=== PATIENT | female | born 1975 ===

== ENCOUNTER → 2020-06-19 13:38 | Outpatient (BNVA) | payer OTHER, SELFPAY | PROVIDERS: PCP Nurse Practitioner Family; Referring Provider Nurse Practitioner Family; Visit Provider Nurse Practitioner | DX: K21.9 Gastro-esophageal reflux disease without esophagitis (principal); K59.04 Chronic idiopathic constipation; K75.81 Nonalcoholic steatohepatitis (NASH); E66.01 Morbid (severe) obesity due to excess calories; R74.8 Abnormal levels of other serum enzymes; R30.0 Dysuria | CPT/HCPCS: 99213 ==

== ENCOUNTER → 2020-07-05 13:17 | Outpatient (BNVA) | payer OTHER, SELFPAY | PROVIDERS: PCP Nurse Practitioner Family; Referring Provider Nurse Practitioner Family; Visit Provider Nurse Practitioner | DX: K21.9 Gastro-esophageal reflux disease without esophagitis (principal); K59.04 Chronic idiopathic constipation; K75.81 Nonalcoholic steatohepatitis (NASH); R35.0 Frequency of micturition; E66.01 Morbid (severe) obesity due to excess calories; R81 Glycosuria; Z79.899 Other long term (current) drug therapy | CPT/HCPCS: 99214 ==

== ENCOUNTER 2020-07-12 11:07 | Outpatient (REF) | payer OTHER, SELFPAY ==
[2020-07-12 14:13] LABS: Estimated Average Glucose 120 mg/dL; Hemoglobin A1c % 5.8 %
[2020-07-12 14:15] LABS: Anion Gap 14 (12-20); Blood Urea Nitrogen 9 mg/dL (9-16); Calcium 9.4 mg/dL (8.4-10.2); Carbon Dioxide 28 mmol/L (22-29); Chloride 103 mmol/L (96-108); Estimated Glomerular Filt Rate > 60; Glucose Random 86 mg/dL (60-115); Potassium 4.5 mmol/l (3.3-5.1); Sodium 140 mmol/L (135-145)
== END 2020-07-12 11:08 | disposition home or self-care (01) ==
LOC: HO.HMGCLDS 11:07
PROVIDERS: PCP Nurse Practitioner Family; Visit Provider Nurse Practitioner Family
DX: R81 Glycosuria (principal)
CPT/HCPCS: 80048; 83036

== ENCOUNTER 2021-01-17 10:16 | Outpatient (REF) | payer OTHER, SELFPAY ==
[2021-01-17 13:50] LABS: MANUAL DIFF FLAG NO
[2021-01-17 13:54] LABS: Basophils Absolute Auto 0.1 X10*3/uL (0.0-0.2); Basophils Percent Auto 0.8 % (0-2); Eosinophils Absolute Auto 0.5 X10*3/uL (0.0-0.4); Eosinophils Percent Auto 3.8 % (0-4); Hematocrit 43.1 % (37-47); Hemoglobin 13.4 g/dl (12.0-16.0); Imm Gran Abs Auto 0.08 X10*3/uL (0.00-0.03); Imm Gran Pct Auto 0.7 % (0.0-0.4); Mean Corpuscular HGB Conc 31.1 g/dl (31.0-35.0); Mean Corpuscular Hemoglobin 23.1 pg (27.0-33.0); Mean Corpuscular Volume 74.3 fL (80-98); Mean Platelet Volume 10.8 fL (9.4-12.3); Monocytes Absolute Auto 0.7 X10*3/uL (0.1-1.2); Monocytes Percent Auto 5.5 % (2-11); Neutrophils Absolute Auto 7.7 X10*3/uL (2.0-8.3); Neutrophils Percent Auto 64.2 % (45-73); Platelet Count 332 X10*3/uL (160-400); Red Cell Distribution Width 17.2 % (11.0-16.0); White Blood Count 11.9 X10*3/uL (4.8-10.8)
[2021-01-17 13:58] LABS: Glucose Urine UA NEG (NEG); Leukocyte Esterase Urine NEG (NEG); Nitrite Urine NEG (NEG); PH 5.5 (5.0-8.0); Specific Gravity - Urine 1.025 (1.005-1.025); Urine Blood NEG (NEG); Urine Ketones NEG (NEG); Urine Protein NEG (NEG-TRACE)
[2021-01-17 14:00] LABS: Appearance Urine CLEAR; Color Urine YELLOW
[2021-01-17 14:03] LABS: D Dimer < 200 NG/ML
[2021-01-17 14:06] LABS: Alanine Aminotransferase 41 U/L (0-31); Albumin Level 4.1 g/dL (3.5-5.0); Alkaline Phosphatase 230 U/L (39-117); Anion Gap 13 (12-20); Aspartate Amino Transferase 27 U/L (5-31); Bilirubin Total 0.5 mg/dL (0.0-1.0); Blood Urea Nitrogen 12 mg/dL (9-16); Calcium 9.2 mg/dL (8.4-10.2); Carbon Dioxide 25 mmol/L (22-29); Chloride 104 mmol/L (96-108); Estimated Glomerular Filt Rate > 60; Glucose Random 101 mg/dL (60-115); Sodium 138 mmol/L (135-145); Total Protein 7.3 g/dL (6.5-8.0)
== END 2021-01-17 10:17 | disposition home or self-care (01) ==
LOC: HO.LAB 10:16
PROVIDERS: PCP Nurse Practitioner Family; Visit Provider Nurse Practitioner
DX: R74.8 Abnormal levels of other serum enzymes (principal); K75.81 Nonalcoholic steatohepatitis (NASH); K59.04 Chronic idiopathic constipation; K21.9 Gastro-esophageal reflux disease without esophagitis; E66.01 Morbid (severe) obesity due to excess calories; R30.0 Dysuria; R81 Glycosuria; M79.89 Other specified soft tissue disorders; M21.962 Unspecified acquired deformity of left lower leg; E13.9 Other specified diabetes mellitus without complications; N39.0 Urinary tract infection, site not specified
CPT/HCPCS: 36415; 80053; 81003; 85025; 85379

== ENCOUNTER → 2021-03-03 10:12 | Outpatient (BNVA) | payer OTHER, SELFPAY | PROVIDERS: PCP Nurse Practitioner Family; Visit Provider Nurse Practitioner ==

== ENCOUNTER → 2021-03-26 08:14 | Outpatient (BNVA) | payer OTHER, SELFPAY | PROVIDERS: Visit Provider Internal Medicine ==

== ENCOUNTER 2021-03-27 09:34 | Outpatient (REF) | payer OTHER, SELFPAY ==
--- NOTE | ~2021-03-27 | US_ITS ---
EXAMINATION: US ABDOMEN LIMITED CLINICAL INFORMATION: Nonalcoholic steatohepatitis. COMPARISON: CT abdomen and pelvis 01/29/2020. Ultrasound abdomen complete 01/02/2020 and 07/04/2019. TECHNIQUE: Real-time imaging of the right upper quadrant abdominal viscera. FINDINGS: PANCREAS: Not well seen due to overlying bowel gas. LIVER: The liver is normal in size. The liver contour is normal. Increased parenchymal echogenicity. No focal hepatic lesion. There is no intrahepatic biliary duct dilatation seen. GALLBLADDER: Normal. The gallbladder is physiologically distended without evidence of stones, sludge, polyps, wall thickening or pericholecystic fluid. COMMON BILE DUCT: Normal in caliber measuring 0.3 cm in diameter. RIGHT KIDNEY: Normal. No hydronephrosis. No renal calculi or focal parenchymal lesions. The kidney measures 10.8 cm in maximum dimension. FREE FLUID: None. US/US abdomen limited IMPRESSION: Increased hepatic parenchymal echogenicity, which can be seen in the setting of steatosis. Underlying hepatocellular disease cannot be excluded. No hepatic parenchymal lesion or biliary ductal dilatation.
[2021-03-27 11:31] LABS: Alanine Aminotransferase 31 U/L (0-31); Albumin Level 4.1 g/dL (3.5-5.0); Alkaline Phosphatase 230 U/L (39-117); Anion Gap 12 (12-20); Aspartate Amino Transferase 26 U/L (5-31); Bilirubin Direct 0.2 mg/dL (0.0-0.5); Bilirubin Total 0.4 mg/dL (0.0-1.0); Blood Urea Nitrogen 10 mg/dL (9-16); Calcium 9.5 mg/dL (8.4-10.2); Carbon Dioxide 26 mmol/L (22-29); Chloride 106 mmol/L (96-108); Estimated Glomerular Filt Rate > 60; Glucose Random 93 mg/dL (60-115); Phosphorus 3.3 mg/dL (2.7-4.5); Potassium 4.2 mmol/L (3.3-5.1); Sodium 140 mmol/L (135-145); Total Protein 7.4 g/dL (6.5-8.0)
[2021-03-27 11:42] LABS: Vitamin D 25-OH Total 45.3 ng/mL (>30)
[2021-03-31 13:22] LABS: Alpha Fetoprotein 2.2 ng/mL
[2021-04-01 10:27] LABS: Calcium (PTHI) 9.1 mg/dL (8.6-10.2); PTHI 50 pg/mL (14-64)
[2021-04-01 11:27] LABS: Alkaline Phosphatase Bone 29.1 mcg/L (5.0-18.8)
== END 2021-03-27 09:35 | disposition home or self-care (01) ==
LOC: HO.US 09:34
PROVIDERS: Absent Provider Internal Medicine; PCP Nurse Practitioner Family; Visit Provider Nurse Practitioner
DX: K75.81 Nonalcoholic steatohepatitis (NASH) (principal); R74.8 Abnormal levels of other serum enzymes; E55.9 Vitamin D deficiency, unspecified
CPT/HCPCS: 36415; 76705; 80053; 80076; 82105; 82248; 82306; 83970; 84075; 84100

== ENCOUNTER 2021-04-09 14:06 | Outpatient (REF) | payer OTHER, SELFPAY ==
--- NOTE | ~2021-04-09 | XR_ITS ---
EXAMINATION: XR FOOT, LEFT CLINICAL INFORMATION: Acquired deformity of left lower leg COMPARISON: Negative exam left foot 12/04/2009 TECHNIQUE: AP, lateral, and oblique views of the left foot. FINDINGS: There is a small calcaneal heel enthesophyte. Ankle mortise and subtalar joints are normal. There is no visible acute fracture, dislocation or subluxation seen. There is moderate degenerative spurring first and second tarsometatarsal joint best visualized on AP and lateral views. There is moderate distal foot soft tissue swelling. XR/XR foot LT min 3V IMPRESSION: Moderate degenerative hypertrophic spurring dorsal first and second tarsometatarsal joint. Also visualized is a small calcaneal enthesophyte. There is moderate distal dorsal soft tissue swelling. No visible acute fracture or dislocation seen.
== END 2021-04-09 14:07 | disposition home or self-care (01) ==
LOC: HO.XRAY 14:06
PROVIDERS: PCP Nurse Practitioner Family; Visit Provider Internal Medicine
DX: M21.962 Unspecified acquired deformity of left lower leg (principal)
CPT/HCPCS: 73630

== ENCOUNTER 2021-05-02 09:57 | Outpatient (REF) | payer OTHER, SELFPAY ==
[2021-05-02 12:03] LABS: MANUAL DIFF FLAG NO
[2021-05-02 12:14] LABS: Basophils Absolute Auto 0.1 X10*3/uL (0.0-0.2); Basophils Percent Auto 0.8 % (0-2); Eosinophils Absolute Auto 0.4 X10*3/uL (0.0-0.4); Eosinophils Percent Auto 3.2 % (0-4); Hematocrit 41.9 % (37-47); Hemoglobin 12.9 g/dl (12.0-16.0); Imm Gran Abs Auto 0.07 X10*3/uL (0.00-0.03); Imm Gran Pct Auto 0.6 % (0.0-0.4); Lymphocytes Absolute Auto 2.8 X10*3/uL (1.2-4.9); Lymphocytes Percent Auto 24.1 % (20-40); Mean Corpuscular HGB Conc 30.8 g/dl (31.0-35.0); Mean Corpuscular Hemoglobin 22.9 pg (27.0-33.0); Mean Corpuscular Volume 74.4 fL (80-98); Monocytes Absolute Auto 0.4 X10*3/uL (0.1-1.2); Monocytes Percent Auto 3.7 % (2-11); Neutrophils Absolute Auto 7.8 X10*3/uL (2.0-8.3); Neutrophils Percent Auto 67.6 % (45-73); Platelet Count 330 X10*3/uL (160-400); Red Blood Count 5.63 X10*6/uL (4.20-5.50); Red Cell Distribution Width 15.4 % (11.0-16.0); White Blood Count 11.6 X10*3/uL (4.8-10.8)
[2021-05-02 12:39] LABS: Anion Gap 12 (12-20); Blood Urea Nitrogen 12 mg/dL (9-16); Calcium 9.7 mg/dL (8.4-10.2); Carbon Dioxide 26 mmol/L (22-29); Chloride 107 mmol/L (96-108); Estimated Glomerular Filt Rate > 60; Glucose Random 107 mg/dL (60-115); Potassium 4.3 mmol/L (3.3-5.1); Sodium 141 mmol/L (135-145)
[2021-05-02 13:21] LABS: Erythrocyte Sedimentation Rate 36 MM/HR (0-20)
[2021-05-03 10:46] LABS: IgA 324 mg/dL (47-310); IgG 1087 mg/dL (600-1640); IgM 159 mg/dL (50-300)
[2021-05-04 03:37] LABS: SARS COV2 IgG Negative (Negative)
[2021-05-08 17:30] LABS: Asperg fumigatus Precip Abs NEGATIVE (NEGATIVE); Micropoly faeni Abs NEGATIVE (NEGATIVE); Pigeon serum Abs NEGATIVE (NEGATIVE); Saccharo pora viridis Abs NEGATIVE (NEGATIVE); Thermo candidus Abs NEGATIVE (NEGATIVE); Thermoa vulgaris #1 NEGATIVE (NEGATIVE)
== END 2021-05-02 09:58 | disposition home or self-care (01) ==
LOC: HO.LAB 09:57
PROVIDERS: PCP Nurse Practitioner Family; Visit Provider Hospitalist
DX: Z01.84 Encounter for antibody response examination (principal); J18.9 Pneumonia, unspecified organism; J45.909 Unspecified asthma, uncomplicated; G47.33 Obstructive sleep apnea (adult) (pediatric); R06.00 Dyspnea, unspecified
CPT/HCPCS: 36415; 80048; 82784; 82785; 85025; 85652; 86003; 86331; 86606; 86609; 86769; 99202

== ENCOUNTER → 2021-05-05 10:50 | Outpatient (REF) | payer OTHER, SELFPAY ==
--- NOTE | ~2021-05-05 | NM_ITS ---
EXAMINATION: NM BONE SCAN OF THE WHOLE BODY CLINICAL INFORMATION: Osteitis deformans of unspecified bone. COMPARISON: No previous bone scan is available for comparison. Radiographs of the left foot dated 04/09/2021 are the only recent radiographs available for comparison. TECHNIQUE: Multiple gamma scintillation camera images of the whole body were performed 3 hours following the intravenous administration of 36 mCi Tc-99m MDP. FINDINGS: In the head, no significant abnormalities are present. In the thoracic cage and upper extremities, no significant abnormalities are present. In the spine, there is minimally increased activity in a small focus in the left side of the mid cervical spine, probably in the posterior elements at L3. In the pelvis, no significant abnormalities are present. In the lower extremities, no significant abnormalities are present. No other definite bony abnormalities are noted. The urinary bladder and faint visualization of both kidneys are noted. NM/NM bone scan whole body IMPRESSION: Essentially normal whole body bone scan. Minimal abnormality in the mid lumbar spine may be due to some left-sided facet arthropathy at L3. There are no abnormalities suspicious for Paget's disease of bone (Osteitis deformans).
== END ==
LOC: HO.NUCMED 10:50
PROVIDERS: Visit Provider Internal Medicine
DX: M88.9 Osteitis deformans of unspecified bone (principal)
CPT/HCPCS: 78306; A9503

== ENCOUNTER 2021-05-22 09:43 | Outpatient (REF) | payer OTHER, SELFPAY ==
--- NOTE | 2021-05-22 17:42 | PFT_ITS ---
INDICATION: Dyspnea. SPIROMETRY: The FEV1 to FVC 97% with an FEV1 of 2.47 L, which is 99% predicted, and an FVC of 2.55 L, which is 83% predicted. No significant response to bronchodilators noted. Maximum voluntary ventilation 72% predicted. LUNG VOLUMES: Total lung capacity 113% predicted and residual volume 170% predicted. The expiratory reserve volume is 23% predicted. DIFFUSION CAPACITY: DLCO 98% predicted. COMPARISONS: None. INTERPRETATION: No obstructive nor restrictive ventilatory defects identified. No significant response to bronchodilators noted. There is a mild decrease in maximum voluntary ventilation secondary to likely deconditioning. Lung volumes with significant air trapping and a trend of hyperinflation and a decrease in the expiratory reserve volume secondary to an elevated BMI. Diffusion capacity is within normal limits. Clinical correlation warranted. Also to note, if asthma is in differential, methacholine challenge may be helpful in assessing for hyper-reactive airways. MD CHANEL Green/MODL / [id number]
== END 2021-05-22 09:44 | disposition home or self-care (01) ==
LOC: HO.RESP 09:43
PROVIDERS: PCP Nurse Practitioner Family; Visit Provider Hospitalist
DX: R06.00 Dyspnea, unspecified (principal); J18.9 Pneumonia, unspecified organism
CPT/HCPCS: 94060; 94727; 94729

== ENCOUNTER → 2021-06-06 14:37 | Outpatient (BNVA) | payer OTHER, SELFPAY | PROVIDERS: PCP Nurse Practitioner Family; Visit Provider Hospitalist | DX: J45.909 Unspecified asthma, uncomplicated (principal); J18.9 Pneumonia, unspecified organism; G47.33 Obstructive sleep apnea (adult) (pediatric); R06.00 Dyspnea, unspecified | CPT/HCPCS: 99212 ==

== ENCOUNTER → 2021-06-25 09:58 | Outpatient (REF) | payer OTHER, SELFPAY ==
--- NOTE | ~2021-06-25 | CT_ITS ---
EXAMINATION: CT CHEST WITHOUT CONTRAST CLINICAL INFORMATION: Pneumonia. COMPARISON: Most recent chest radiograph dated 12/19/2019. TECHNIQUE: Multidetector volumetric CT imaging of the chest was done. Axial MIP volume rendering provided. Sagittal and coronal reformatted images were obtained. This CT examination was performed using dose optimization techniques as appropriate, variously including the following: *Automated exposure control *Adjustment of mA and/or kV according to patient size (this includes techniques or standardized protocols for targeted exams where dose is matched to indication/reason for exam; i.e. extremities or head) *Use of iterative reconstruction technique DLP: 286 mGy-cm. FINDINGS: OIL DEVELOPER: Remarkable. LUNGS: Minimal ground-glass airspace opacities along the peripheral aspect of the right middle lobe and right lower lobe as well as medially within the right lower lobe. Additionally, similar ground-glass opacities centrally and inferiorly within the left lower lobe. Findings could represent very early pneumonia in the appropriate clinical setting. No large, confluent airspace consolidation. No significant pulmonary nodule or mass. The central airways are patent. MEDIASTINUM: No cardiomegaly. No pericardial effusion. No thoracic aortic dilatation. No significant superior mediastinal or hilar lymphadenopathy. Partially visualized and unremarkable thyroid. PLEURA: There is no pleural effusion. No pleural mass or thickening. AXILLA: No lymphadenopathy. UPPER ABDOMEN: Unremarkable. OSSEOUS STRUCTURES: Unremarkable. CT/CT chest wo con IMPRESSION: Minimal ground-glass airspace opacities within the bilateral lower lobes as well as the right middle lobe. Findings could represent very early pneumonia in the appropriate clinical setting. No large, confluent airspace opacity.
== END ==
LOC: HO.SL 09:58
PROVIDERS: PCP Nurse Practitioner Family; Visit Provider Hospitalist
DX: G47.33 Obstructive sleep apnea (adult) (pediatric) (principal); R40.0 Somnolence; R06.02 Shortness of breath; J18.9 Pneumonia, unspecified organism; J45.909 Unspecified asthma, uncomplicated
CPT/HCPCS: 71250; 95806

== ENCOUNTER → 2021-07-28 10:11 | Outpatient (BNVA) | payer OTHER, SELFPAY | PROVIDERS: PCP Nurse Practitioner Family; Visit Provider Hospitalist | DX: J45.909 Unspecified asthma, uncomplicated (principal); G47.33 Obstructive sleep apnea (adult) (pediatric); J18.9 Pneumonia, unspecified organism; R06.00 Dyspnea, unspecified; R10.13 Epigastric pain | CPT/HCPCS: 99212 ==

== ENCOUNTER 2021-09-16 15:22 | Outpatient (REF) | payer OTHER, SELFPAY ==
--- NOTE | ~2021-09-16 | XR_ITS ---
EXAMINATION: XR KNEE, RIGHT XR KNEE, LEFT CLINICAL INFORMATION: Bilateral knee pain. COMPARISON: None TECHNIQUE: Patient is imaged in 4 views including upright AP view with weightbearing. There are total of 8 views. FINDINGS: Right: Normal bony mineralization. No fracture, dislocation, or definite suprapatellar effusion. Hoffa's fat pad appears normal. There is no joint narrowing or erosive change or chondrocalcinosis. No lateralization patella. Left: Normal bony mineralization. No fracture, dislocation, or definite suprapatellar effusion. Hoffa's fat pad appears normal. There is no joint narrowing or erosive change or chondrocalcinosis. No lateralization patella. XR/XR knee LT 3V IMPRESSION: Unremarkable bilateral knees.
--- NOTE | ~2021-09-16 | XR_ITS ---
EXAMINATION: XR KNEE, RIGHT XR KNEE, LEFT CLINICAL INFORMATION: Bilateral knee pain. COMPARISON: None TECHNIQUE: Patient is imaged in 4 views including upright AP view with weightbearing. There are total of 8 views. FINDINGS: Right: Normal bony mineralization. No fracture, dislocation, or definite suprapatellar effusion. Hoffa's fat pad appears normal. There is no joint narrowing or erosive change or chondrocalcinosis. No lateralization patella. Left: Normal bony mineralization. No fracture, dislocation, or definite suprapatellar effusion. Hoffa's fat pad appears normal. There is no joint narrowing or erosive change or chondrocalcinosis. No lateralization patella. XR/XR knee RT 3V IMPRESSION: Unremarkable bilateral knees.
[2021-09-16 17:38] LABS: Alanine Aminotransferase 29 U/L (0-31); Albumin Level 4.4 g/dL (3.5-5.0); Alkaline Phosphatase 200 U/L (39-117); Aspartate Amino Transferase 20 U/L (5-31); Bilirubin Direct < 0.2 mg/dL (0.0-0.5); Bilirubin Total 0.2 mg/dL (0.0-1.0)
[2021-09-17 11:31] LABS: Alpha Fetoprotein 2.3 ng/mL
[2021-09-21 06:06] LABS: Alk.Phos Iso. Macrohepatic 0 % (<=0); Alk.Phos Isoenzymes Bone 31 % (28-66); Alk.Phos Isoenzymes Intest 0 % (1-24); Alk.Phos Isoenzymes Liver 69 % (25-69); Alk.Phos Isoenzymes Placental 0 % (<=0); Alk.Phos Isoenzymes Total 185 U/L (31-125)
== END 2021-09-16 15:23 | disposition home or self-care (01) ==
LOC: HO.XRAY 15:22
PROVIDERS: PCP Nurse Practitioner Family; Referring Provider Nurse Practitioner Family; Visit Provider Nurse Practitioner
DX: K21.9 Gastro-esophageal reflux disease without esophagitis (principal); K75.81 Nonalcoholic steatohepatitis (NASH); K59.04 Chronic idiopathic constipation; R74.8 Abnormal levels of other serum enzymes; M25.561 Pain in right knee; M25.562 Pain in left knee
CPT/HCPCS: 36415; 73562; 80076; 82105; 84080; 99212

== ENCOUNTER → 2021-10-14 15:45 | Outpatient (BNVA) | payer OTHER, SELFPAY | PROVIDERS: PCP Nurse Practitioner Family; Referring Provider Nurse Practitioner Family; Visit Provider Nurse Practitioner | DX: K75.81 Nonalcoholic steatohepatitis (NASH) (principal); K59.04 Chronic idiopathic constipation; K21.9 Gastro-esophageal reflux disease without esophagitis; M79.89 Other specified soft tissue disorders; R74.8 Abnormal levels of other serum enzymes | CPT/HCPCS: 99212 ==

== ENCOUNTER 2021-10-30 10:50 | Outpatient (REF) | payer OTHER, SELFPAY ==
[2021-10-30 12:16] LABS: MANUAL DIFF FLAG NO
[2021-10-30 12:19] LABS: Basophils Absolute Auto 0.1 X10*3/uL (0.0-0.2); Eosinophils Absolute Auto 0.2 X10*3/uL (0.0-0.4); Hematocrit 42.8 % (37.0-47.0); Hemoglobin 13.2 g/dl (12.0-16.0); Imm Gran Abs Auto 0.06 X10*3/uL (0.00-0.03); Imm Gran Pct Auto 0.5 % (0.0-0.4); Lymphocytes Percent Auto 27.1 % (20-40); Mean Corpuscular HGB Conc 30.8 g/dl (31.0-35.0); Mean Corpuscular Hemoglobin 23.1 pg (27.0-33.0); Mean Corpuscular Volume 74.8 fL (80.0-98.0); Mean Platelet Volume 10.7 fL (9.4-12.3); Monocytes Absolute Auto 0.5 X10*3/uL (0.1-1.2); Monocytes Percent Auto 4.4 % (2-11); Neutrophils Absolute Auto 7.3 x10*3/uL (2.0-8.3); Platelet Count 329 X10*3/uL (160-400); Red Blood Count 5.72 X10*6/uL (4.20-5.50); Red Cell Distribution Width 15.1 % (11.0-16.0); White Blood Count 11.2 X10*3/uL (4.8-10.8)
[2021-10-30 13:04] LABS: Erythrocyte Sedimentation Rate 57 MM/HR (0-20)
[2021-11-03 15:31] LABS: Scleroderma 70 Antibody <1.0 NEG AI (<1.0 NEG)
[2021-11-03 21:52] LABS: Immunoglobulin E 29 kU/L (<OR=114)
[2021-11-04 12:37] LABS: Anti Nuclear Antibody Pattern Nuclear, Homogeneous; Anti Nuclear Antibody Screen POSITIVE (NEGATIVE); Anti Nuclear Antibody Titer 1:40 titer
[2021-11-04 15:52] LABS: Cyclic Citrullinated Peptide <16 UNITS
== END 2021-10-30 10:51 | disposition home or self-care (01) ==
LOC: HO.LAB 10:50
PROVIDERS: PCP Nurse Practitioner Family; Visit Provider Hospitalist
DX: G47.33 Obstructive sleep apnea (adult) (pediatric) (principal); R06.00 Dyspnea, unspecified; J18.9 Pneumonia, unspecified organism; J44.9 Chronic obstructive pulmonary disease, unspecified
CPT/HCPCS: 36415; 82785; 85025; 85652; 86038; 86039; 86200; 86235; 89051; 99212

== ENCOUNTER → 2021-12-25 10:21 | Outpatient (BNVA) | payer OTHER, SELFPAY | PROVIDERS: PCP Nurse Practitioner Family; Visit Provider Hospitalist | DX: R06.00 Dyspnea, unspecified (principal); J18.9 Pneumonia, unspecified organism; J44.9 Chronic obstructive pulmonary disease, unspecified; J45.909 Unspecified asthma, uncomplicated; G47.33 Obstructive sleep apnea (adult) (pediatric); L08.9 Local infection of the skin and subcutaneous tissue, unspecified | CPT/HCPCS: 99212 ==

== ENCOUNTER 2022-04-08 07:24 | Outpatient (REF) | payer OTHER, SELFPAY ==
--- NOTE | ~2022-04-08 | XR_ITS ---
EXAMINATION: XR ANKLE, LEFT CLINICAL INFORMATION: Ankle pain. COMPARISON: None. TECHNIQUE: AP, lateral, and mortise views of the left ankle. FINDINGS: The ankle mortise and subtalar joints are normal. There is moderate bimalleolar soft tissue swelling. No visible acute fracture or dislocation seen. There is a small calcaneal enthesophyte. XR/XR ankle LT min 3V IMPRESSION: Small calcaneal heel enthesophyte. No acute fracture or dislocation seen. There is a moderate-sized enthesophyte along the dorsal metatarsal-tarsal joint.
== END 2022-04-08 07:25 | disposition home or self-care (01) ==
LOC: HO.HOSX 07:24
PROVIDERS: Visit Provider Physician Assistant
DX: S93.402A Sprain of unspecified ligament of left ankle, initial encounter (principal)
CPT/HCPCS: 73610; 99202; 99212

== ENCOUNTER 2022-04-14 16:34 | Outpatient (REF) | payer OTHER, SELFPAY ==
[2022-04-14 16:50] LABS: MANUAL DIFF FLAG NO
[2022-04-14 17:55] LABS: Basophils Absolute Auto 0.1 X10*3/uL (0.0-0.2); Basophils Percent Auto 0.8 % (0-2); Eosinophils Absolute Auto 0.5 X10*3/uL (0.0-0.4); Eosinophils Percent Auto 3.7 % (0-4); Hematocrit 40.7 % (37.0-47.0); Hemoglobin 12.6 g/dl (12.0-16.0); Imm Gran Abs Auto 0.07 X10*3/uL (0.00-0.03); Imm Gran Pct Auto 0.6 % (0.0-0.4); Lymphocytes Absolute Auto 2.9 X10*3/uL (1.2-4.9); Lymphocytes Percent Auto 23.2 % (20-40); Mean Corpuscular Hemoglobin 22.7 pg (27.0-33.0); Mean Corpuscular Volume 73.3 fL (80.0-98.0); Mean Platelet Volume 10.7 fL (9.4-12.3); Monocytes Absolute Auto 0.7 X10*3/uL (0.1-1.2); Monocytes Percent Auto 5.2 % (2-11); Neutrophils Absolute Auto 8.4 x10*3/uL (2.0-8.3); Neutrophils Percent Auto 66.5 % (45-73); Platelet Count 318 X10*3/uL (160-400); Red Blood Count 5.55 X10*6/uL (4.20-5.50); Red Cell Distribution Width 16.2 % (11.0-16.0); White Blood Count 12.6 X10*3/uL (4.8-10.8)
[2022-04-14 18:15] LABS: Alanine Aminotransferase 32 U/L (0-31); Albumin Level 3.9 g/dL (3.5-5.0); Alkaline Phosphatase 221 U/L (39-117); Anion Gap 17 (12-20); Aspartate Amino Transferase 28 U/L (5-31); Bilirubin Total 0.2 mg/dL (0.0-1.0); Blood Urea Nitrogen 12 mg/dL (9-16); Calcium 8.8 mg/dL (8.4-10.2); Carbon Dioxide 23 mmol/L (22-29); Chloride 108 mmol/L (96-108); Estimated Glomerular Filt Rate > 60; Glucose Random 103 mg/dL (60-115); Potassium 4.5 mmol/L (3.3-5.1); Sodium 143 mmol/L (135-145); Total Protein 7.2 g/dL (6.5-8.0)
[2022-04-17 13:21] LABS: Alpha Fetoprotein 1.8 ng/mL
== END 2022-04-14 16:35 | disposition home or self-care (01) ==
LOC: HO.LAB 16:34
PROVIDERS: PCP Nurse Practitioner Family; Visit Provider Nurse Practitioner
DX: K75.81 Nonalcoholic steatohepatitis (NASH) (principal); K59.04 Chronic idiopathic constipation; K21.9 Gastro-esophageal reflux disease without esophagitis
CPT/HCPCS: 36415; 80053; 82105; 85025; 99212

== ENCOUNTER 2022-04-27 14:00 | Outpatient (RCR) | payer OTHER, SELFPAY ==
--- NOTE | 2022-04-15 15:02 | MHC.PT.EP ---
[facility] [place] Office [place] Office [place] Office [address] Aiyana Hdz [address] [phone] F: [phone] F: [phone] F: [phone] F: [phone] Physical Therapy Plan of Care Date of Evaluation: Date of Surgery: n/a Diagnosis: L ankle sprain Assessment: Patient is a 47 year old R handed female who presents with s/s consistent with L ankle sprain. 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 Patient past medical history includes Abdominal adhesions, Asthma, Asthma-COPD overlap syndrome, Dyspnea, Elevated alkaline phosphatase level, Epigastric pain, BRENNA (obstructive sleep apnea), Paget disease of bone, Pneumonia, and Pneumonitis. Current impairments include pain, posture, ROM, strength, activity tolerance and functional mobility. Functional limitations include decreased ability to walk, stand, weight bear, and negotiate stairs. Patient is motivated with good rehab potential. Skilled PT will address impairments and functional limitations in order to achieve goals. Frequency and Duration: The patient will be seen 1x/week for 6 weeks Short Term Goals: I with HEP - 2 weeks AROM pain free and WNL - 3 weeks SLB > 20 seconds - 3 weeks Stagecraft Professor Goals: Able to walk 20 minutes without pain - 5 weeks LEFS 40/80 - 6 weeks Strength 4+/5 grossly - 6 weeks Return to PLOF - 6 weeks Treatment Plan: Modalities to reduce pain, spasms and effusion. Manual therapy to restore motion and function. Therapeutic exercise to improve strength and flexibility. Neuromuscular re-education for posture and balance. Therapeutic activities to return to functional activities of daily living. Electronically signed by: Justin Harris, PT Please sign and return to therapist. Thank you for your referral.
--- NOTE | 2022-08-26 08:19 | MHC.PT.DC ---
[facility] [place] Office [place] Office [place] Office [address] Aiyana Hdz [address] [phone] F: [phone] F: [phone] F: [phone] F: [phone] Physical Therapy Discharge Report Diagnosis: L ankle sprain Date of Surgery: n/a Date of Evaluation: 04/15/22 Date of Discharge: 08/26/22 Treatments to Date: 2 Cancellations to Date: No Shows to Date: Discharge Status: Independent with HEP Patient Elected to Stop Discharge Summary: Pt elected to continue with HEP exclusively after feeling much better. 04/27/22: pt progressing well with skilled PT. improved strength and ROM in ankle. we will progress as tolerated. CP to finish Patient is a 47 year old R handed female who presents with s/s consistent with L ankle sprain. 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 Patient past medical history includes Abdominal adhesions, Asthma, Asthma-COPD overlap syndrome, Dyspnea, Elevated alkaline phosphatase level, Epigastric pain, BRENNA (obstructive sleep apnea), Paget disease of bone, Pneumonia, and Pneumonitis. Current impairments include pain, posture, ROM, strength, activity tolerance and functional mobility. Functional limitations include decreased ability to walk, stand, weight bear, and negotiate stairs. Patient is motivated with good rehab potential. Skilled PT will address impairments and functional limitations in order to achieve goals. Electronically signed by: Justin Harris, PT Please sign and return to therapist. Thank you for your referral.
== END 2022-08-26 08:19 | disposition home or self-care (01) ==
LOC: HO.PTCHIC 14:00
PROVIDERS: PCP Nurse Practitioner Family; Visit Provider Nurse Practitioner Family
DX: M25.572 Pain in left ankle and joints of left foot (principal); S93.402A Sprain of unspecified ligament of left ankle, initial encounter
CPT/HCPCS: 97110; 97112; 97162

== ENCOUNTER → 2022-05-08 09:52 | Outpatient (BNVA) | payer OTHER, SELFPAY | PROVIDERS: PCP Nurse Practitioner Family; Visit Provider Hospitalist | DX: J44.9 Chronic obstructive pulmonary disease, unspecified (principal); J18.9 Pneumonia, unspecified organism; G47.33 Obstructive sleep apnea (adult) (pediatric); R06.00 Dyspnea, unspecified; Z79.899 Other long term (current) drug therapy | CPT/HCPCS: 99212 ==

== ENCOUNTER 2022-06-05 07:54 | Outpatient (REF) | payer OTHER, SELFPAY ==
--- NOTE | ~2022-06-05 | US_ITS ---
EXAMINATION: US COMPLETE ABDOMEN WITH LIVER ELASTOGRAPHY CLINICAL INFORMATION: ADAMS COMPARISON: Previous abdominal ultrasound March [address] January 2020 TECHNIQUE: Real-time imaging of the abdominal viscera. Noninvasive ultrasound liver fibrosis assessment is performed using Georgi ElastPQ point quantification shear wave elastography (2D-SWE) with a C5-2 MHz transducer. Multiple elastography samples are obtained. FINDINGS: PANCREAS: Normal. ABDOMINAL AORTA: The proximal, middle, and distal aortic segments are normal in caliber. INFERIOR VENA CAVA: Visualized portions are normal. LIVER: Liver echotexture is slightly increased probably representing fatty infiltration. Liver is normal in size and contour. No focal lesion or intrahepatic biliary duct dilatation. The right lobe measures 17.5 cm in length. The left lobe measures 9.5 cm in length. Portal flow is normal/hepatopedal Shear wave liver elastography median stiffness is 2.4 m/s (reference: normal median stiffness is 1.3 m/s or less). IQR/median stiffness to assess sampling precision is 0.1 (reference: good quality data set is IQR/median stiffness of 0.15 or less). GALLBLADDER: Normal. The gallbladder is physiologically distended without evidence of stones, sludge, polyps, wall thickening or pericholecystic fluid. COMMON BILE DUCT: Normal in caliber measuring 0.3 cm in diameter. RIGHT KIDNEY: Normal. No hydronephrosis. No renal calculi or focal parenchymal lesions. The kidney measures 10 cm in maximum dimension. LEFT KIDNEY: Normal. No hydronephrosis. No renal calculi or focal parenchymal lesions. The kidney measures 10.5 cm in maximum dimension. SPLEEN: Normal. The spleen measures 10.5 cm in maximum dimension. FREE FLUID: None. US/US abdomen comp w elastography IMPRESSION: 1. Impression: Slightly echogenic liver probably representing fatty infiltration. 2. Liver elastography: Adequate liver sampling. Increased liver stiffness. REFERENCE: Society of Radiologists in Ultrasound Liver Stiffness Thresholds (2020): LIVER STIFFNESS THRESHOLDS: *Liver Stiffness equal or less than 1.3 m/s: High probability of being normal. *Liver Stiffness less than 1.7 m/s: In the absence of other known clinical signs, rules out compensated advanced chronic liver disease. *Liver Stiffness 1.7-2.1 m/s: Suggestive of compensated advanced chronic liver disease but need further test for confirmation. *Liver Stiffness over 2.1 m/s: Rules in compensated advanced chronic liver disease. *Liver Stiffness over 2.4 m/s: Suggestive of clinically significant portal hypertension. QUALITY OF DATA SET: *IQR/Median value equal or less than 0.15 implies a quality data set. *IQR/Median value over 0.15 implies a poor quality data set. SIGNIFICANT CHANGE FROM PRIOR EXAM: Significant change if liver stiffness measurement is 10% or greater from prior exam. OTHER CONSIDERATIONS: The stage of liver fibrosis may be overestimated in the setting of acute hepatitis, liver inflammation, elevated liver function tests, hepatic vascular congestion, obstructive cholestasis, non-fasting state, and infiltrative diseases such as amyloidosis and lymphoma. In some patients with NAFLD, the liver stiffness thresholds for compensated advanced chronic liver disease may be lower. In causes other than viral hepatitis and NAFLD, liver stiffness thresholds are not well established.
== END 2022-06-05 07:55 | disposition home or self-care (01) ==
LOC: HO.US 07:54
PROVIDERS: Visit Provider Nurse Practitioner
DX: K75.81 Nonalcoholic steatohepatitis (NASH) (principal)
CPT/HCPCS: 76705; 76981

== ENCOUNTER → 2022-08-21 09:44 | Outpatient (BNVA) | payer OTHER, SELFPAY | PROVIDERS: PCP Nurse Practitioner Family; Visit Provider Hospitalist | DX: J18.9 Pneumonia, unspecified organism (principal); J44.9 Chronic obstructive pulmonary disease, unspecified; J45.909 Unspecified asthma, uncomplicated; G47.33 Obstructive sleep apnea (adult) (pediatric); Z99.89 Dependence on other enabling machines and devices; Z23 Encounter for immunization | CPT/HCPCS: 90471; 90677; 99212 ==

== ENCOUNTER → 2022-12-23 11:09 | Outpatient (BNVA) | payer OTHER, SELFPAY | PROVIDERS: PCP Nurse Practitioner Family; Visit Provider Hospitalist | DX: J45.909 Unspecified asthma, uncomplicated (principal); J18.9 Pneumonia, unspecified organism; J44.9 Chronic obstructive pulmonary disease, unspecified; G47.33 Obstructive sleep apnea (adult) (pediatric); R06.00 Dyspnea, unspecified | CPT/HCPCS: 99212 ==

== ENCOUNTER 2023-01-11 11:44 | Outpatient (REF) | payer OTHER, SELFPAY ==
[2023-01-11 14:00] LABS: MANUAL DIFF FLAG NO
[2023-01-11 14:11] LABS: Basophils Absolute Auto 0.1 X10*3/uL (0.0-0.2); Basophils Percent Auto 0.9 % (0-2); Eosinophils Absolute Auto 0.3 X10*3/uL (0.0-0.4); Eosinophils Percent Auto 2.3 % (0-4); Hematocrit 45.6 % (37.0-47.0); Imm Gran Abs Auto 0.07 X10*3/uL (0.00-0.03); Imm Gran Pct Auto 0.6 % (0.0-0.4); Lymphocytes Percent Auto 27.4 % (20-40); Mean Corpuscular HGB Conc 30.7 g/dl (31.0-35.0); Mean Corpuscular Hemoglobin 23.5 pg (27.0-33.0); Mean Corpuscular Volume 76.5 fL (80.0-98.0); Mean Platelet Volume 11.1 fL (9.4-12.3); Monocytes Absolute Auto 0.5 X10*3/uL (0.1-1.2); Monocytes Percent Auto 4.1 % (2-11); Neutrophils Absolute Auto 7.1 x10*3/uL (2.0-8.3); Neutrophils Percent Auto 64.7 % (45-73); Platelet Count 302 X10*3/uL (160-400); Red Blood Count 5.96 X10*6/uL (4.20-5.50); Red Cell Distribution Width 15.1 % (11.0-16.0); White Blood Count 10.9 X10*3/uL (4.8-10.8)
[2023-01-11 14:40] LABS: B Type Natriuretic Peptide 14 pg/mL (<100)
[2023-01-11 14:44] LABS: Alanine Aminotransferase 40 U/L (0-31); Albumin Level 4.3 g/dL (3.5-5.0); Alkaline Phosphatase 235 U/L (39-117); Anion Gap 13 (12-20); Aspartate Amino Transferase 27 U/L (5-31); Bilirubin Total 0.3 mg/dL (0.0-1.0); Blood Urea Nitrogen 13 mg/dL (9-16); Calcium 9.5 mg/dL (8.4-10.2); Carbon Dioxide 26 mmol/L (22-29); Chloride 107 mmol/L (96-108); Estimated Glomerular Filt Rate > 60; Glucose Random 82 mg/dL (60-115); Potassium 4.4 mmol/L (3.3-5.1); Sodium 142 mmol/L (135-145); Total Protein 7.4 g/dL (6.5-8.0)
== END 2023-01-11 11:45 | disposition home or self-care (01) ==
LOC: HO.HMGCLDS 11:44
PROVIDERS: PCP Nurse Practitioner Family; Visit Provider Nurse Practitioner Family
DX: M79.89 Other specified soft tissue disorders (principal)
CPT/HCPCS: 36415; 80053; 83880; 84443; 85025

== ENCOUNTER 2023-01-14 14:47 | Outpatient (REF) | payer OTHER, SELFPAY ==
[2023-01-14 14:59] LABS: MANUAL DIFF FLAG NO
[2023-01-14 15:44] LABS: Basophils Absolute Auto 0.1 X10*3/uL (0.0-0.2); Basophils Percent Auto 0.7 % (0-2); Eosinophils Absolute Auto 0.3 X10*3/uL (0.0-0.4); Eosinophils Percent Auto 2.3 % (0-4); Hematocrit 43.6 % (37.0-47.0); Hemoglobin 13.8 g/dl (12.0-16.0); Imm Gran Abs Auto 0.08 X10*3/uL (0.00-0.03); Imm Gran Pct Auto 0.7 % (0.0-0.4); Lymphocytes Absolute Auto 3.1 X10*3/uL (1.2-4.9); Lymphocytes Percent Auto 25.7 % (20-40); Mean Corpuscular HGB Conc 31.7 g/dl (31.0-35.0); Mean Corpuscular Hemoglobin 23.8 pg (27.0-33.0); Mean Corpuscular Volume 75.2 fL (80.0-98.0); Mean Platelet Volume 10.5 fL (9.4-12.3); Monocytes Absolute Auto 0.6 X10*3/uL (0.1-1.2); Neutrophils Absolute Auto 7.9 x10*3/uL (2.0-8.3); Neutrophils Percent Auto 65.6 % (45-73); Platelet Count 323 X10*3/uL (160-400); Red Cell Distribution Width 14.9 % (11.0-16.0); White Blood Count 12.1 X10*3/uL (4.8-10.8)
== END 2023-01-14 14:48 | disposition home or self-care (01) ==
LOC: HO.LAB 14:47
PROVIDERS: PCP Nurse Practitioner Family; Visit Provider Nurse Practitioner Family
DX: D72.829 Elevated white blood cell count, unspecified (principal)
CPT/HCPCS: 36415; 85025

== ENCOUNTER → 2023-01-21 12:27 | Outpatient (REF) | payer OTHER, SELFPAY ==
--- NOTE | ~2023-01-21 | XR_ITS ---
EXAMINATION: XR CHEST CLINICAL INFORMATION: Elevated WBC. COMPARISON: CT chest 06/25/2021. Chest radiograph 12/19/2019. TECHNIQUE: 2 views of the chest were obtained. FINDINGS: Normal appearance of the cardiomediastinal silhouette. No focal airspace opacity, pleural effusion or pneumothorax. No acute osseous abnormalities. The visualized upper abdomen is within normal limits. XR/XR chest 2V IMPRESSION: No acute cardiopulmonary findings.
--- NOTE | 2023-01-21 12:35 | CA_ITS ---
Transthoracic Echocardiogram Patient (Last, First, Middle): Asya Flores, Gender: Female Date of : 1975 Age: 47 Procedure Date: 01/21/2023 Procedure Type: Transthoracic Echocardiogram Location: OP Height: 152.4 cm Weight: 111.13 kg BSA: 2.03 m2 Heart Rate: 67 bpm BP: 118 / 70 mmHg Cable Supervisor: IRMA Referring MD: Ko Byers INSTRUMENT STERILIZER- Symptoms: M79.89 - Other specified soft tissue disorders Study Quality: Adequate ECG Rhythm: Sinus Conclusions: - The left ventricular systolic function is normal. The calculated ejection fraction is 64% by biplane method. - No obvious valvular pathology seen on this study. Findings Procedure Information The quality of the study was technically difficult. The study quality is limited by patients body habitus. Left Ventricle Normal left ventricular cavity size. There is normal left ventricular wall thickness. The left ventricular systolic function is normal. The calculated ejection fraction is 64% by biplane method. There is no evidence of regional wall motion abnormalities. Diastolic function is normal for age. LV peak GLS -24.4%. Right Ventricle Normal right ventricular cavity size and systolic function. Atria Both atria are normal in size. Aortic Valve There is a normal trileaflet aortic valve. There is no aortic valve stenosis. There is no aortic valve regurgitation. Mitral Valve The mitral valve appears normal. There is trace mitral valve regurgitation. There is no mitral valve stenosis. Pulmonic Valve The pulmonic valve is likely normal. Tricuspid Valve Normal tricuspid valve structure. There is no tricuspid valve regurgitation. Tricuspid regurgitation envelope is inadequate for calculation of right ventricular systolic pressure. Great Vessels The asc aorta is normal in size. Venous The inferior vena cava is normal in size and collapses less than 50% with inspiration. Pericardium/Pleural There is no evidence of pericardial effusion. Prior Study Comparison No significant change compared to prior study dated: 11/16/2018. Recommendations, Care & Conclusions No obvious valvular pathology seen on this study. Measurements 2D Linear Measurements IVSd: 0.68 0.6-0.9/0.6-1.0 cm LVIDd: 4.72 3.9-5.3/4.2-5.9 cm LVIDd Index: 2.33 2.4-3.2/2.2-3.1 cm/m2 LVIDs: 2.99 2.0-3.6 cm LVPWd: 0.64 0.7-1.1 cm LA Diam: 3.40 2.7-3.8/3.0-4.0 cm LAIDs Index: 1.67 1.5-2.3 cm/m2 LV Mass: 119.69 67-162/88-224 g LV Mass Index: 58.96 43-95/49-115 g/m2 LVOT Diam: 2.10 3.0+(-)1.3 cm 2D Systolic Function EF 4C: 62.00 >55% EF 2C: 63.20 >55% EF BiP: 63.50 >55% Mitral Valve MV Pk E: 1.13 MV PK A: 1.06 MV Decel Time: 265.00 E/A: 1.10 E'Lateral: 10.20 E'Medial: 7.07 E/E' Med: 16.00 E/E' Lat: 11.10 PHT: 78.00 MVA PHT: 2.82 Decel [place]: 4.25 Aortic Valve AoV Pk Kennedy: 1.84 AoV Mn Kennedy: 1.22 AoV VTI: 0.37 AoV Pk Grad: 14.00 Aov Mn Grad: 7.00 FERMIN Cont.VTI: 3.28 LVOT LVOT Pk Kennedy: 1.55 LVOT Mn Kennedy: 0.99 LVOT VTI: 0.35 LVOT Pk Grad: 10.00 LVOT Mn Grad: 5.00 LVOT Diam: 2.10 LVOT Area: 3.46 Diastolic Function MV Pk E: 1.13 MV Pk A: 1.06 E/A: 1.10 E'Medial: 7.07 E/E' Med: 16.00 E' Laterial: 10.20 E/E' Lat: 11.10 Right Ventricle TAPSE (mm): 22.20 TVS' Kennedy: 10.90 Tricuspid Valve RA Press: 8.00 Great Vessels Aorta Sinus of Valsalva: 2.60 2.0-3.5 cm Ao Asc: 2.70 2.1-3.4 cm Pulmonary Veins Pulm Vein S/D 1.10 Pulmonary Valve PV Pk Kennedy: 0.83 Peak PV Grad: 3.00 Updated in Other Vendor System with Status of Final Bc Pinto MD electronically signed on 01/22/2023 2:55:44 PM with status of Final
[2023-01-21 12:41] LABS: MANUAL DIFF FLAG NO
[2023-01-21 13:28] LABS: Basophils Absolute Auto 0.1 X10*3/uL (0.0-0.2); Basophils Percent Auto 0.9 % (0-2); Eosinophils Absolute Auto 0.3 X10*3/uL (0.0-0.4); Eosinophils Percent Auto 2.1 % (0-4); Hematocrit 43.3 % (37.0-47.0); Hemoglobin 13.8 g/dl (12.0-16.0); Imm Gran Abs Auto 0.09 X10*3/uL (0.00-0.03); Imm Gran Pct Auto 0.7 % (0.0-0.4); Lymphocytes Absolute Auto 3.4 X10*3/uL (1.2-4.9); Lymphocytes Percent Auto 26.1 % (20-40); Mean Corpuscular HGB Conc 31.9 g/dl (31.0-35.0); Mean Corpuscular Hemoglobin 23.8 pg (27.0-33.0); Mean Corpuscular Volume 74.7 fL (80.0-98.0); Mean Platelet Volume 10.7 fL (9.4-12.3); Monocytes Absolute Auto 0.6 X10*3/uL (0.1-1.2); Monocytes Percent Auto 4.8 % (2-11); Neutrophils Absolute Auto 8.4 x10*3/uL (2.0-8.3); Neutrophils Percent Auto 65.4 % (45-73); Platelet Count 312 X10*3/uL (160-400); Red Cell Distribution Width 14.7 % (11.0-16.0); White Blood Count 12.9 X10*3/uL (4.8-10.8)
== END ==
LOC: HO.CARD 12:27
PROVIDERS: PCP Nurse Practitioner Family; Visit Provider Nurse Practitioner Family
DX: R60.0 Localized edema (principal); M79.89 Other specified soft tissue disorders; D72.829 Elevated white blood cell count, unspecified
CPT/HCPCS: 36415; 71046; 85025; 93306; 93356

== ENCOUNTER 2023-05-21 12:03 | Emergency (ER) | payer OTHER, SELFPAY ==
--- NOTE | ~2023-05-21 | XR_ITS ---
EXAMINATION: XR KNEE, RIGHT CLINICAL INFORMATION: Pain. COMPARISON: None available. TECHNIQUE: AP, lateral, tunnel, and sunrise views of the right knee. FINDINGS: No fracture or joint effusion. Alignment is anatomic. Joint spaces are maintained. No abnormal soft tissue calcification. XR/XR knee RT 3V IMPRESSION: Normal right knee. EXAMINATION: XR KNEE, LEFT CLINICAL INFORMATION: Pain. COMPARISON: None available. TECHNIQUE: AP, lateral, and both oblique views of the left knee. FINDINGS: No fracture or joint effusion. Alignment is anatomic. Joint spaces are maintained. No abnormal soft tissue calcification. IMPRESSION: Normal left knee.
--- NOTE | ~2023-05-21 | XR_ITS ---
EXAMINATION: XR CHEST CLINICAL INFORMATION: Shortness of breath COMPARISON: None available. TECHNIQUE: 2 views of the chest were obtained. FINDINGS: No significant abnormality is noted involving the heart, lungs, mediastinum, bony thorax or soft tissues. XR/XR chest 2V IMPRESSION: Unremarkable chest examination.
--- NOTE | ~2023-05-21 | US_ITS ---
EXAMINATION: US VENOUS ULTRASOUND WITH DOPPLER LOWER EXTREMITY, BILATERAL CLINICAL INFORMATION: Pain and swelling. Evaluate for deep vein thrombosis. COMPARISON: 05/30/2020 TECHNIQUE: Ultrasound of the deep veins is performed from the hip to the calf with compression sonography and color and pulse Doppler assessment. Spectral analysis with color-flow imaging is performed. FINDINGS: The common femoral vein is compressible and exhibits a normal phasic waveform, bilaterally; this suggests that the iliac veins are widely patent above. Within each proximal thigh, the visualized profunda femoris vein is patent. The visualized greater saphenous veins and saphenofemoral junctions are normal. Superficial femoral vein is patent in the proximal, mid and distal aspect of each thigh. Popliteal vein is normal to the level of the trifurcation, bilaterally, and the visualized posterior tibial and peroneal veins are normal. No evidence of Urban's cyst. US/US venous duplex LE BI IMPRESSION: No evidence of deep vein thrombosis in either lower extremity.
--- NOTE | ~2023-05-21 | XR_ITS ---
EXAMINATION: XR KNEE, RIGHT CLINICAL INFORMATION: Pain. COMPARISON: None available. TECHNIQUE: AP, lateral, tunnel, and sunrise views of the right knee. FINDINGS: No fracture or joint effusion. Alignment is anatomic. Joint spaces are maintained. No abnormal soft tissue calcification. XR/XR knee LT 3V IMPRESSION: Normal right knee. EXAMINATION: XR KNEE, LEFT CLINICAL INFORMATION: Pain. COMPARISON: None available. TECHNIQUE: AP, lateral, and both oblique views of the left knee. FINDINGS: No fracture or joint effusion. Alignment is anatomic. Joint spaces are maintained. No abnormal soft tissue calcification. IMPRESSION: Normal left knee.
[2023-05-21 12:53] VITALS: BP 111/84; PULSE 66; RESP 18; TEMP 36.6; O2SAT 98; BMI 48.8
--- NOTE | 2023-05-21 12:53 | ECG_ITS ---
Test Reason : CHEST PAIN Blood Pressure : / mmHG Vent. Rate : 061 BPM Atrial Rate : 061 BPM P-R Int : 160 ms QRS Dur : 072 ms QT Int : 416 ms P-R-T Axes : 017 005 -21 degrees QTc Int : 418 ms Normal sinus rhythm Low voltage QRS Nonspecific ST and T wave abnormality Cannot rule out Inferior infarct , age undetermined Abnormal ECG When compared with ECG of 07-MAR-2006 23:06, Non-specific change in ST segment in Anterior leads Nonspecific T wave abnormality now evident in Anterolateral leads Referred By: Roosevelt Golden Electronically Signed By:PHOENIX ANDREA
--- NOTE | 2023-05-21 12:53 | ED_ITS ---
HPI - General Adult General Chief complaint: Extremity Problem Stated complaint: Leg Swelling COPD Asthma Time Seen by Provider: 05/21/23 21:13 Source: patient and RN notes reviewed Mode of arrival: ambulatory Limitations: no limitations History of Present Illness HPI narrative: This is a 48-year-old female, with history of morbid obesity, asthma, BRENNA, presenting to the emergency department with complaints of bilateral knee pain and leg pain x3 days. Patient denies any recent trauma or injury. She states that she has had increased trouble with ambulation secondary to pain in the legs. Patient denies any dizziness, chest pain, shortness breast, abdominal pain, nausea, vomiting diarrhea. She denies taking any medications at home to treat her current symptoms. No history of knee pain in the past. No other complaints or concerns at this time. MD complaint: Bilateral knee pain Onset (ago): day(s) Location: lower extremity Radiation: non-radiation Quality: aching Pain Consistency: constant Relieving factors: none Exacerbating factors: none Treatments prior to arrival: none Related Data Home Medications Medication Instructions Recorded Confirmed oxybutynin chloride 15 mg 15 mg PO DAILY 06/19/20 01/11/23 tablet,extended release 24 hr docusate sodium 100 mg capsule 100 mg PO BID PRN 04/13/22 01/11/23 CPAP (CPAP Machine/Device) 08/21/22 01/11/23 nebulizers 12/23/22 01/11/23 roflumilast 500 mcg tablet 500 mcg PO DAILY 01/11/23 01/11/23 (Daliresp) Previous Rx's Medication Instructions Recorded albuterol sulfate 90 mcg/actuation 2 inh inhalation DAILY PRN 03/26/21 aerosol inhaler bronchospasm 30 days #8.5 grams famotidine 40 mg tablet 40 mg PO BEDTIME PRN HUH 30 days 09/16/21 #30 tabs omeprazole 40 mg capsule,delayed 40 mg PO DAILY #30 caps 09/16/21 release fluticasone fur. 200 mcg-umeclid 1 inh inhalation DAILY 30 days #60 10/30/21 62.5 mcg-vilant 25 mcg ea inhalat.powder (Trelegy Ellipta) bisacodyl 5 mg tablet,delayed 10 mg (2 x 5 mg) PO .COMPLEX #90 04/14/22 release (Dulcolax (bisacodyl)) tabs linaclotide 72 mcg capsule 72 mcg PO QAM #30 caps 04/14/22 (Linzess) albuterol sulfate 2.5 mg/3 mL 2.5 mg (3 mL) inhalation Q6H PRN 05/08/22 (0.083 %) solution for nebulization shortness of breath or wheezing 30 days #180 mL tiotropium bromide 2.5 2 puff inhalation DAILY 90 days #3 08/23/22 mcg/actuation mist for inhalation ea (Spiriva Respimat) melatonin 5 mg tablet 5 mg PO BEDTIME PRN sleep 30 days 12/23/22 #30 tabs furosemide 20 mg tablet (Lasix) 20 mg PO DAILY 14 days #30 tabs 01/13/23 Symbicort 160 mcg-4.5 2 puff inhalation BID 30 days 05/04/23 mcg/actuation HFA aerosol inhaler #10.2 grams (budesonide-formoterol) Allergies Allergy/AdvReac Type Severity Reaction Status Date / Time anesthesia Allergy Severe vomiting Uncoded 01/11/23 10:08 Review of Systems 2 Review of Systems: Yes all other systems are reviewed and are negative Constitutional: Constitutional: Reports as per [facility] Past Medical History Attestation statement: The following information was validated with the patient. Medical History Abdominal adhesions Asthma Asthma-COPD overlap syndrome Dyspnea Elevated alkaline phosphatase level Epigastric pain BRENNA (obstructive sleep apnea) Paget disease of bone Pneumonia Pneumonitis Tubal ligation evaluation Vitamin D deficiency Surgical History H/O cervical polypectomy H/O lithotripsy History of appendectomy History of renal stent Family History Family History (Updated 04/09/23 @ 13:56 by JAYSON Soto) Father HTN (hypertension), benign BRENNA (obstructive sleep apnea) Mother HTN (hypertension), benign Osteoporosis Paternal Grandmother Stomach cancer Social History Social History Household Members: Children Alcohol intake: current Alcohol intake frequency: holidays/special occasions only Alcohol type: wine Patient Tobacco Use Status: Never used Tobacco Smoked in Last 30 Days: No e-Cigarette/Vaping Use: Never Used Second Hand Smoke Exposure: No Use of substances other than those prescribed or required for medical reasons: No Advance Directives: No Advance Directives Information Provided: Yes Patient : No Current occupational status: employed Current occupation: [employer] Cognitive needs: No Hearing needs: No Vision needs: No Physical Exam ED Vital Signs: Vital Signs - 24 hr 05/21/23 12:53 05/21/23 19:28 Temperature 97.9 F 97.8 F Pulse Rate 66 54 Respiratory Rate 18 18 Blood Pressure 111/84 141/63 H Pulse Oximetry 98 97 Oxygen Delivery Method Room Air Room Air BMI result Body Mass Index 48.8 Const General: cooperative, comfortable and no acute distress Orientation/consciousness: patient oriented x3 Limitations: no limitations HENMT Head: Yes normal to inspection, Yes normocephalic and Yes atraumatic Ears: hearing grossly normal bilaterally General nose exam: Normal external nose present Face and sinus: Yes normal facial exam Mouth: Normal oral and palatal mucosa present, oropharynx normal and moist mucous membranes Throat: Yes posterior oropharynx normal Eyes General: appearance normal, both eyes and all related structures Eyelids: Yes eyelids normal Conjunctivae: conjunctivae normal Sclerae: sclerae normal Pupils: Equal, round and reactive pupils present EOM: EOMs intact bilaterally Neck Neck: Yes normal visual inspection, Yes full ROM and Yes no lymphadenopathy Lymphatic: no lymphadenopathy noted Chest Chest palpation & inspection: normal inspection of the chest Resp Effort & Inspection: normal respiratory effort and able to speak in complete sentences Auscultation: clear to auscultation bilaterally, no crackles, no rales, no rhonchi and no wheezes Cardio Rate: regular rate Rhythm: regular rhythm Heart sounds: S1 normal heart sound present and S2 normal heart sound present GI Inspection: Yes normal to inspection Skin General skin exam: no rashes or lesions noted Trauma: no lacerations or abrasions Wounds: no wounds Neuro General: patient oriented x3 and moves all extremities Cranial nerves: Yes Equal, round and reactive pupils present Extrem General: Yes normal to inspection Right upper extremity: normal to inspection Left upper extremity: normal to inspection Right lower extremity: normal to inspection Left lower extremity: normal to inspection Course Course Course Narrative: CANDE- a 48-year-old female presents for evaluation of shortness of breath, bilateral leg swelling and bilateral calf pain. She reports history of DVT but is not currently anticoagulated. Plan for labs, ultrasound, chest x-ray Medications Administered Discontinued Medications Generic Name Dose Route Start Last Admin Trade Name Tera PRN Reason Stop Dose Admin Acetaminophen 975 mg 05/21/23 22:06 05/21/23 22:14 Acetaminophen 325 Mg Tablet PO 05/21/23 22:07 975 mg ONCE ONE Administration Medical Decision Making Medical Decision Making [facility] Narrative: This is a 48-year-old female presenting to the emergency department with complaints bilateral knee pain and calf pain x3 days. On arrival, vital signs within normal limits. Patient has tenderness to palpation upon both the knees diffusely with tenderness along the bilateral medial and lateral joint lines as well as the time please. Mild tenderness. Patient has no edema noted. Patient had labs performed, no leukocytosis, alk phos elevated at 230, which is at her baseline, BNP 39, troponin less than 2.7. Patient reports no chest pain or shortness of breath. Lungs are clear to auscultation bilaterally. Bilateral knee x-rays were performed without any bony abnormalities. Doppler does not show any blood clots. I discussed workup with patient and it is unclear what is causing her to have bilateral leg pain. Discussed with patient to follow-up with her primary care physician as soon as possible also given referral to vascular surgeon for further management. Differential Diagnosis Differential Diagnoses: The differential diagnosis associated with the presentation includes DVT, arthritis, muscle strain, Lab Data 05/21/23 13:07 05/21/23 13:07 Labs: Lab Results 05/21/23 Range/Units 13:07 WBC 11.3 H (4.8-10.8) X10*3/uL RBC 5.48 (4.20-5.50) X10*6/uL Hgb 13.3 (12.0-16.0) g/dl Hct 41.6 (37.0-47.0) % MCV 75.9 L (80.0-98.0) fL MCH 24.3 L (27.0-33.0) pg MCHC 32.0 (31.0-35.0) g/dl RDW 14.8 (11.0-16.0) % Plt Count 300 (160-400) X10*3/uL MPV 10.4 (9.4-12.3) fL Immature Gran % (Auto) 0.6 H (0.0-0.4) % Neut % (Auto) 65.6 (45-73) % Lymph % (Auto) 25.8 (20-40) % Harmon % (Auto) 5.0 (2-11) % Eos % (Auto) 2.2 (0-4) % Baso % (Auto) 0.8 (0-2) % Lymph # (Auto) 2.9 (1.2-4.9) X10*3/uL Harmon # (Auto) 0.6 (0.1-1.2) X10*3/uL Eos # (Auto) 0.3 (0.0-0.4) X10*3/uL Baso # (Auto) 0.1 (0.0-0.2) X10*3/uL Abs Immat Gran (auto) 0.07 H (0.00-0.03) X10*3/uL Absolute Neuts (auto) 7.4 (2.0-8.3) x10*3/uL Absolute Nucleated RBC 0.000 (0.0-0.012) X10*3/uL Nucleated RBC % (auto) 0.0 (0.0-0.2) /100WBC PT 12.9 (11.1-13.3) SEC INR 1.1 (0.9-1.1) APTT 30.7 (26.0-36.4) SEC Sodium 141 (135-145) mmol/L Potassium 4.1 (3.3-5.1) mmol/L Chloride 110 H (96-108) mmol/L Carbon Dioxide 24 (22-29) mmol/L Anion Gap 11 L (12-20) BUN 11 (9-16) mg/dL Creatinine 0.79 (0.5-1.4) mg/dL Estim Creat Clear Calc 98.8 Estimated GFR > 60 Random Glucose 97 (60-115) mg/dL Calcium 9.9 (8.4-10.2) mg/dL Total Bilirubin 0.3 (0.0-1.0) mg/dL AST 24 (5-31) U/L ALT 33 H (0-31) U/L Alkaline Phosphatase 230 H (39-117) U/L Troponin I High Sens < 2.7 (<3.5-17.0) ng/L B-Natriuretic Peptide 39 (<100) pg/mL Total Protein 7.4 (6.5-8.0) g/dL Albumin 4.0 (3.5-5.0) g/dL Lipase 23 (8-78) U/L Radiology Impression Discussion of test interpretation with radiology: I have reviewed the radiologist's reading. External Record Review External record reviewed: Inpatient record, Office record, Outpatient record, Prior outpatient labs, Prior outpatient radiology, Primary care record and Outside ED record Discharge Plan Discharge Clinical Impression: Bilateral knee pain Qualifiers: Chronicity: acute Qualified Code(s): M25.561 - Pain in right knee Pain and swelling of lower extremity Qualifiers: Laterality: left Qualified Code(s): M79.605 - Pain in left leg Patient Disposition: Home, Self-Care Instructions: Knee Pain (ED), Leg Cramps (ED) Additional Instructions: It is unclear what is causing you to have these symptoms. Please rest, wear compression stockings, elevate your legs. Take ibuprofen and Tylenol as needed for pain and symptoms. Your ultrasound was negative for blood clot in your legs. You may call vascular for further evaluation of ongoing bilateral leg pain and swelling. If any new or worsening symptoms occur including but not limited to chest pain or shortness of breath, please return for re-evaluation. Prescriptions: No Action albuterol sulfate 90 mcg/actuation HFA aerosol inhaler 2 inh inhalation DAILY PRN (Reason: bronchospasm) 30 Days Qty: 8.5 0RF furosemide [Lasix] 20 mg tablet 20 mg PO DAILY 14 Days Qty: 30 0RF Rx Instructions: Take one tablet daily for 14 days and follow up with PCP for advisement on additional course if needed. budesonide-formoterol [Symbicort] 160-4.5 mcg/actuation HFA aerosol inhaler 2 puff inhalation BID 30 Days Qty: 10.2 11RF docusate sodium 100 mg capsule 100 mg PO BID PRN Daliresp 500 mcg tablet 500 mcg PO DAILY famotidine 40 mg tablet 40 mg PO BEDTIME PRN (Reason: HUH) 30 Days Qty: 30 6RF omeprazole 40 mg capsule,delayed release(DR/EC) 40 mg PO DAILY Qty: 30 6RF oxybutynin chloride 15 mg tablet extended release 24hr 15 mg PO DAILY albuterol sulfate 2.5 mg /3 mL (0.083 %) solution for nebulization 2.5 mg inhalation Q6H PRN (Reason: shortness of breath or wheezing) 30 Days Qty: 180 11RF Trelegy Ellipta 200-62.5-25 mcg blister with device 1 inh inhalation DAILY 30 Days Qty: 60 12RF bisacodyl [Dulcolax (bisacodyl)] 5 mg tablet,delayed release (DR/EC) 10 mg PO .COMPLEX Qty: 90 6RF Rx Instructions: 10 mg orally 2 TABS QHS AND 1 QAM; Linzess 72 mcg capsule 72 mcg PO QAM Qty: 30 0RF Hold Instructions: Doctor's Order (DME) CPAP Machine/Device Device See Rx Instructions .Route Rx Instructions: As directed Spiriva Respimat 2.5 mcg/actuation mist 2 puff inhalation DAILY 90 Days Qty: 3 3RF (DME) nebulizers Misc See Rx Instructions .Route Rx Instructions: As directed melatonin 5 mg tablet 5 mg PO BEDTIME PRN (Reason: sleep) 30 Days Qty: 30 5RF
[2023-05-21 13:20] LABS: MANUAL DIFF FLAG NO
[2023-05-21 13:23] LABS: Basophils Absolute Auto 0.1 X10*3/uL (0.0-0.2); Basophils Percent Auto 0.8 % (0-2); Eosinophils Absolute Auto 0.3 X10*3/uL (0.0-0.4); Eosinophils Percent Auto 2.2 % (0-4); Hematocrit 41.6 % (37.0-47.0); Hemoglobin 13.3 g/dl (12.0-16.0); Imm Gran Abs Auto 0.07 X10*3/uL (0.00-0.03); Imm Gran Pct Auto 0.6 % (0.0-0.4); Lymphocytes Absolute Auto 2.9 X10*3/uL (1.2-4.9); Lymphocytes Percent Auto 25.8 % (20-40); Mean Corpuscular Hemoglobin 24.3 pg (27.0-33.0); Mean Corpuscular Volume 75.9 fL (80.0-98.0); Mean Platelet Volume 10.4 fL (9.4-12.3); Monocytes Absolute Auto 0.6 X10*3/uL (0.1-1.2); Neutrophils Absolute Auto 7.4 x10*3/uL (2.0-8.3); Neutrophils Percent Auto 65.6 % (45-73); Platelet Count 300 X10*3/uL (160-400); Red Blood Count 5.48 X10*6/uL (4.20-5.50); Red Cell Distribution Width 14.8 % (11.0-16.0); White Blood Count 11.3 X10*3/uL (4.8-10.8)
[2023-05-21 13:29] LABS: INTERNATIONAL NORM RATIO 1.1 (0.9-1.1); Prothrombin Time 12.9 SEC (11.1-13.3)
[2023-05-21 13:32] LABS: Partial Thromboplastin Time 30.7 SEC (26.0-36.4)
[2023-05-21 13:41] LABS: Alanine Aminotransferase 33 U/L (0-31); Alkaline Phosphatase 230 U/L (39-117); Anion Gap 11 (12-20); Aspartate Amino Transferase 24 U/L (5-31); Bilirubin Total 0.3 mg/dL (0.0-1.0); Blood Urea Nitrogen 11 mg/dL (9-16); Calcium 9.9 mg/dL (8.4-10.2); Carbon Dioxide 24 mmol/L (22-29); Chloride 110 mmol/L (96-108); Creatinine Clr Calc Pharmacy 98.8; Estimated Glomerular Filt Rate > 60; Glucose Random 97 mg/dL (60-115); Lipase 23 U/L (8-78); Potassium 4.1 mmol/L (3.3-5.1); Sodium 141 mmol/L (135-145); Total Protein 7.4 g/dL (6.5-8.0)
[2023-05-21 13:48] LABS: B Type Natriuretic Peptide 39 pg/mL (<100)
[2023-05-21 13:50] LABS: Troponin-I High Sensitivity < 2.7 ng/L (<3.5-17.0)
[2023-05-21 19:28] VITALS: BP 141/63; PULSE 54; RESP 18; TEMP 36.6; O2SAT 97
[2023-05-21] MEDS: Acetaminophen 325 MG TABLET 975 MG PO (22:14)
== END 2023-05-21 23:11 | disposition home or self-care (01) ==
PROVIDERS: Physician Assistant; Emergency Provider Internal Medicine; PCP Nurse Practitioner Family
DX: M25.561 Pain in right knee (principal); M25.562 Pain in left knee; M79.605 Pain in left leg; M79.604 Pain in right leg; R06.02 Shortness of breath; E66.01 Morbid (severe) obesity due to excess calories; Z68.42 Body mass index [BMI] 45.0-49.9, adult; Z86.718 Personal history of other venous thrombosis and embolism; Z79.899 Other long term (current) drug therapy
CPT/HCPCS: 36415; 71046; 73562; 80053; 83690; 83880; 84484; 85025; 85610; 85730; 93005; 93970; 99284; 99285

== ENCOUNTER 2023-06-18 11:11 | Outpatient (REF) | payer OTHER, SELFPAY ==
[2023-06-23 15:38] LABS: Anti Nuclear Antibody Screen POSITIVE (NEGATIVE); Anti Nuclear Antibody Titer 1:40 titer
== END 2023-06-18 11:12 | disposition home or self-care (01) ==
LOC: HO.LAB 11:11
PROVIDERS: PCP Nurse Practitioner Family; Visit Provider Hospitalist
DX: J45.40 Moderate persistent asthma, uncomplicated (principal); G47.33 Obstructive sleep apnea (adult) (pediatric); R06.09 Other forms of dyspnea; J18.9 Pneumonia, unspecified organism; R07.9 Chest pain, unspecified
CPT/HCPCS: 36415; 80048; 85652; 86038; 86039; 86225; 86617; 86618; 99212

== ENCOUNTER 2023-06-18 11:11 | Outpatient (AMB) | payer OTHER, SELFPAY ==
--- NOTE | 2023-06-18 11:23 | MHC.OFFVIS ---
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 At that time the patient was tested for COVID and she was negative. However after that she never felt the same. She continues to have episodes of shortness of breath. Her shortness of breath episodes happen suddenly in the can be moderate to severe. She has been evaluated in the ER at [facility] multiple times. The patient has had repeat x-rays without any acute disease. Her symptoms have been very debilitating. Will do a workup at this time looking for etiologies for pneumonitis. 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 Recently did did get him a dehumidifier. In the meantime the patient also had daytime drowsiness. She has significant episodes which she wakes up at nighttime. Her Margaret score is elevated 24. The patient will need to undergo a sleep study at this time as well. In addition to that did appears to have some degree of upper airway obstruction which could be secondary to vocal cord dysfunction that she be further addressed later on. 06/06/2021 the patient is here for a pulmonary follow-up visit. She continues to have dyspnea on exertion. Moderate severity. We did review her chest x-ray demonstrating no acute disease. Also, she did undergo pulmonary function studies which I personally be with her demonstrating significant air trapping likely from small airways disease and or bronchiolitis. Patient was supposed to undergo a CT scan of the chest but denied for some reason by her insurance company. Based on her ongoing symptoms and with a nondiagnostic chest x-ray along with abnormal pulmonary function studies I will again request for CT scan of the chest to further address the patient's symptoms. Patient also continues to have significant daytime drowsiness with an elevated Margaret score 24. She is to undergo a sleep study and we will review it once is available. She has responded partially well to the respiratory therapy and she continues to use it regularly. Also to know her blood work demonstrating an elevated white count. The rest of the blood work were without any other significant findings. 07/28/2021 the patient is here for a pulmonary follow-up visit. She is complaining of some substernal chest discomfort and epigastric discomfort. Symptoms tend to worsen when she lays flat. She also has episodes which she wakes up short of breath. She does have significant daytime drowsiness. Her Margaret score continues to be elevated 09/05. We did review her home sleep study. Her AHI was up to 18 events an hour. She has significant issues with hypoxia and also evidence of tachycardia throughout the night. I explained the findings to the patient. The patient is agreeable in starting CPAP at this time. in the meantime she does have the epigastric discomfort. It appears that may be gastritis or esophagitis due to reflux disease. Will go ahead and treat her for this at this time. If the patient is no better consider getting a barium swallow and also a cardiac evaluation. We did review her CT scan of the chest demonstrating minimal plan glass opacities at the bases suggesting the possibility of aspiration pneumonitis. In addition to that her blood work demonstrated some allergies to mold although her hypersensitivity panel was negative. Her inflammatory markers are slightly elevated. At this point the patient will start a reflux diet and start a PPI and will start CPAP therapy. We will assess her progress when she returns in 2-3 months. 10/30/2021 the patient is here for a pulmonary follow-up visit. Unfortunately the patient has not gotten her CPAP yet. It is mainly because of a long wait due to the lack of supplies through the [employer] I did call the [employer] company in the going to try to expedite her Pap therapy as well as possible. In the meantime she is complaining of episodes of shortness of breath and also chest discomfort. She had been having a lot of these episodes and then symptoms improved and now they seem to be getting worse. She also complains of lower extremity edema feels very edematous. Her chest back discomfort is in the reproducible. Primarily on the left side. Likely musculoskeletal. Never had a history of blood clots and the patient had a D-dimer in the past for similar symptoms which was negative and reassuring. The patient did have evidence of pneumonitis on her CT scan back June. Side just in the possibility of underlying connective tissue conditions or inflammatory conditions. Therefore will request additional blood work. In the meantime will treat her for her discomfort with nonsteroidal therapy. The patient continues to have asthma symptoms and chronic bronchitis. We will maximize respiratory therapy by placing her on Trelegy. However because of her frequent exacerbations she also responding well to Daliresp 12/25/2021 the patient is here for a pulmonary follow-up visit. She is getting discouraged because she has not received her CPAP yet. Again called the [employer] to try to help facilitate the process. I am hopeful that she is going to get a machine soon. In the meantime she continues to be symptomatic with daytime drowsiness and elevated Margaret score. Patient also also trying to stay active exercising and trying to cut down on over eating. However, she she has not seen the significant decrease in her weight which is discouraged in to her. Will go ahead and refer her to the weight management program. Actually, we did give her the information for her to call. The patient did start Daliresp. Appears to be helping some. Therefore will increase to the full dose of 500 mcg. Again, I did call the [employer] in order for her to start her CPAP therapy as soon as possible. She continues on the Trelegy inhaler. Appears to be affecting beneficial. Also to note we did review her blood work demonstrating a mild leukocytosis with an elevation in the sedimentation rate. I did ask her if she has any potential areas suggesting infection. And she does state that she has a toe that has a cut that has not been able to heel and does her. I did encourage her to reach out to her primary care doctor to look at this as soon as possible. 05/08/2022 the patient is here for a pulmonary follow-up visit. She finally got her CPAP machine. She is still getting used to it. The patient understands that she needs using more than 4 hours a night. I did download the machine in appears that she is trying to use it. Although, appears that she has a significant air leak likely from open her mouth using a nasal mask. Under reach out to the [employer] to see if they can help her with a full face mask or chin strap to help her minimize the air leakage. Her AHI still elevated at 8 episodes per hour likely due to the fact that she is having suggest significant air leak which is not helping with mean airway pressure to stent open the airway. Her respiratory status appears to be stable on the current respiratory medications. She is going to continue it. She is not clear if she is using the Daliresp. I did tell it that she needs to continue it for now. She is still dealing with infections over lower extremities although she will be seen podiatry soon. She does have lower extremity edema. Appears to be getting worse. I did advise her to continue with a low-sodium diet. I will give her a diuretic for 3 days to see if we can improve her volume status but she needs to understand that she cannot rely on this medication since sick potentially be harmful long-term. 08/21/2022 the patient is here for pulmonary follow-up visit. She has been having difficulties with her CPAP. The mask broke and she has not been able to use it. She did bring it into the office and appeared that the plastic crack. She has not gotten a new 1 as of yet. She is currently using an N20 mask. She does not like if she feels is a low to cumbersome. She rather have something smaller. I did recommend the P 10 nasal pillows. I do believe that this will be more comfortable for her. Otherwise her AHI is below 5 so is reassuring that she it is working. However, the patient has not been will to use it because of the broken mask. I was resubmit a prescription to her [employer] company in order to get the new supplies and a new mask. In the meantime she does complaint of dyspnea on exertion. She has been having increasing asthma symptoms. She has been using her rescue inhaler almost on a daily basis. She believes is because the season change in the weather and cold air. She has been on Trelegy. She does not feel like is working as well. Will go ahead and switch her over to a different inhaler, Breztri which I hope will work a little better for her without quicker time action and on more frequent administration. She is going to continue with the other medications. Will follow-up in 6 months. 12/23/2022 the patient is here for a pulmonary follow-up visit. She is still struggling with the CPAP. She is wearing the nasal mask. However, has significant air leakage therefore resulting in dry mouth and not able to tolerated. We did download the machine and appears that her AHI is down to about 3.5. The patient was provided with F 30 small mask in order for her to tolerate a fullface mask and avoid the air leak is through the mouth. The patient understands that she does use it every night for 4 hours so she can get the best effect specially since she is still very tired with an elevated Margaret score of 11/24. The patient is also complaining of significant lower extremity edema. She is trying to walk and exercise. She is trying to minimize salt intake. I will go ahead and send her additional diuretics at least 3-5 days. However, it appears to be more myxedema since is nonpitting. The patient should follow-up with her primary care doctor. I did request that she can call her primary care doctor's office to make an appointment to be further evaluated for the possibility of myxedema. She continues her respiratory medications with good effect. She has not required any prednisone or rescue inhaler. Will continue with current respiratory regimen at this time. 06/18/2023 the patient is here for a pulmonary follow-up visit. The patient is not feeling well at all. She did good to the ER earlier this month because of significant chest pain shortness of breath and knee pain and just discomfort everywhere. She was evaluated after 12 hours. No evidence of any blood clots in the patient was sent home. Now she she is complaining of difficulty breathing and she also complained of a rash. She does work outside a lot so therefore lying is also in differential. The patient is out of her diuretic. At this point the diuretics will be helpful just to get some volume off her and hopefully this will allow her to feel better. She may also have either a inflammatory arthritis or need to consider fibromyalgia as a possibility. She did have an elevated HERNESTO in the past. Will go ahead and repeat that. The meantime will try some Plaquenil to see if this helps her. Will just do a for a month. Will reassess after her PFTs. The patient may benefit from a Rheumatology consultation to further address her symptoms if her pulmonary evaluation is reassuring. [facility] Medical History (Updated 06/21/23 @ 19:43 by Hadley Shukla MD) Chest pain Asthma-COPD overlap syndrome Epigastric pain Pneumonia Asthma BRENNA (obstructive sleep apnea) Dyspnea Pneumonitis Paget disease of bone Vitamin D deficiency Elevated alkaline phosphatase level Abdominal adhesions Tubal ligation evaluation Surgical History H/O cervical polypectomy History of appendectomy H/O lithotripsy History of renal stent Family History (Updated 04/09/23 @ 13:56 by Laura Matias [facility]) Father HTN (hypertension), benign BRENNA (obstructive sleep apnea) Mother HTN (hypertension), benign Osteoporosis Paternal Grandmother Stomach cancer Social History Household Members: Children Alcohol intake: current Alcohol intake frequency: holidays/special occasions only Alcohol type: wine Patient Tobacco Use Status: Never used Tobacco e-Cigarette/Vaping Use: Never Used Second Hand Smoke Exposure: No Current occupational status: employed Current occupation: N Cognitive needs: No Hearing needs: No Vision needs: No Review of Systems Const Denies night sweats ENT Reports Normal hearing present, Denies change in voice, Denies lip swelling, Denies mouth pain, Reports nasal congestion, Reports nasal discharge and Denies tongue swelling Card Reports chest pain, Reports leg edema and Reports dyspnea Resp Reports chest congestion, Reports cough, Reports dyspnea, Denies stridor and Denies wheezing GI Reports abdominal pain Musc Denies no additional complaints Neuro Reports Normal hearing present, Denies Neuro-related abnormal movements and Denies Abnormal speech present Psych Denies no additional complaints David/Lymph Denies easy bleeding and Denies lymphadenopathy Aller/Immun Denies lip swelling, Denies tongue swelling and Denies wheezing Physical Exam Vital Signs: Last Vital Signs Pulse 76 06/18/23 11:25 Pulse Ox 98 06/18/23 11:25 Oxygen Delivery Method Room Air 06/18/23 11:25 BMI result Body Mass Index 46.9 Const General: alert Neck Neck: Yes normal visual inspection, Yes full ROM and Yes no lymphadenopathy Chest Chest palpation & inspection: normal inspection of the chest Resp Effort & Inspection: normal respiratory effort Auscultation: diminished lung sounds Cardio Rate: regular rate Rhythm: regular rhythm Heart sounds: S1 normal heart sound present and S2 normal heart sound present General: Yes no CVA tenderness Back/Spine/Pelvis Back: no CVA tenderness Neuro Cranial nerves: Yes Normal hearing present Speech: No Abnormal speech present Extrem General: Yes edema (non pitting) Assessment & Plan Assessment & Plan (1) Asthma: Code(s): J45.909 - Unspecified asthma, uncomplicated Qualifiers: Asthma severity: moderate Asthma persistence: persistent Asthma complication type: uncomplicated Qualified Code(s): J45.40 - Moderate persistent asthma, uncomplicated (2) BRENNA (obstructive sleep apnea): Code(s): G47.33 - Obstructive sleep apnea (adult) (pediatric) (3) Dyspnea: Code(s): R06.00 - Dyspnea, unspecified Qualifiers: Dyspnea type: dyspnea on exertion Qualified Code(s): R06.09 - Other forms of dyspnea (4) Pneumonitis: Code(s): J18.9 - Pneumonia, unspecified organism (5) Chest pain: Code(s): R07.9 - Chest pain, unspecified Qualifiers: Chest pain type: unspecified Qualified Code(s): R07.9 - Chest pain, unspecified Plan continue CPAP, needs to use it 4 hours or more. Will try a f30 small mask. Too much air leakage through the mouth. Needs to make sure she uses the therapy 4+hrs restart lasix trial of Plaquenil for 1 month bloodwork symbicort/spiriva (Breztri was not covered) continue Daliresp 500mcg short-acting beta agonist as needed melatonin for sleep follow-up in 2-3 months Orders: Orders Anti DNA DS Antibody 06/18/23 R07.9 - Chest pain, unspecified HERNESTO Reflex Titer and Pattern 06/18/23 R07.9 - Chest pain, unspecified Erythrocyte Sedimentation Rate 06/18/23 R07.9 - Chest pain, unspecified Lyme IgG/IgM w/reflex to WB 06/18/23 R07.9 - Chest pain, unspecified Basic Metabolic Panel 06/18/23 R07.9 - Chest pain, unspecified Medications: New hydroxychloroquine (Plaquenil) 200 mg PO DAILY 30 days 30 tabs 0RF Changed From furosemide (Lasix) Take one tablet daily for 14 days and follow up with PCP for advisement on additional course if needed. 20 mg PO DAILY 14 days 30 tabs 0RF To furosemide (Lasix) Take one tablet daily for 14 days and follow up with PCP for advisement on additional course if needed. 20 mg PO DAILY 30 days PRN 30 tabs 0RF edema Coding Level of Care Code Est Pt Level 4 (84769) Diagnoses Moderate persistent asthma without complication J45.40 Asthma severity: moderate Asthma persistence: persistent Asthma complication type: uncomplicated BRENNA (obstructive sleep apnea) G47.33 Dyspnea on exertion R06.09 Dyspnea type: dyspnea on exertion Pneumonitis J18.9 Chest pain, unspecified type R07.9 Chest pain type: unspecified Time Spent (min) 19
[2023-06-18 11:25] VITALS: PULSE 76; O2SAT 98; BMI 46.9
== END 2023-06-18 11:51 | disposition home or self-care (01) ==
PROVIDERS: PCP Nurse Practitioner Family; Visit Provider Hospitalist
DX: J45.40 Moderate persistent asthma, uncomplicated (principal); G47.33 Obstructive sleep apnea (adult) (pediatric); R06.09 Other forms of dyspnea; J18.9 Pneumonia, unspecified organism; R07.9 Chest pain, unspecified
CPT/HCPCS: 99214

== ENCOUNTER 2023-08-24 11:31 | Emergency (ER) | payer OTHER, SELFPAY ==
[2023-08-24 11:55] VITALS: BP 127/73; PULSE 56; RESP 18; TEMP 36.6; O2SAT 98; BMI 50.2
[2023-08-24 13:08] LABS: MANUAL DIFF FLAG NO
[2023-08-24 13:10] LABS: Appearance Urine Clear; Color Urine Yellow; Glucose Urine UA Negative (Negative); Leukocyte Esterase Urine Negative (Negative); Nitrite Urine Negative (Negative); PH 5.5 (5.0-9.0); Specific Gravity - Urine 1.025 (1.005-1.025); UPreg QC Valid YES; Urine Blood Negative (Negative); Urine Ketones Negative (Negative); Urine Pregnancy NEGATIVE (NEGATIVE); Urine Protein Negative (Neg-Trace)
[2023-08-24 13:11] LABS: Basophils Absolute Auto 0.1 X10*3/uL (0.0-0.2); Basophils Percent Auto 0.8 % (0-2); Eosinophils Absolute Auto 0.4 X10*3/uL (0.0-0.4); Eosinophils Percent Auto 3.3 % (0-4); Imm Gran Abs Auto 0.05 X10*3/uL (0.00-0.03); Imm Gran Pct Auto 0.4 % (0.0-0.4); Lymphocytes Absolute Auto 3.1 X10*3/uL (1.2-4.9); Mean Corpuscular HGB Conc 31.1 g/dl (31.0-35.0); Mean Corpuscular Hemoglobin 23.6 pg (27.0-33.0); Mean Corpuscular Volume 75.9 fL (80.0-98.0); Mean Platelet Volume 10.3 fL (9.4-12.3); Monocytes Absolute Auto 0.5 X10*3/uL (0.1-1.2); Monocytes Percent Auto 4.7 % (2-11); Neutrophils Absolute Auto 7.2 x10*3/uL (2.0-8.3); Neutrophils Percent Auto 63.8 % (45-73); Platelet Count 275 X10*3/uL (160-400); Red Blood Count 5.93 X10*6/uL (4.20-5.50); Red Cell Distribution Width 14.4 % (11.0-16.0); White Blood Count 11.3 X10*3/uL (4.8-10.8)
[2023-08-24 13:24] LABS: Alanine Aminotransferase 29 U/L (0-31); Albumin Level 4.3 g/dL (3.5-5.0); Alkaline Phosphatase 192 U/L (39-117); Anion Gap 12 (12-20); Aspartate Amino Transferase 23 U/L (5-31); Bilirubin Direct 0.1 mg/dL (0.0-0.5); Bilirubin Total 0.3 mg/dL (0.0-1.0); Blood Urea Nitrogen 11 mg/dL (9-16); Calcium 10.1 mg/dL (8.4-10.2); Carbon Dioxide 26 mmol/L (22-29); Chloride 107 mmol/L (96-108); Creatinine Clr Calc Pharmacy 100.5; Estimated Glomerular Filt Rate > 60; Glucose Random 90 mg/dL (60-115); Lipase 24 U/L (8-78); Potassium 4.3 mmol/L (3.3-5.1); Sodium 141 mmol/L (135-145); Total Protein 8.2 g/dL (6.5-8.0)
[2023-08-24 19:05] VITALS: BP 135/76; PULSE 59; RESP 17; TEMP 37.1; O2SAT 96
--- NOTE | 2023-08-24 19:35 | ED_ITS ---
HPI - General Adult General Chief complaint: Abdominal Pain Stated complaint: Abd pain, vaginal pain Time Seen by Provider: 08/24/23 19:02 History of Present Illness HPI narrative: Pt is a 48yo female who presents to the ED with 4 days of pelvic pressure and throbbing. She states that the pressure is 10/10. She notes a hx of endometriosis and uterine polyps and states the pain is similar to the pain she has had for those in the past. Pain radiates up into her lower abdomen. She has a hx of numerous [employer] procedures including 3 c/s, endometriosis ablations, and fibroid removals. Pt has not seen [employer] in over 2 years. She denies vaginal bleeding, discharge, dysuria, or fevers. She notes some pain with defecation. Related Data Home Medications Medication Instructions Recorded Confirmed oxybutynin chloride 15 mg 15 mg PO DAILY 06/19/20 01/11/23 tablet,extended release 24 hr docusate sodium 100 mg capsule 100 mg PO BID PRN 04/13/22 01/11/23 CPAP (CPAP Machine/Device) 08/21/22 01/11/23 nebulizers 12/23/22 01/11/23 roflumilast 500 mcg tablet 500 mcg PO DAILY 01/11/23 01/11/23 (Daliresp) Previous Rx's Medication Instructions Recorded albuterol sulfate 90 mcg/actuation 2 inh inhalation DAILY PRN 03/26/21 aerosol inhaler bronchospasm 30 days #8.5 grams famotidine 40 mg tablet 40 mg PO BEDTIME PRN HUH 30 days 09/16/21 #30 tabs omeprazole 40 mg capsule,delayed 40 mg PO DAILY #30 caps 09/16/21 release fluticasone fur. 200 mcg-umeclid 1 inh inhalation DAILY 30 days #60 10/30/21 62.5 mcg-vilant 25 mcg ea inhalat.powder (Trelegy Ellipta) bisacodyl 5 mg tablet,delayed 10 mg (2 x 5 mg) PO .COMPLEX #90 04/14/22 release (Dulcolax (bisacodyl)) tabs linaclotide 72 mcg capsule 72 mcg PO QAM #30 caps 04/14/22 (Linzess) albuterol sulfate 2.5 mg/3 mL 2.5 mg (3 mL) inhalation Q6H PRN 05/08/22 (0.083 %) solution for nebulization shortness of breath or wheezing 30 days #180 mL tiotropium bromide 2.5 2 puff inhalation DAILY 90 days #3 08/23/22 mcg/actuation mist for inhalation ea (Spiriva Respimat) melatonin 5 mg tablet 5 mg PO BEDTIME PRN sleep 30 days 12/23/22 #30 tabs Symbicort 160 mcg-4.5 2 puff inhalation BID 30 days 05/04/23 mcg/actuation HFA aerosol inhaler #10.2 grams (budesonide-formoterol) furosemide 20 mg tablet (Lasix) 20 mg PO DAILY PRN edema 30 days 06/22/23 #30 tabs hydroxychloroquine 200 mg tablet 200 mg PO DAILY 30 days #30 tabs 07/15/23 (Plaquenil) tramadol 50 mg tablet 50 mg PO Q6H PRN pain #12 tabs 08/24/23 Allergies Allergy/AdvReac Type Severity Reaction Status Date / Time anesthesia Allergy Severe vomiting Uncoded 08/24/23 11:55 Review of Systems 2 Constitutional: Constitutional: Denies chills, Denies fever(s) and Denies headache(s) Eyes: Eyes: Denies change in vision ENT: Denies headache(s) Cardiovascular: Cardiovascular: Denies chest pain and Denies dyspnea Respiratory: Respiratory: Denies dyspnea Gastrointestinal: Gastrointestinal: Denies constipation, Denies diarrhea, Denies nausea and Denies vomiting Genitourinary: Genitourinary: Denies abnormal vaginal bleeding, Denies difficulty voiding, Denies dysuria, Reports pelvic pain, Denies urinary urgency, Denies vaginal discharge and Reports other (pain with BM) Neurologic: Denies headache(s) [facility] Past Medical History Medical History (Updated 08/24/23 @ 19:36 by Roosevelt Golden) Chest pain Asthma-COPD overlap syndrome Epigastric pain Pneumonia Asthma BRENNA (obstructive sleep apnea) Dyspnea Pneumonitis Paget disease of bone Vitamin D deficiency Elevated alkaline phosphatase level Abdominal adhesions Tubal ligation evaluation Surgical History H/O cervical polypectomy History of appendectomy H/O lithotripsy History of renal stent Family History Family History (Updated 04/09/23 @ 13:56 by JAYSON Richardson) Father HTN (hypertension), benign BRENNA (obstructive sleep apnea) Mother HTN (hypertension), benign Osteoporosis Paternal Grandmother Stomach cancer Social History Social History Household Members: Children Alcohol intake: current Alcohol intake frequency: holidays/special occasions only Alcohol type: wine Patient Tobacco Use Status: Never used Tobacco e-Cigarette/Vaping Use: Never Used Second Hand Smoke Exposure: No Advance Directives: No Advance Directives Information Provided: No Patient : No Current occupational status: employed Current occupation: N Cognitive needs: No Hearing needs: No Vision needs: No Physical Exam ED Vital Signs: Vital Signs - 24 hr 08/24/23 11:55 08/24/23 19:05 Temperature 98 F 98.8 F Pulse Rate 56 59 Respiratory Rate 18 17 Blood Pressure 127/73 135/76 Pulse Oximetry 98 96 Oxygen Delivery Method Room Air BMI result Body Mass Index 50.2 Const General: cooperative, comfortable, no acute distress, alert and awake Orientation/consciousness: patient oriented x3 HENMT Head: Yes normal to inspection Ears: hearing grossly normal bilaterally General nose exam: Normal external nose present Eyes General: appearance normal, both eyes and all related structures Resp Effort & Inspection: normal respiratory effort and able to speak in complete sentences GI Inspection: Yes normal to inspection Palpation (GI): Soft to palpation and Tenderness to palpation present (GI) suprapubicly Neuro General: patient oriented x3 Cranial nerves: Yes CN's II-XII intact bilaterally Medical Decision Making Medical Decision Making MDM Narrative: 48-year-old female with history of endometriosis presents for evaluation of lower abdominal/pelvic pain. Her pain is central, nonlateralizing. This makes ovarian torsion less likely. Her physical exam is reassuring, she does have some mild tenderness on palpation but no guarding, no abdominal distention. The abdomen is soft. Her labs are reassuring, she does have a slightly chronically elevated white count which is consistent with her baseline. Low suspicion for acute intra-abdominal infection. UA is negative for infection. I discussed possible ultrasound of the pelvis with the patient to evaluate for ovarian cyst/urine fibroids versus thickened endometrium concerning for endometriosis. The patient declines at this time which I feel is appropriate she may follow-up as an outpatient. Differential Diagnosis Differential Diagnoses: The differential diagnosis associated with the presentation includes (endometriosis, uterine fibroids, PID, UTI, diverticulosis) Lab Data MDM Lab Attestation statement: I reviewed the patient's lab results. Chronically elevated leukocytosis of 11.3. No significant anemia, normal platelet count. No electrolyte abnormalities 08/24/23 13:03 08/24/23 13:03 Labs: Lab Results 08/24/23 08/24/23 Range/Units 13:00 13:03 WBC 11.3 H (4.8-10.8) X10*3/uL RBC 5.93 H (4.20-5.50) X10*6/uL Hgb 14.0 (12.0-16.0) g/dl Hct 45.0 (37.0-47.0) % MCV 75.9 L (80.0-98.0) fL MCH 23.6 L (27.0-33.0) pg MCHC 31.1 (31.0-35.0) g/dl RDW 14.4 (11.0-16.0) % Plt Count 275 (160-400) X10*3/uL MPV 10.3 (9.4-12.3) fL Immature Gran % (Auto) 0.4 (0.0-0.4) % Neut % (Auto) 63.8 (45-73) % Lymph % (Auto) 27.0 (20-40) % [place] % (Auto) 4.7 (2-11) % Eos % (Auto) 3.3 (0-4) % Baso % (Auto) 0.8 (0-2) % Lymph # (Auto) 3.1 (1.2-4.9) X10*3/uL [place] # (Auto) 0.5 (0.1-1.2) X10*3/uL Eos # (Auto) 0.4 (0.0-0.4) X10*3/uL Baso # (Auto) 0.1 (0.0-0.2) X10*3/uL Abs Immat Gran (auto) 0.05 H (0.00-0.03) X10*3/uL Absolute Neuts (auto) 7.2 (2.0-8.3) x10*3/uL Absolute Nucleated RBC 0.000 (0.0-0.012) X10*3/uL Nucleated RBC % (auto) 0.0 (0.0-0.2) /100WBC Sodium 141 (135-145) mmol/L Potassium 4.3 (3.3-5.1) mmol/L Chloride 107 (96-108) mmol/L Carbon Dioxide 26 (22-29) mmol/L Anion Gap 12 (12-20) BUN 11 (9-16) mg/dL Creatinine 0.79 (0.5-1.4) mg/dL Estim Creat Clear Calc 100.5 Estimated GFR > 60 Random Glucose 90 (60-115) mg/dL Calcium 10.1 (8.4-10.2) mg/dL Total Bilirubin 0.3 (0.0-1.0) mg/dL Direct Bilirubin 0.1 (0.0-0.5) mg/dL AST 23 (5-31) U/L ALT 29 (0-31) U/L Alkaline Phosphatase 192 H (39-117) U/L Total Protein 8.2 H (6.5-8.0) g/dL Albumin 4.3 (3.5-5.0) g/dL Lipase 24 (8-78) U/L Urine Color Yellow Urine Appearance Clear Urine pH 5.5 (5.0-9.0) Ur Specific [place] 1.025 (1.005-1.025) Urine Protein Negative (Neg-Trace) mg/dL Urine Glucose (UA) Negative (Negative) mg/dL Urine Ketones Negative (Negative) mg/dL Urine Blood Negative (Negative) Urine Nitrite Negative (Negative) Ur Leukocyte Esterase Negative (Negative) Urine Test NEGATIVE (NEGATIVE) Tests considered The following testing was considered but not selected: Ultrasound of the pelvis which patient deferred at this time Discharge Plan Discharge Clinical Impression: Lower abdominal pain Patient Disposition: Home, Self-Care Instructions: Abdominal Pain (ED) Additional Instructions: Your blood work, urine sample reassuring today It is possible that your symptoms are related to endometriosis nurse's uterine fibroids. I recommend that you follow-up with OBGYN, call tomorrow to make an appointment Return for new or worsening symptoms for imaging as he declined this today. Use ibuprofen or Tylenol for pain Use tramadol for more severe, breakthrough pain This may make you sleepy, do not drink alcohol or drive after taking Prescriptions: New tramadol 50 mg tablet 50 mg PO Q6H PRN (Reason: pain) Qty: 12 0RF No Action albuterol sulfate 90 mcg/actuation HFA aerosol inhaler 2 inh inhalation DAILY PRN (Reason: bronchospasm) 30 Days Qty: 8.5 0RF budesonide-formoterol [Symbicort] 160-4.5 mcg/actuation HFA aerosol inhaler 2 puff inhalation BID 30 Days Qty: 10.2 11RF furosemide [Lasix] 20 mg tablet 20 mg PO DAILY PRN (Reason: edema) 30 Days Qty: 30 0RF hydroxychloroquine [Plaquenil] 200 mg tablet 200 mg PO DAILY 30 Days Qty: 30 0RF docusate sodium 100 mg capsule 100 mg PO BID PRN Daliresp 500 mcg tablet 500 mcg PO DAILY famotidine 40 mg tablet 40 mg PO BEDTIME PRN (Reason: HUH) 30 Days Qty: 30 6RF omeprazole 40 mg capsule,delayed release(DR/EC) 40 mg PO DAILY Qty: 30 6RF oxybutynin chloride 15 mg tablet extended release 24hr 15 mg PO DAILY albuterol sulfate 2.5 mg /3 mL (0.083 %) solution for nebulization 2.5 mg inhalation Q6H PRN (Reason: shortness of breath or wheezing) 30 Days Qty: 180 11RF Trelegy Ellipta 200-62.5-25 mcg blister with device 1 inh inhalation DAILY 30 Days Qty: 60 12RF bisacodyl [Dulcolax (bisacodyl)] 5 mg tablet,delayed release (DR/EC) 10 mg PO .COMPLEX Qty: 90 6RF Rx Instructions: 10 mg orally 2 TABS QHS AND 1 QAM; Linzess 72 mcg capsule 72 mcg PO QAM Qty: 30 0RF Hold Instructions: Doctor's Order (DME) CPAP Machine/Device Device See Rx Instructions .Route Rx Instructions: As directed Spiriva Respimat 2.5 mcg/actuation mist 2 puff inhalation DAILY 90 Days Qty: 3 3RF (DME) nebulizers Misc See Rx Instructions .Route Rx Instructions: As directed melatonin 5 mg tablet 5 mg PO BEDTIME PRN (Reason: sleep) 30 Days Qty: 30 5RF Referrals: Choco Franz MD [Physician] - (pelvic pain) Interventions: ED Discharge Assessment Last Done: 08/24/23 19:55
== END 2023-08-24 19:55 | disposition home or self-care (01) ==
PROVIDERS: Emergency Provider Emergency Medicine
DX: R10.30 Lower abdominal pain, unspecified (principal); R10.2 Pelvic and perineal pain; Z79.899 Other long term (current) drug therapy
CPT/HCPCS: 36415; 80048; 80076; 81003; 81025; 83690; 85025; 99283; 99284

== ENCOUNTER 2023-09-09 14:36 | Outpatient (AMB) | payer OTHER, SELFPAY ==
[2023-09-09 14:47] VITALS: BP 118/78; PULSE 67; O2SAT 96; BMI 49.6
--- NOTE | 2023-09-09 14:47 | MHC.OFFVIS ---
Intake Vital Signs 09/09/23 14:47 Height 5 ft Weight 254 lb BMI 49.6 BP 118/78 Blood Pressure Location Lt brachial Position Sitting Pulse 67 Pulse Source Pulse Oximeter Pulse Oximetry (%) 96 Oxygen Delivery Method Room Air Intake Visit Reasons: asthma: 2 month f/u Intake Note: pt is here for follow up and states she is not too good, achy, having her shortness of breaths, (small attacks) when she walks or over works herself,lung pain, leg issues swelling and pain. She has not been using the cpap due to headaches. 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 At that time the patient was tested for COVID and she was negative. However after that she never felt the same. She continues to have episodes of shortness of breath. Her shortness of breath episodes happen suddenly in the can be moderate to severe. She has been evaluated in the ER at [facility] multiple times. The patient has had repeat x-rays without any acute disease. Her symptoms have been very debilitating. Will do a workup at this time looking for etiologies for pneumonitis. 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 Recently did did get him a dehumidifier. In the meantime the patient also had daytime drowsiness. She has significant episodes which she wakes up at nighttime. Her Grayland score is elevated 09/05. The patient will need to undergo a sleep study at this time as well. In addition to that did appears to have some degree of upper airway obstruction which could be secondary to vocal cord dysfunction that she be further addressed later on. 06/06/2021 the patient is here for a pulmonary follow-up visit. She continues to have dyspnea on exertion. Moderate severity. We did review her chest x-ray demonstrating no acute disease. Also, she did undergo pulmonary function studies which I personally be with her demonstrating significant air trapping likely from small airways disease and or bronchiolitis. Patient was supposed to undergo a CT scan of the chest but denied for some reason by her insurance company. Based on her ongoing symptoms and with a nondiagnostic chest x-ray along with abnormal pulmonary function studies I will again request for CT scan of the chest to further address the patient's symptoms. Patient also continues to have significant daytime drowsiness with an elevated Grayland score 08/06. She is to undergo a sleep study and we will review it once is available. She has responded partially well to the respiratory therapy and she continues to use it regularly. Also to know her blood work demonstrating an elevated white count. The rest of the blood work were without any other significant findings. 07/28/2021 the patient is here for a pulmonary follow-up visit. She is complaining of some substernal chest discomfort and epigastric discomfort. Symptoms tend to worsen when she lays flat. She also has episodes which she wakes up short of breath. She does have significant daytime drowsiness. Her Grayland score continues to be elevated 09/05. We did review her home sleep study. Her AHI was up to 18 events an hour. She has significant issues with hypoxia and also evidence of tachycardia throughout the night. I explained the findings to the patient. The patient is agreeable in starting CPAP at this time. in the meantime she does have the epigastric discomfort. It appears that may be gastritis or esophagitis due to reflux disease. Will go ahead and treat her for this at this time. If the patient is no better consider getting a barium swallow and also a cardiac evaluation. We did review her CT scan of the chest demonstrating minimal plan glass opacities at the bases suggesting the possibility of aspiration pneumonitis. In addition to that her blood work demonstrated some allergies to mold although her hypersensitivity panel was negative. Her inflammatory markers are slightly elevated. At this point the patient will start a reflux diet and start a PPI and will start CPAP therapy. We will assess her progress when she returns in 2-3 months. 10/30/2021 the patient is here for a pulmonary follow-up visit. Unfortunately the patient has not gotten her CPAP yet. It is mainly because of a long wait due to the lack of supplies through the [email or web address]. I did call the [employer] company in the going to try to expedite her Pap therapy as well as possible. In the meantime she is complaining of episodes of shortness of breath and also chest discomfort. She had been having a lot of these episodes and then symptoms improved and now they seem to be getting worse. She also complains of lower extremity edema feels very edematous. Her chest back discomfort is in the reproducible. Primarily on the left side. Likely musculoskeletal. Never had a history of blood clots and the patient had a D-dimer in the past for similar symptoms which was negative and reassuring. The patient did have evidence of pneumonitis on her CT scan back June. Side just in the possibility of underlying connective tissue conditions or inflammatory conditions. Therefore will request additional blood work. In the meantime will treat her for her discomfort with nonsteroidal therapy. The patient continues to have asthma symptoms and chronic bronchitis. We will maximize respiratory therapy by placing her on Trelegy. However because of her frequent exacerbations she also responding well to Daliresp 12/25/2021 the patient is here for a pulmonary follow-up visit. She is getting discouraged because she has not received her CPAP yet. Again called the [employer] to try to help facilitate the process. I am hopeful that she is going to get a machine soon. In the meantime she continues to be symptomatic with daytime drowsiness and elevated Grayland score. Patient also also trying to stay active exercising and trying to cut down on over eating. However, she she has not seen the significant decrease in her weight which is discouraged in to her. Will go ahead and refer her to the weight management program. Actually, we did give her the information for her to call. The patient did start Daliresp. Appears to be helping some. Therefore will increase to the full dose of 500 mcg. Again, I did call the [employer] in order for her to start her CPAP therapy as soon as possible. She continues on the Trelegy inhaler. Appears to be affecting beneficial. Also to note we did review her blood work demonstrating a mild leukocytosis with an elevation in the sedimentation rate. I did ask her if she has any potential areas suggesting infection. And she does state that she has a toe that has a cut that has not been able to heel and does her. I did encourage her to reach out to her primary care doctor to look at this as soon as possible. 05/08/2022 the patient is here for a pulmonary follow-up visit. She finally got her CPAP machine. She is still getting used to it. The patient understands that she needs using more than 4 hours a night. I did download the machine in appears that she is trying to use it. Although, appears that she has a significant air leak likely from open her mouth using a nasal mask. Under reach out to the [employer] company to see if they can help her with a full face mask or chin strap to help her minimize the air leakage. Her AHI still elevated at 8 episodes per hour likely due to the fact that she is having suggest significant air leak which is not helping with mean airway pressure to stent open the airway. Her respiratory status appears to be stable on the current respiratory medications. She is going to continue it. She is not clear if she is using the Daliresp. I did tell it that she needs to continue it for now. She is still dealing with infections over lower extremities although she will be seen podiatry soon. She does have lower extremity edema. Appears to be getting worse. I did advise her to continue with a low-sodium diet. I will give her a diuretic for 3 days to see if we can improve her volume status but she needs to understand that she cannot rely on this medication since sick potentially be harmful long-term. 08/21/2022 the patient is here for pulmonary follow-up visit. She has been having difficulties with her CPAP. The mask broke and she has not been able to use it. She did bring it into the office and appeared that the plastic crack. She has not gotten a new 1 as of yet. She is currently using an N20 mask. She does not like if she feels is a low to cumbersome. She rather have something smaller. I did recommend the P 10 nasal pillows. I do believe that this will be more comfortable for her. Otherwise her AHI is below 5 so is reassuring that she it is working. However, the patient has not been will to use it because of the broken mask. I was resubmit a prescription to her [employer] company in order to get the new supplies and a new mask. In the meantime she does complaint of dyspnea on exertion. She has been having increasing asthma symptoms. She has been using her rescue inhaler almost on a daily basis. She believes is because the season change in the weather and cold air. She has been on Trelegy. She does not feel like is working as well. Will go ahead and switch her over to a different inhaler, Breztri which I hope will work a little better for her without quicker time action and on more frequent administration. She is going to continue with the other medications. Will follow-up in 6 months. 12/23/2022 the patient is here for a pulmonary follow-up visit. She is still struggling with the CPAP. She is wearing the nasal mask. However, has significant air leakage therefore resulting in dry mouth and not able to tolerated. We did download the machine and appears that her AHI is down to about 3.5. The patient was provided with F 30 small mask in order for her to tolerate a fullface mask and avoid the air leak is through the mouth. The patient understands that she does use it every night for 4 hours so she can get the best effect specially since she is still very tired with an elevated Grayland score of 11/24. The patient is also complaining of significant lower extremity edema. She is trying to walk and exercise. She is trying to minimize salt intake. I will go ahead and send her additional diuretics at least 3-5 days. However, it appears to be more myxedema since is nonpitting. The patient should follow-up with her primary care doctor. I did request that she can call her primary care doctor's office to make an appointment to be further evaluated for the possibility of myxedema. She continues her respiratory medications with good effect. She has not required any prednisone or rescue inhaler. Will continue with current respiratory regimen at this time. 09/09/2023 the patient is here for a pulmonary follow-up visit. The patient is not feeling well at all. Still has significant chest pain, but overall better on the current therapy. Her shortness of breath is also better. Her lower extremity is worse, but appears to be more lymphaedema. The patient is out of her diuretic. At this point the diuretics will be helpful just to get some volume off her and hopefully this will allow her to feel better. She may also have either a inflammatory arthritis or need to consider fibromyalgia as a possibility. She did have an elevated HERNESTO in the past. Will go ahead and repeat that. The meantime will try some Plaquenil to see if this helps her. Will just do a for a month. The patient may benefit from a Rheumatology consultation to further address her symptoms if her pulmonary evaluation is reassuring. [facility] Medical History (Updated 09/09/23 @ 15:07 by Hadley Shukla MD) Lymphedema Chest pain Asthma-COPD overlap syndrome Epigastric pain Pneumonia Asthma BRENNA (obstructive sleep apnea) Dyspnea Pneumonitis Paget disease of bone Vitamin D deficiency Elevated alkaline phosphatase level Abdominal adhesions Tubal ligation evaluation Surgical History H/O cervical polypectomy History of appendectomy H/O lithotripsy History of renal stent Family History (Updated 04/09/23 @ 13:56 by Laura Lubin [facility]) Father HTN (hypertension), benign BRENNA (obstructive sleep apnea) Mother HTN (hypertension), benign Osteoporosis Paternal Grandmother Stomach cancer Social History Household Members: Children Alcohol intake: current Alcohol intake frequency: holidays/special occasions only Alcohol type: wine Patient Tobacco Use Status: Never used Tobacco e-Cigarette/Vaping Use: Never Used Second Hand Smoke Exposure: No Current occupational status: employed Current occupation: N Cognitive needs: No Hearing needs: No Vision needs: No Review of Systems Const Denies night sweats ENT Reports Normal hearing present, Denies change in voice, Denies lip swelling, Denies mouth pain, Reports nasal congestion, Reports nasal discharge and Denies tongue swelling Card Reports chest pain, Reports leg edema and Reports dyspnea Resp Reports chest congestion, Reports cough, Reports dyspnea, Denies stridor and Denies wheezing GI Reports abdominal pain Musc Denies no additional complaints Neuro Reports Normal hearing present, Denies Neuro-related abnormal movements and Denies Abnormal speech present Psych Denies no additional complaints David/Lymph Denies easy bleeding and Denies lymphadenopathy Aller/Immun Denies lip swelling, Denies tongue swelling and Denies wheezing Physical Exam Vital Signs: Last Vital Signs Pulse 67 09/09/23 14:47 BP 118/78 09/09/23 14:47 Pulse Ox 96 09/09/23 14:47 Oxygen Delivery Method Room Air 09/09/23 14:47 BMI result Body Mass Index 49.6 Const General: alert Neck Neck: Yes normal visual inspection, Yes full ROM and Yes no lymphadenopathy Chest Chest palpation & inspection: normal inspection of the chest Resp Effort & Inspection: normal respiratory effort Auscultation: diminished lung sounds Cardio Rate: regular rate Rhythm: regular rhythm Heart sounds: S1 normal heart sound present and S2 normal heart sound present General: Yes no CVA tenderness Back/Spine/Pelvis Back: no CVA tenderness Neuro Cranial nerves: Yes Normal hearing present Speech: No Abnormal speech present Extrem General: Yes edema (non pitting) Assessment & Plan Assessment & Plan (1) Lymphedema: Code(s): I89.0 - Lymphedema, not elsewhere classified (2) Asthma: Code(s): J45.909 - Unspecified asthma, uncomplicated Qualifiers: Asthma severity: moderate Asthma persistence: persistent Asthma complication type: uncomplicated Qualified Code(s): J45.40 - Moderate persistent asthma, uncomplicated (3) BRENNA (obstructive sleep apnea): Code(s): G47.33 - Obstructive sleep apnea (adult) (pediatric) (4) Dyspnea: Code(s): R06.00 - Dyspnea, unspecified Qualifiers: Dyspnea type: dyspnea on exertion Qualified Code(s): R06.09 - Other forms of dyspnea (5) Pneumonitis: Code(s): J18.9 - Pneumonia, unspecified organism (6) Chest pain: Code(s): R07.9 - Chest pain, unspecified Qualifiers: Chest pain type: unspecified Qualified Code(s): R07.9 - Chest pain, unspecified Plan continue CPAP, needs to use it 4 hours or more. Will try a f30 small mask. Too much air leakage through the mouth. Needs to make sure she uses the therapy 4+hrs restart lasix as needed trial of Plaquenil for 1 month symbicort/spiriva (Breztri was not covered) continue Daliresp 500mcg short-acting beta agonist as needed melatonin for sleep referral to lymphedema clinic at [facility] follow-up in 3-4 months Orders: Orders PT Evaluation and Treatment 09/09/23 I89.0 - Lymphedema, not elsewhere classified Medications: Refilled furosemide (Lasix) 20 mg PO DAILY 30 days PRN 30 tabs 0RF edema hydroxychloroquine (Plaquenil) 200 mg PO DAILY 30 days 30 tabs 1RF furosemide (Lasix) 20 mg PO DAILY 30 days PRN 30 tabs 0RF edema Coding Level of Care Code Est Pt Level 4 (28217) Diagnoses Lymphedema I89.0 Moderate persistent asthma without complication J45.40 Asthma severity: moderate Asthma persistence: persistent Asthma complication type: uncomplicated BRENNA (obstructive sleep apnea) G47.33 Dyspnea on exertion R06.09 Dyspnea type: dyspnea on exertion Pneumonitis J18.9 Chest pain, unspecified type R07.9 Chest pain type: unspecified Time Spent (min) 17
== END 2023-09-09 15:15 | disposition home or self-care (01) ==
PROVIDERS: PCP Nurse Practitioner Family; Visit Provider Hospitalist
DX: I89.0 Lymphedema, not elsewhere classified (principal); J45.40 Moderate persistent asthma, uncomplicated; G47.33 Obstructive sleep apnea (adult) (pediatric); R06.09 Other forms of dyspnea; J18.9 Pneumonia, unspecified organism; R07.9 Chest pain, unspecified
CPT/HCPCS: 99214

== ENCOUNTER → 2023-09-09 14:36 | Outpatient (BNVA) | payer OTHER, SELFPAY | PROVIDERS: PCP Nurse Practitioner Family; Visit Provider Hospitalist | DX: J45.40 Moderate persistent asthma, uncomplicated (principal); J18.9 Pneumonia, unspecified organism; I89.0 Lymphedema, not elsewhere classified; G47.33 Obstructive sleep apnea (adult) (pediatric); R06.09 Other forms of dyspnea; R07.9 Chest pain, unspecified | CPT/HCPCS: 99212 ==

== ENCOUNTER 2023-09-15 15:05 | Outpatient (REF) | payer OTHER, SELFPAY ==
[2023-09-15 17:39] LABS: Hematocrit 42.3 % (37.0-47.0); Hemoglobin 13.5 g/dl (12.0-16.0); Mean Corpuscular HGB Conc 31.9 g/dl (31.0-35.0); Mean Corpuscular Hemoglobin 23.9 pg (27.0-33.0); Mean Corpuscular Volume 74.7 fL (80.0-98.0); Mean Platelet Volume 11.1 fL (9.4-12.3); Platelet Count 292 X10*3/uL (160-400); Red Blood Count 5.66 X10*6/uL (4.20-5.50); Red Cell Distribution Width 14.5 % (11.0-16.0); White Blood Count 11.2 X10*3/uL (4.8-10.8)
== END 2023-09-15 15:06 | disposition home or self-care (01) ==
LOC: HO.LAB 15:05
PROVIDERS: PCP Nurse Practitioner Family; Visit Provider Obstetrics & Gynecology
DX: N93.9 Abnormal uterine and vaginal bleeding, unspecified (principal); N76.0 Acute vaginitis; R10.2 Pelvic and perineal pain; N92.6 Irregular menstruation, unspecified; B96.89 Other specified bacterial agents as the cause of diseases classified elsewhere; Z32.02 Encounter for pregnancy test, result negative
CPT/HCPCS: 36415; 81003; 81025; 83001; 83002; 84146; 84443; 84702; 85027; 86780; 86803; 87340; 99202

== ENCOUNTER 2023-09-15 15:05 | Outpatient (AMB) | payer OTHER, SELFPAY ==
--- NOTE | 2023-09-15 15:24 | MHC.OFFVIS ---
Intake Vital Signs 09/15/23 15:25 Height 5 ft Weight 254 lb BMI 49.6 BP 110/66 Intake Visit Reasons: ER follow up Allergies anesthesia Allergy (Severe, Uncoded 09/15/23 15:29) vomiting HPI HPI Comments History of Present Illness Details The patient is presenting with lower pelvic pain started 1-2 we ago. It's intermittent in nature lasting few seconds and occurs multiple times per day. it is associated with nausea, no vomiting, no dysuria, frequency , incontinence, no feverishness. Patient has history of endometriosis The patient is complaining of irregular menstrual cycles in addition to vaginal order over the last few days Last Pap smear mammogram were many years ago [facility] Medical History (Updated 09/15/23 @ 15:49 by Choco Franz MD) History of endometriosis Lymphedema Chest pain Asthma-COPD overlap syndrome Epigastric pain Pneumonia Asthma BRENNA (obstructive sleep apnea) Dyspnea Pneumonitis Paget disease of bone Vitamin D deficiency Elevated alkaline phosphatase level Abdominal adhesions Tubal ligation evaluation Surgical History H/O cervical polypectomy History of appendectomy H/O lithotripsy History of renal stent Family History Father HTN (hypertension), benign BRENNA (obstructive sleep apnea) Mother HTN (hypertension), benign Osteoporosis Paternal Grandmother Stomach cancer Social History Household Members: Children Alcohol intake: current Alcohol intake frequency: holidays/special occasions only Alcohol type: wine Patient Tobacco Use Status: Never used Tobacco e-Cigarette/Vaping Use: Never Used Second Hand Smoke Exposure: No Current occupational status: employed Current occupation: [employer] Cognitive needs: No Hearing needs: No Vision needs: No Female Reproductive History Menstrual Total pregnancies: 3 Full term: 2 Premature: 1 Number of Living Children: 3 Multiple births: 1 Review of Systems Const All systems reviewed & are unremarkable except as noted in HPI and below Card Reports as per HPI Resp Reports as per HPI GI Reports as per HPI and Reports no additional complaints Reports as per HPI Physical Exam Vital Signs: Last Vital Signs BP 110/66 09/15/23 15:25 BMI result Body Mass Index 49.6 Const General: cooperative, healthy appearing and comfortable Chest Chest palpation & inspection: normal inspection of the chest and normal palpation of entire chest wall Breast/axilla inspection: normal inspection of the breasts and normal inspection of the axillae Breast/axilla palpation: normal palpation of the breasts, normal palpation of the axillae and no axillary lymphadenopathy Resp Effort & Inspection: normal respiratory effort Auscultation: clear to auscultation bilaterally Percussion: percussion normal Cardio Palpation: normal PMI Rate: regular rate Rhythm: regular rhythm Heart sounds: no murmurs and no rubs Peripheral pulses: Peripheral pulses 2+ throughout GI Inspection: Yes normal to inspection Palpation (GI): Soft to palpation, nontender, no guarding, not rigid and No hepatosplenomegaly present Percussion: Yes normal to percussion Auscultation: normal bowel sounds Rectal Exam - Female: deferred General: Yes bladder normal to palpation External Female Exam: No lesion Speculum Exam - Vagina: normal appearance of the vagina, normal palpation, normal vaginal discharge and not erythematous Speculum Exam - Cervix: normal appearance of the cervix and normal palpation Bimanual exam- vagina & uterus: normal bimanual exam, normal palpation, uterine size normal, bladder normal to palpation, consistency normal and normal palpation Bimanual Exam- Adnexa, other: normal adnexae, no masses and no tenderness Results AMB Test Urine AMB Test Urine Negative Last Edit by JAYSON Noble on 09/15/23 15:37 AMB Urinalysis, Automated UA Leukoctes 0 David/uL Last Edit by JAYSON Noble on 09/15/23 15:37 UA Nitrite Negative Last Edit by JAYSON Noble on 09/15/23 15:37 UA Urobilinogen 0 mg/dL Last Edit by JAYSON Noble on 09/15/23 15:37 UA Protein 0 mg/dL Last Edit by JAYSON Noble on 09/15/23 15:37 UA pH 5.5 Last Edit by JAYSON Noble on 09/15/23 15:37 UA Blood 0 Sawyer/uL Last Edit by JAYSON Noble on 09/15/23 15:37 UA Specific Hooper 1.030 Last Edit by JAYSON Noble on 09/15/23 15:37 UA Ketone Negative Last Edit by Krupa Grigsby JAYSON on 09/15/23 15:37 UA Bilirubin 0 mg/dL Last Edit by Krupa Grigsby JAYSON on 09/15/23 15:37 UA Glucose 0 mg/dL Last Edit by Krupa Grigsby JAYSON on 09/15/23 15:37 Assessment & Plan Assessment & Plan (1) Pelvic pain: Code(s): R10.2 - Pelvic and perineal pain Plan: Urine dip and test done in the office were both negative. GC and chlamydia taken and pelvic ultrasound ordered. Discussed with the patient the differential diagnosis of pelvic pain including but not limited to adnexal, uterine masses, pelvic infections (PID), GI the (Irritable bowel syndrome, diverticulitis, others), musculoskeletal, myofascial pain abdominal wall , adhesions, endometriosis, psychological and others causes. Will check results and treat accordingly. All questions answered, the patient verbalized understanding. Instructed the patient to schedule follow-up appointment in 2 weeks (2) Bacterial vaginosis: Code(s): N76.0 - Acute vaginitis; B96.89 - Other specified bacterial agents as the cause of diseases classified elsewhere Plan: GC and chlamydia cultures with BV panel taken. Per CDC recommendation, will screen for STI, HepBs Ag, HIV, RPR, Hep C Ab ordered. Will treat with Flagyl 500 mg p.o. b.i.d. x 7 days, Instructions given to the patient to refrain from sexual activity or to use condoms consistently and correctly during the BV treatment regimen, not to douch, it might increase the risk for relapse, and to call if symptoms persist or recur. (3) Abnormal uterine bleeding: Code(s): N93.9 - Abnormal uterine and vaginal bleeding, unspecified Plan: Screening mammogram ordered. Co testing done, GC and chlamydia taken CBC, TSH, HCG, and pelvic ultrasound ordered. Discussed with the patient the different causes of abnormal bleeding including thyroid disorders, uterine and ovarian pathology, endometrial hyperplasia, carcinoma and other potential causes. Discussed with the patient the work up including CBC (to r/o anemia), TSH, pelvic Ultrasound, endometrial biopsy to r/o endometrial pathology. All questions answered and the patient verbalized understanding. Instructed the patient to schedule an appointment for an endometrial biopsy in 2 weeks. Orders: Orders Hepatitis B Surface Antigen Today B96.89 - Other specified bacterial agents as the cause of diseases classified elsewhere, N76.0 - Acute vaginitis Hepatitis C Antibody Today B96.89 - Other specified bacterial agents as the cause of diseases classified elsewhere, N76.0 - Acute vaginitis Syphilis Screen Today B96.89 - Other specified bacterial agents as the cause of diseases classified elsewhere, N76.0 - Acute vaginitis US pelvic and transvaginal Today B96.89 - Other specified bacterial agents as the cause of diseases classified elsewhere, N76.0 - Acute vaginitis, R10.2 - Pelvic and perineal pain Prolactin Today B96.89 - Other specified bacterial agents as the cause of diseases classified elsewhere, N76.0 - Acute vaginitis, N93.9 - Abnormal uterine and vaginal bleeding, unspecified Complete Blood Count no Diff Today B96.89 - Other specified bacterial agents as the cause of diseases classified elsewhere, N76.0 - Acute vaginitis, N93.9 - Abnormal uterine and vaginal bleeding, unspecified AMB HCG Urine Test Today Z32.02 - Encounter for test, result negative AMB Urinalysis Automated Today R10.2 - Pelvic and perineal pain Bacterial Vaginosis Panel Today B96.89 - Other specified bacterial agents as the cause of diseases classified elsewhere, N76.0 - Acute vaginitis TSH reflex Free T4 Today B96.89 - Other specified bacterial agents as the cause of diseases classified elsewhere, N76.0 - Acute vaginitis, N93.9 - Abnormal uterine and vaginal bleeding, unspecified Lutenizing Hormone Today B96.89 - Other specified bacterial agents as the cause of diseases classified elsewhere, N76.0 - Acute vaginitis, N93.9 - Abnormal uterine and vaginal bleeding, unspecified Follicle Stimulating Hormone Today B96.89 - Other specified bacterial agents as the cause of diseases classified elsewhere, N76.0 - Acute vaginitis, N93.9 - Abnormal uterine and vaginal bleeding, unspecified HCG Quantitative Today B96.89 - Other specified bacterial agents as the cause of diseases classified elsewhere, N76.0 - Acute vaginitis, N93.9 - Abnormal uterine and vaginal bleeding, unspecified MM screening mammo BI Today Z12.31 - Encounter for screening mammogram for malignant neoplasm of breast Medications: New metronidazole 500 mg PO BID 14 tabs 0RF 7 days Coding Level of Care Code New Pt Level 3 (25939) Diagnoses Pelvic pain R10.2 Bacterial vaginosis N76.0; B96.89 Abnormal uterine bleeding N93.9
[2023-09-15 15:25] VITALS: BP 110/66; BMI 49.6
== END 2023-09-15 15:55 | disposition home or self-care (01) ==
PROVIDERS: Visit Provider Obstetrics & Gynecology
DX: R10.2 Pelvic and perineal pain (principal); N76.0 Acute vaginitis; B96.89 Other specified bacterial agents as the cause of diseases classified elsewhere; N93.9 Abnormal uterine and vaginal bleeding, unspecified; Z32.02 Encounter for pregnancy test, result negative
CPT/HCPCS: 99203

== ENCOUNTER 2023-09-15 16:02 | Outpatient (REF) | payer OTHER, SELFPAY | END 2023-09-15 16:03 | disposition home or self-care (01) | LOC: HO.LNP 16:02 | PROVIDERS: Visit Provider Obstetrics & Gynecology | DX: N93.9 Abnormal uterine and vaginal bleeding, unspecified (principal); N76.0 Acute vaginitis; B96.89 Other specified bacterial agents as the cause of diseases classified elsewhere; R10.2 Pelvic and perineal pain | CPT/HCPCS: 0353U; 87480; 87510; 87624; 87660; 88142 ==

== ENCOUNTER 2023-09-22 08:32 | Outpatient (AMB) | payer OTHER, SELFPAY ==
--- NOTE | 2023-09-22 08:44 | MHC.OFFVIS ---
Intake Vital Signs 09/22/23 08:45 Height 5 ft Weight 257 lb 0.944 oz BMI 50.2 BP 110/62 Blood Pressure Location Rt brachial Position Sitting Pulse 66 Pulse Source Pulse Oximeter Temp 96.6 F L Temp Source Skin Pulse Oximetry (%) 97 Oxygen Delivery Method Room Air Intake Visit Reasons: Elev ESR Intake Note: New pt presents today for elevated ESR consult. C/o pain and swelling in shoulders, legs and whole body. Pain started approx 2 years ago. Has tried tylenol extra strength with no relief. States she has had a hx of elev ESR for a long time and feels as if she has not been heard by PCP when it comes to the pain and swelling. Editor Managing Newspaper Required: No Accompanied by: Self / Same As Patient Allergies anesthesia Allergy (Severe, Uncoded 09/22/23 08:49) vomiting Medication List - Last Reconciled 09/22/23 by Raudel Kendrick MD albuterol sulfate 90 mcg/actuation 2 inhalations inhalation DAILY PRN 30 days albuterol sulfate 2.5 mg (3 mL) inhalation Q6H PRN 30 days bisacodyl (Dulcolax (bisacodyl)) 10 mg orally 2 TABS QHS AND 1 QAM; CPAP (CPAP Machine/Device) As directed docusate sodium 100 mg PO BID PRN famotidine 40 mg PO BEDTIME PRN 30 days lyfakowqirw-xaarzpuje-newimyij 200-62.5-25 mcg (Trelegy Ellipta) 1 inh inhalation DAILY 30 days furosemide (Lasix) 10 mg (1/2 x 20 mg) PO DAILY PRN 90 days hydroxychloroquine (Plaquenil) 200 mg PO DAILY 30 days linaclotide (Linzess) 72 mcg PO QAM melatonin 5 mg PO BEDTIME PRN 30 days metronidazole 500 mg PO BID 7 days nebulizers As directed omeprazole 40 mg PO DAILY oxybutynin chloride ER 15 mg PO DAILY roflumilast (Daliresp) 500 mcg PO DAILY Symbicort 160-4.5 mcg/actuation (budesonide-formoterol) 2 puffs inhalation BID 30 days NS tiotropium bromide 2.5 mcg/actuation (Spiriva Respimat) 2 puffs inhalation DAILY 90 days tramadol 50 mg PO Q6H PRN HPI HPI Comments History of Present Illness Details This is a 48-year-old female who presents for evaluation of elevated ESR. Patient stated that she has had diffuse body pain for about 2 years. She has pain everywhere, in her hands, legs, ankles, back. Has generalized morning stiffness lasting about 4 hours. Lately she has been noticing swelling of her legs. She is prescribed Lasix, she does not feel it is helping. She denies any skin rashes, fevers or weight loss. She mentions history of superficial thrombophlebitis but denies any history of DVT or any other blood clot that needed a blood thinner. She is unaware of any family history of autoimmune rheumatic disease. [facility] Medical History History of endometriosis Lymphedema Chest pain Asthma-COPD overlap syndrome Epigastric pain Pneumonia Asthma BRENNA (obstructive sleep apnea) Dyspnea Pneumonitis Paget disease of bone Vitamin D deficiency Elevated alkaline phosphatase level Abdominal adhesions Tubal ligation evaluation Surgical History H/O cervical polypectomy History of appendectomy H/O lithotripsy History of renal stent Family History Father HTN (hypertension), benign BRENNA (obstructive sleep apnea) Mother HTN (hypertension), benign Osteoporosis Paternal Grandmother Stomach cancer Other Family history of arthritis Social History Household Members: Children Alcohol intake: current Alcohol intake frequency: holidays/special occasions only Alcohol type: wine Patient Tobacco Use Status: Never used Tobacco e-Cigarette/Vaping Use: Never Used Second Hand Smoke Exposure: No Current occupational status: employed Current occupation: [employer] Cognitive needs: No Hearing needs: No Vision needs: No Female Reproductive History Menstrual Total pregnancies: 3 Number of Living Children: 3 Ab induced: 0 Ab spontaneous: 0 Review of Systems Const Reports headache(s) and Reports weight gain Eyes Details: redness Reports eye pain ENT Reports dysphagia, Reports headache(s), Reports tinnitus and Reports sore throat Card Reports chest pain and Reports dyspnea Resp Reports cough, Reports dyspnea and Reports wheezing GI Reports constipation, Reports dysphagia, Reports heartburn and Reports nausea Musc Reports myalgias, Reports arthralgias, Reports joint swelling and Reports stiffness Skin/Breast Reports alopecia, Reports rash and Reports unusual bruising Neuro Reports headache(s) and Reports memory loss Psych Reports abnormal sleep pattern, Reports anxiety, Reports depression and Reports memory loss Endo Reports polydipsia Aller/Immun Reports wheezing Physical Exam Vital Signs: Last Vital Signs Temp 96.6 F L 09/22/23 08:45 Pulse 66 09/22/23 08:45 BP 110/62 09/22/23 08:45 Pulse Ox 97 09/22/23 08:45 Oxygen Delivery Method Room Air 09/22/23 08:45 BMI result Body Mass Index 50.2 Const General: cooperative and healthy appearing Nutritional Appearance: obese morbidly obese Orientation/consciousness: patient oriented x3 Limitations: no limitations HEENT Head: Yes normocephalic and Yes atraumatic Mouth: moist mucous membranes Resp Effort & Inspection: normal respiratory effort and able to speak in complete sentences Auscultation: clear to auscultation bilaterally Cardio Rate: regular rate Neuro General: patient oriented x3 Extrem Other: No swollen joints Multiple myofascial tender points Significant nonpitting edema of lower extremities Assessment & Plan Assessment & Plan (1) Elevated sed rate: Code(s): R70.0 - Elevated erythrocyte sedimentation rate Plan: This is a 48-year-old female who presents for evaluation of elevated sed rate and diffuse pain. Upon evaluation I do not see any evidence of an autoimmune rheumatic disease. She has diffuse widespread pains. Labs showed elevated ESR and positive HERNESTO 1:40 homogeneous and 1:40 dfs when repeated. With negative sub serologies. Previous bone scan did not show signs of inflammatory arthritis. A follow-up as needed (2) HERNESTO positive: Code(s): R76.8 - Other specified abnormal immunological findings in serum Plan: As above Plan I spent 47 minutes reviewing patient's chart, evaluating patient, counseling patient and documenting in the chart Coding Level of Care Code New Pt Level 4 (53468) Diagnoses Elevated sed rate R70.0 HERNESTO positive R76.8
[2023-09-22 08:45] VITALS: BP 110/62; PULSE 66; TEMP 35.9; O2SAT 97; BMI 50.2
== END 2023-09-22 09:28 | disposition home or self-care (01) ==
PROVIDERS: PCP Nurse Practitioner Family; Visit Provider Student in an Organized Health Care Education/Training Program
DX: R70.0 Elevated erythrocyte sedimentation rate (principal); R76.8 Other specified abnormal immunological findings in serum
CPT/HCPCS: 99204

== ENCOUNTER 2023-09-22 12:30 | Outpatient (REF) | payer OTHER, SELFPAY ==
--- NOTE | ~2023-09-22 | US_ITS ---
EXAMINATION: US PELVIS CLINICAL INFORMATION: Pelvic and perineal pain LMP: Irregular COMPARISON: Pelvic ultrasound 12/15/2018 TECHNIQUE: Ultrasound of the pelvis is performed using both transabdominal and transvaginal transducers along with Doppler. Transvaginal imaging is performed due to inadequate visualization transabdominally. Markedly technically limited due to patient body habitus and uterine size. FINDINGS: Uterus: The uterus is anteverted and measures 11.2 x 3.9 x 5.3 cm. 1.5 x 1.6 x 1.7 cm subserosal fibroid is seen in the posterior body of the uterus. 0.8 x 0.5 x 0.6 cm intramural fundal fibroid is seen. The endometrial thickness is 0.4 mm. Adnexa: Both ovaries are visualized. There is normal color flow to the adnexa. There is no ovarian torsion. There is no pelvic ascites or fluid collection. Right ovary measures 3.1 x 1.5 x 2.5 cm. Volume 6.2 mL. Left ovary measures 3.0 x 0.9 x 1.9 cm. Volume 2.6 mL. US/US pelvic and transvaginal IMPRESSION: 1. Two uterine fibroids. 2. Normal ovaries.
== END 2023-09-22 12:31 | disposition home or self-care (01) ==
LOC: HO.HMGCX 12:30
PROVIDERS: PCP Nurse Practitioner Family; Visit Provider Obstetrics & Gynecology
DX: R10.2 Pelvic and perineal pain (principal); N76.0 Acute vaginitis; B96.89 Other specified bacterial agents as the cause of diseases classified elsewhere
CPT/HCPCS: 76830; 76856; 99202

== ENCOUNTER 2023-10-19 12:10 | Outpatient (REF) | payer OTHER, SELFPAY ==
--- NOTE | ~2023-10-19 | MM_ITS ---
EXAMINATION: MM SCREENING DIGITAL BREAST TOMOSYNTHESIS, BILATERAL CLINICAL INFORMATION: Screening. Asymptomatic. COMPARISON: Mammography: This is a baseline mammogram. TECHNIQUE: Digital breast tomosynthesis is performed in both the craniocaudal and mediolateral oblique views along with computer-aided detection (CAD). Synthesized 2D images are generated from the tomosynthesis. FINDINGS: There are scattered areas of fibroglandular density (ACR BI-RADS breast composition Category b). There are no significant masses, abnormal calcifications, or other abnormalities. MM/MM tomosynthesis screening BI IMPRESSION: No mammographic evidence of malignancy. ASSESSMENT: BI-RADS BI-RADS 1 - Negative RECOMMENDATION: Routine annual mammography screening. 1 year F/U This examination should not preclude the clinical evaluation of a suspicious palpable abnormality. This patient's information was entered into a reminder system with a target due date for their next mammogram.
== END 2023-10-19 12:11 | disposition home or self-care (01) ==
LOC: HO.MAMMO 12:10
PROVIDERS: PCP Nurse Practitioner Family; Visit Provider Obstetrics & Gynecology
DX: Z12.31 Encounter for screening mammogram for malignant neoplasm of breast (principal)
CPT/HCPCS: 77063; 77067

== ENCOUNTER → 2023-10-19 12:15 | Outpatient (BNV) | payer OTHER, SELFPAY | PROVIDERS: PCP Nurse Practitioner Family; Visit Provider Radiology Diagnostic Radiology | DX: Z12.31 Encounter for screening mammogram for malignant neoplasm of breast (principal) | CPT/HCPCS: 77063; 77067 ==

== ENCOUNTER 2023-10-28 13:45 | Outpatient (AMB) | payer OTHER, SELFPAY ==
[2023-10-28 13:56] VITALS: BP 120/76; BMI 50.2
--- NOTE | 2023-10-28 13:56 | MHC.OFFVIS ---
Intake Vital Signs 10/28/23 13:56 Height 5 ft Weight 257 lb BMI 50.2 BP 120/76 Intake Visit Reasons: EMB/Ultrasound Results Lion Tamer Required: No Information Interpreted: non-clinical & clinical Risk Manager: Risk Manager Present (Sheila) Allergies anesthesia Allergy (Severe, Uncoded 10/28/23 13:56) vomiting Is last menstrual period known: Yes Last menstrual period: 07/11/20 Post menopausal: No Patient : No Do you need a note to return to daycare/school/sports/work: Yes (for surgery on wednesday) HPI HPI Comments History of Present Illness Details Presenting for EMB [facility] Medical History History of endometriosis Lymphedema Chest pain Asthma-COPD overlap syndrome Epigastric pain Pneumonia Asthma BRENNA (obstructive sleep apnea) Dyspnea Pneumonitis Paget disease of bone Vitamin D deficiency Elevated alkaline phosphatase level Abdominal adhesions Tubal ligation evaluation Surgical History H/O cervical polypectomy History of appendectomy H/O lithotripsy History of renal stent Family History Father HTN (hypertension), benign BRENNA (obstructive sleep apnea) Mother HTN (hypertension), benign Osteoporosis Paternal Grandmother Stomach cancer Other Family history of arthritis Social History Household Members: Children Alcohol intake: current Alcohol intake frequency: holidays/special occasions only Alcohol type: wine Patient Tobacco Use Status: Never used Tobacco e-Cigarette/Vaping Use: Never Used Second Hand Smoke Exposure: No Current occupational status: employed Current occupation: N Cognitive needs: No Hearing needs: No Vision needs: No Female Reproductive History Menstrual Date of last menstrual period: 07/11/20 control method: none Total pregnancies: 2 Full term: 2 Review of Systems Card Reports as per HPI and Reports no additional complaints Resp Reports as per HPI and Reports no additional complaints GI Reports as per HPI and Reports no additional complaints Reports as per HPI Physical Exam Vital Signs: Last Vital Signs BP 120/76 10/28/23 13:56 BMI result Body Mass Index 50.2 Const General: cooperative, healthy appearing and comfortable Resp Effort & Inspection: normal respiratory effort Auscultation: clear to auscultation bilaterally Percussion: percussion normal Cardio Palpation: normal PMI Rate: regular rate Rhythm: regular rhythm Heart sounds: no murmurs and no rubs Peripheral pulses: Peripheral pulses 2+ throughout GI Inspection: Yes normal to inspection Palpation (GI): Soft to palpation, nontender, no guarding, not rigid and No hepatosplenomegaly present Percussion: Yes normal to percussion Auscultation: normal bowel sounds Rectal Exam - Female: deferred Assessment & Plan Assessment & Plan (1) Abnormal uterine bleeding: Comment: Elevated FSH/LH Code(s): N93.9 - Abnormal uterine and vaginal bleeding, unspecified Plan: EMB attempted was aborted per patient's request because of intolerance to pain, recommended as the next step to proceed with hysteroscopy D&C possible polypectomy/myomectomy. Discussed with the patient the procedure , all benefits and risks including but not limited to inability to complete the procedure , insufficient endometrial tissue for a complete evaluation of the endometrial cavity , bleeding, infection, possible need for blood transfusion with all its risk ( HIV,syphilis, Hepatitis, anaphylaxis shock, others..), injury to bladder, rectum, possible need for laparoscopy/laparotomy or hysterectomy. The patient verbalized understanding and signed the consent. Instructions given the patient to schedule a 2 week postoperative appointment Coding Level of Care Code Est Pt Level 3 (49455) Diagnoses Abnormal uterine bleeding N93.9
== END 2023-10-28 16:20 | disposition home or self-care (01) ==
LOC: HO.HWS 13:45
PROVIDERS: PCP Nurse Practitioner Family; Visit Provider Obstetrics & Gynecology
DX: N93.9 Abnormal uterine and vaginal bleeding, unspecified (principal)
CPT/HCPCS: 99213

== ENCOUNTER → 2023-10-28 13:45 | Outpatient (BNVA) | payer OTHER, SELFPAY | PROVIDERS: PCP Nurse Practitioner Family; Visit Provider Obstetrics & Gynecology | DX: N39.3 Stress incontinence (female) (male) (principal) | CPT/HCPCS: 99212 ==

== ENCOUNTER 2023-10-29 11:00 | Outpatient (RCR) | payer OTHER, SELFPAY ==
--- NOTE | 2023-10-08 12:56 | MHC.OT.OLE ---
[address] [phone] F: [phone] Occupational Therapy Lymphedema Evaluation Patient Name: Asya Flores Diagnosis: (B)LE lipedema Date of Onset: Attending Provider: Hadley Shukla Prescribed Treatment: Follow Up Appointment: History of Current Condition: Patient is a 48 year old female who was referred by Hadley Shukla MD for (B)LE pain and swelling. Significant Medical History: COPD, Asthma, kidney stones s/p renal stent Precautions/Contraindications: complex PMH Patient Goals: To be able to wear short shorts again and dresses. Hand Dominance: Observations: Outcome Measures: Prior Level of Function and Occupation Living Situation: Patient lives with her adult daughter in a 2 level single family home. 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 Aggravating Factors: Alleviating Factors: Skin and Soft Tissue Assessment Skin and Soft Tissue: Other Comments: WFL Nerve assessment Ulnar Nerve: Median Nerve: Radial Nerve: Comments: Sensory Assessment Temperature: Light Touch: Proprioception: Vibration: Comments: Measured patient's lower extremities Edema Assessment Upper Extremity: Lower Extremity: Comments: Dexterity Assessment Dexterity: Comments: Special Tests Comments: AROM (PROM) Strength Lower Extremity Hip Flexion: Knee Flexion: Knee Extension: Ankle Dorsiflexion: Ankle Plantarflexion: Ankle Eversion: Ankle Inversion: Comments: Cervical Flexion: Extension: Lateral Flexion: Rotation: Comments: Shoulder Flexion: Extension: Abduction: Internal Rotation: External Rotation: Comments: Flexion: Extension: Abduction: Internal Rotation: External Rotation: Comments: Elbow Flexion: Extension: Forearm Pronation: Forearm Supination: Comments: Flexion: Extension: Forearm Pronation: Forearm Supination: Comments: Wrist Flexion: Extension: Ulnar Deviation: Radial Deviation: Comments: Flexion: Extension: Ulnar Deviation: Radial Deviation: Comments: Thumb Thumb CMC Flexion: Thumb MCP Flexion: Thumb IP Flexion: Radial Abduction: Palmar Abduction: Opposition: Comments: Digits Index MCP: PIP: DIP: Long MCP: PIP: DIP: Ring MCP: PIP: DIP: Small MCP: PIP: DIP: Comments: Gross Grasp: Lateral Pinch: Two-Point Pinch: Three-Jaw Martín: Comments: Patient Education Primary Language: [place] Air Conditioning Specialist Required: No Current Knowledge: Teaching Method: Education Needs Identified on Evaluation: How did patient/family demonstrate learning? Barriers to Learning: Readiness for Learning: Who was educated? Comments: Plan of Care Assessment: Patient is a 48 year old female who was referred for (B)LE pain and swelling with PMHx of COPD, Asthma, kidney stone s/p renal stent. Patient stated she noticed her symptoms about 2 years ago. 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 She lives with her adult daughter in a single family home with 2 levels. Based on the initial evaluation patient presents with (B)LE lipedema with intact skin, hypersensitivity and bruising (B'ly), the edema appears to stop around the ankles although patient stated her feet will swell at times. Her current lymph volume measurements are as follows: 384.2cm (R), 387.7cm (L) a 3.5cm difference between the extremities. Patient reported her pain as 9/10 constantly at rest and during movement. She noticed her LEs appear to swell after she walks or stands for awhile and the feel heavy. Patient stated her main goals are to be able to wear the type of clothing she would like to wear and to decrease the pain. Patient current level of function is min (A)LB self care tasks as patient presents with impaired ROM, impaired functional activity tolerance as she reports 9/10 pain, impaired strength and impaired performance during self care tasks. Due to the documented impairments it is recommended that patient received skilled occupational therapy/ lymphedema therapy in order for patient to achieve her PLOF and her stated goals. Thank you for your referral. STG Duration: 2 weeks Short Term Goals: Patient will reports 7/10 pain in LEs (B'ly) Patient will be (I) with skin care/hygiene and hydration routine in order maintain skin integrity and reduce risk of infection LTG Duration: 4 weeks Legislative Aide Goals: Patient will report 0/10 pain in LEs (B'ly) Patient will be (I) with donning/doffing compression garments Patient will be (I) with self manual lymph drainage techniques Patient will be (I) with home exercise program Frequency and Duration: The patient will be seen 4x a week for 2 weeks, decrease to 3x a week for 2 weeks Treatment Plan: Treatment Plan Comments: OT evaluation and treat Lymphedema Treatment Plan: Exercise: Stretching, strengthening, manual therapy Family/Caregiver Training Manual Lymphatic Drainage Referral for compression garment and instructions for donning/doffing Self Care Training: bandaging, skin care, self massage Skin Care Education Lymphedema Treatment Plan Comments: measure for compression garments and kaylee pants, MLD Electronically Signed By: DINA Rose/Sotero CLT Reviewed/agree with student documentation: Therapist: Please sign and return to therapist, thank you for your referral.
== END 2024-02-09 13:30 | disposition home or self-care (01) ==
LOC: HO.OT 11:00
PROVIDERS: PCP Nurse Practitioner Family; Visit Provider Hospitalist
DX: I89.0 Lymphedema, not elsewhere classified (principal)
CPT/HCPCS: 97110; 97140; 97165; 97535

== ENCOUNTER 2023-11-12 09:03 | Day surgery (SDC) | payer OTHER, SELFPAY ==
[2023-11-10 09:13] VITALS: BMI 50.2
--- NOTE | 2023-11-10 15:04 | HO.ANESPROP2 ---
Documented by User: Sherri Zapata NP 11/10/23 15:06 HPI - Anesthesia Eval Consult details Narrative: 48yo F for D&C Hysteroscopy,possible myomectomy,possible polypectomy, PMFSH Active Problems Active Problems: All Active Problems (Updated 11/10/23 @ 09:00 by Beverly Dyson, RN) HERNESTO positive (Acute) Abnormal uterine bleeding (Acute) Bacterial vaginosis (Acute) Pelvic pain (Acute) Whole body pain (Acute) Elevated sed rate (Acute) Elevated WBC count (Acute) Swelling of both lower extremities (Acute) Morbid obesity (Acute) Left foot pain (Acute) Left ankle sprain (Acute) Left ankle pain (Acute) Toe infection (Acute) Obesity (Acute) Obesity hypoventilation syndrome (Acute) Knee pain (Acute) SOB (shortness of breath) (Acute) NIDDY (non-insulin dependent diabetes mellitus in young) (Acute) UTI (urinary tract infection) (Acute) Left ankle joint deformity (Acute) Leg swelling (Acute) Glucosuria (Acute) Dysuria (Acute) Elevated alkaline phosphatase level (Acute) ADAMS (nonalcoholic steatohepatitis) (Acute) Thyromegaly (Acute) Insomnia (Acute) Chronic idiopathic constipation (Acute) GERD (gastroesophageal reflux disease) (Acute) Cervical polyp (Acute) Nephrolithiasis (Acute) Morbid obesity (Acute) Lymphedema (Acute) Chest pain (Acute) Asthma-COPD overlap syndrome (Acute) Epigastric pain (Acute) Pneumonia (Acute) Asthma (Acute) BRENNA (obstructive sleep apnea) (Acute) Dyspnea (Acute) Pneumonitis (Acute) Paget disease of bone (Acute) Vitamin D deficiency (Acute) Elevated alkaline phosphatase level (Acute) Past Medical History Medical History (Updated 11/10/23 @ 09:00 by Beverly Dyson, RN) PONV (postoperative nausea and vomiting) History of endometriosis Lymphedema Chest pain Asthma-COPD overlap syndrome Epigastric pain Pneumonia Asthma BRENNA (obstructive sleep apnea) Dyspnea Pneumonitis Paget disease of bone Vitamin D deficiency Elevated alkaline phosphatase level Abdominal adhesions Tubal ligation evaluation Family History Family History Father HTN (hypertension), benign BRENNA (obstructive sleep apnea) Mother HTN (hypertension), benign Osteoporosis Paternal Grandmother Stomach cancer Other Family history of arthritis Surgical History Surgical History H/O cervical polypectomy History of appendectomy H/O lithotripsy History of renal stent History of Problems with Anesthesia: Yes (PONV) Social History Social History Household Members: Children Alcohol intake: current Alcohol intake frequency: holidays/special occasions only Alcohol type: wine Patient Tobacco Use Status: Never used Tobacco e-Cigarette/Vaping Use: Never Used Second Hand Smoke Exposure: No Use of substances other than those prescribed or required for medical reasons: No Are you DNR?: No Advance Directives: No Advance Directives Information Provided: Yes Current occupational status: employed Current occupation: N Cognitive needs: No Hearing needs: No Vision needs: No Meds Allergies Allergy/AdvReac Type Severity Reaction Status Date / Time No Known Allergies Allergy Verified 11/10/23 09:00 Home Medications Medication Instructions Recorded Confirmed Last Taken Type oxybutynin chloride 15 mg 15 mg PO DAILY 06/19/20 11/10/23 Unknown History tablet,extended release 24 hr docusate sodium 100 mg capsule 100 mg PO BID PRN Constipation 04/13/22 11/10/23 Unknown History CPAP (CPAP Machine/Device) 08/21/22 09/22/23 Unknown History nebulizers 12/23/22 09/22/23 Unknown History roflumilast 500 mcg tablet 500 mcg PO DAILY 01/11/23 11/10/23 11/12/23 08:30 History (Rileyiressage) Exam Height,Weight and Vital Signs: Height 5 ft Weight 116.573 kg Assessment and Plan Assessment Anesthesia Assessment: Chart Reviewed Final Anesthetic Review History of Problems with Anesthesia: Yes (PONV) Documented by User: Macario Castellon MD 11/12/23 10:13 [facility] Past Medical History Medical History (Updated 11/10/23 @ 09:00 by Beverly Dyson RN) PONV (postoperative nausea and vomiting) History of endometriosis Lymphedema Chest pain Asthma-COPD overlap syndrome Epigastric pain Pneumonia Asthma BRENNA (obstructive sleep apnea) Dyspnea Pneumonitis Paget disease of bone Vitamin D deficiency Elevated alkaline phosphatase level Abdominal adhesions Tubal ligation evaluation Patient : No Family History Family History Father HTN (hypertension), benign BRENNA (obstructive sleep apnea) Mother HTN (hypertension), benign Osteoporosis Paternal Grandmother Stomach cancer Other Family history of arthritis Family history of problems with anesthesia: No Surgical History Surgical History H/O cervical polypectomy History of appendectomy H/O lithotripsy History of renal stent History of Problems with Anesthesia: No (PONV) Social History Social History Household Members: Children Alcohol intake: current Alcohol intake frequency: holidays/special occasions only Alcohol type: wine Patient Tobacco Use Status: Never used Tobacco e-Cigarette/Vaping Use: Never Used Second Hand Smoke Exposure: No Use of substances other than those prescribed or required for medical reasons: No Are you DNR?: No Advance Directives: No Advance Directives Information Provided: Yes Current occupational status: employed Current occupation: [employer] Cognitive needs: No Hearing needs: No Vision needs: No Meds Allergies Allergy/AdvReac Type Severity Reaction Status Date / Time No Known Allergies Allergy Verified 11/10/23 09:00 Home Medications Medication Instructions Recorded Confirmed Last Taken Type oxybutynin chloride 15 mg 15 mg PO DAILY 06/19/20 11/10/23 Unknown History tablet,extended release 24 hr docusate sodium 100 mg capsule 100 mg PO BID PRN Constipation 04/13/22 11/10/23 Unknown History CPAP (CPAP Machine/Device) 08/21/22 09/22/23 Unknown History nebulizers 12/23/22 09/22/23 Unknown History roflumilast 500 mcg tablet 500 mcg PO DAILY 01/11/23 11/10/23 11/12/23 08:30 History (Daliresp) Exam Airway Mallampati Class: II TM Dist: <=3cm Neck ROM: Full Loose/Missing/Broken Teeth: No Heart: ok Lungs: ok Assessment and Plan Assessment Anesthesia Assessment: Anesthesia Plan Discussed Final Anesthetic Review Family History of Problems with Anesthesia: No History of Problems with Anesthesia: No (PONV) NPO: Yes ASA Class: III Final Preanesthetic Review: No Changes in Pt Med Stat, Meds/Allgs Chart Reviewed, Consent Obtained/Reviewed and Anes Risks/Benef Reviewed Patient Risk: Intermediate Procedure Risk: Low Anesthetic Plan Anesthetic Plan: GA and Agree w/ Assess. and Plan Disposition: Standard PACU
[2023-11-12] VITALS (7 sets, daily range): BP systolic 107–130; BP diastolic 60–75; PULSE 48–63; RESP 16–18; TEMP 36.1–36.4; O2SAT 95–98
[2023-11-12 09:17] LABS: UPreg QC Valid YES; Urine Pregnancy NEGATIVE (NEGATIVE)
[2023-11-12] MEDS: Scopolamine 1.5 MG PATCH.TD.3 TRANSDERMA (09:49)
[2023-11-12] MEDS: Lactated Ringers 1,000 ML 100 ML IVCONT (09:58)
--- NOTE | 2023-11-12 10:02 | MHC.SHP ---
Pre-Procedural Eval Section A - 24 Hr Update-Section A only Date of Service: 11/12/23 The patient is an INPATIENT: No Changes since office visit: No Cold of Flu in the past 2 weeks, No New Medical Problems, No Changes in Medication and No Patient answered all questions The patient has been examined within 24 hours of the surgical procedure. The History & Physical has been completed within 30 days and I have reviewed it.: Yes Section B - Complete if H&P > 30 days Chief Complaint: Abnormal uterine and vaginal bleeding, unspecified Allergies: Allergies Allergy/AdvReac Type Severity Reaction Status Date / Time No Known Allergies Allergy Verified 11/10/23 09:00 Plan Diagnosis/Plan: Unchanged I have reviewed the history and physical and performed a pertinent physical examination on my patient. No changes have occurred unless specified. Time Spent With Patient Time: Total time managing care of this patient today ____ minutes.
--- NOTE | 2023-11-12 11:06 | P.BOP_ITS ---
Brief Operative Note Date of Service: 11/12/23 Pre-op diagnosis: Abnormal uterine bleeding Post-op diagnosis: same (Multiple endometrial polyps) Procedure: Hysteroscopy D&C, Polypectomies Surgeon: Chcoo Franz MD Anesthesia: GLMA Was an Music Sound Light Technician used for this Procedure?: No Estimated blood loss (mL): 0 Pathology: other (Endometrial Scrapping. Polyps) Condition: stable Disposition: PACU
--- NOTE | 2023-11-12 11:07 | P.OP_ITS ---
Operative Note Operative Note Date of Service: 11/12/23 Narrative: Preop Diagnosis: Abnormal uterine bleeding Operation: Diagnostic Hysteroscopy, Dilataion & Curettage and polypectomies Post Op Diagnosis: Endometrial Polyp QBL: Minimal Anesthesia: GLMA Surgeon: Choco Franz MD Telescope Repairer: None Complication: None Pathology: Endometrial Scrapings, Endometrial polyp Procedure: The patient was put in the dorsal lithotomy position, scrubbed, and draped in the usual manner. A sterile speculum was inserted in the patient's vagina. The anterior lip of the cervix was grasped with a single tooth tenaculum. The cervix was dilated up to 5 mm, then the scope was inserted in the patient's uterus. Inspection revealed multiple endometrial polyps. The Myosure Reach device was used; it was introduced through the operative channel and polypectomies done with no complications. The scope was then taken out from the uterine cavity, sharp curettings was carried on with minimal to moderate amount of tissues retrieved. At the end of the procedure, all instruments were taken out of the patient uterine and vaginal cavity. The single tooth tenaculum was removed and homeostasis was assured using pressure,. The patient tolerated the procedure well and was transferred to the PACU in a stable condition.
[2023-11-12] MEDS: oxyCODONE HCl Immed Release 5 MG TABLET PO (11:36)
[2023-11-12] MEDS: Acetaminophen 325 MG TABLET 650 MG PO (11:36)
== END 2023-11-12 12:14 | disposition home or self-care (01) ==
PROVIDERS: PCP Nurse Practitioner Family; Visit Provider Obstetrics & Gynecology
PROC: 0UDB8ZZ Extraction of Endometrium, Via Natural or Artificial Opening Endoscopic (ICD-10-PCS; CPT 58558; principal; 2023-11-12 11:30)
DX: N93.9 Abnormal uterine and vaginal bleeding, unspecified (principal); N84.0 Polyp of corpus uteri; Z98.51 Tubal ligation status; M88.9 Osteitis deformans of unspecified bone; I89.0 Lymphedema, not elsewhere classified; G47.33 Obstructive sleep apnea (adult) (pediatric); J45.909 Unspecified asthma, uncomplicated; E55.9 Vitamin D deficiency, unspecified; R74.8 Abnormal levels of other serum enzymes; Z79.899 Other long term (current) drug therapy; Z99.89 Dependence on other enabling machines and devices; Z88.8 Allergy status to other drugs, medicaments and biological substances; Z98.890 Other specified postprocedural states
CPT/HCPCS: 58558; 81025; 88305; J1885; J2405; J2704; J3010

== ENCOUNTER → 2023-11-12 09:03 | Outpatient (BNV) | payer OTHER, SELFPAY | PROVIDERS: PCP Nurse Practitioner Family; Visit Provider Obstetrics & Gynecology | DX: N93.9 Abnormal uterine and vaginal bleeding, unspecified (principal); N84.1 Polyp of cervix uteri | CPT/HCPCS: 58558 ==

== ENCOUNTER 2023-11-17 15:03 | Outpatient (AMB) | payer OTHER, SELFPAY ==
[2023-11-17 15:19] VITALS: BP 122/74; BMI 50.2
--- NOTE | 2023-11-17 15:19 | MHC.OFFVIS ---
Intake Vital Signs 11/17/23 15:19 Height 5 ft Weight 257 lb BMI 50.2 BP 122/74 Intake Visit Reasons: vaginal bleeding Allergies No Known Allergies Allergy (Verified 11/10/23 09:00) HPI HPI Comments History of Present Illness Details Presenting day 5 post hysteroscopy D&C/ polypectomy complaining of pelvic cramping and vaginal bleeding and upon urination. No fever or chills, no nausea or vomiting. Good bowel movement PFSH Medical History (Updated 11/17/23 @ 15:51 by Choco Franz MD) PONV (postoperative nausea and vomiting) History of endometriosis Lymphedema Chest pain Asthma-COPD overlap syndrome Epigastric pain Pneumonia Asthma BRENNA (obstructive sleep apnea) Dyspnea Pneumonitis Paget disease of bone Vitamin D deficiency Elevated alkaline phosphatase level Abdominal adhesions Tubal ligation evaluation Surgical History H/O cervical polypectomy History of appendectomy H/O lithotripsy History of renal stent Family History Father HTN (hypertension), benign BRENNA (obstructive sleep apnea) Mother HTN (hypertension), benign Osteoporosis Paternal Grandmother Stomach cancer Other Family history of arthritis Social History Household Members: Children Alcohol intake: current Alcohol intake frequency: holidays/special occasions only Alcohol type: wine Patient Tobacco Use Status: Never used Tobacco e-Cigarette/Vaping Use: Never Used Second Hand Smoke Exposure: No Current occupational status: employed Current occupation: [employer] Cognitive needs: No Hearing needs: No Vision needs: No Physical Exam Vital Signs: Last Vital Signs BP 122/74 11/17/23 15:19 BMI result Body Mass Index 50.2 GI Inspection: Yes normal to inspection Palpation (GI): Soft to palpation, not firm and Tenderness to palpation present (GI) (Mild lower bilateral tenderness, no guarding or rebound) External Female Exam: normal external appearance Speculum Exam - Vagina: other (No blood per vagina) Speculum Exam - Cervix: normal appearance of the cervix Bimanual exam- vagina & uterus: cervical motion tenderness and Uterine tenderness Bimanual Exam- Adnexa, other: tender Assessment & Plan Assessment & Plan (1) Endometritis: Comment: Post hysteroscopy D&C / polypectomy Code(s): N71.9 - Inflammatory disease of uterus, unspecified Plan: Urine culture sent , GC and chlamydia collected. Will treat with ceftriaxone 500 mg IM x1, doxycycline 100 mg p.o. b.i.d. and Flagyl 500 mg p.o. b.i.d. for 14 days. Instructions given the patient to call in case of persistence or worsening of her pain, fever above 100.4, nausea or vomiting or heavy vaginal bleeding and schedule a follow-up appointment in 1 week Orders: Orders AMB Ceftriaxone Injection Today N71.9 - Inflammatory disease of uterus, unspecified Medications: New metronidazole 500 mg PO BID 14 days 28 tabs 0RF ceftriaxone 500 mg IM ONCE 1 ea 0RF Endometritis N71.9 - Inflammatory disease of uterus, unspecified doxycycline hyclate 100 mg PO BID 14 days 28 caps 0RF Coding Level of Care Code Est Pt Level 3 (53061) Diagnoses Endometritis N71.9
== END 2023-11-17 16:32 ==
LOC: HO.HWS 15:05
PROVIDERS: PCP Nurse Practitioner Family; Visit Provider Obstetrics & Gynecology
DX: N71.9 Inflammatory disease of uterus, unspecified (principal)
CPT/HCPCS: 99213

== ENCOUNTER 2023-11-17 15:03 | Outpatient (REF) | payer OTHER, SELFPAY ==
[2023-11-18 02:30] LABS: CT PCR NOT DETECTED (Not Detect.); NG PCR NOT DETECTED (Not Detect.)
== END 2023-11-17 15:04 | disposition home or self-care (01) ==
LOC: HO.LNP 15:03
PROVIDERS: PCP Nurse Practitioner Family; Visit Provider Obstetrics & Gynecology
DX: R10.2 Pelvic and perineal pain (principal); N71.9 Inflammatory disease of uterus, unspecified
CPT/HCPCS: 0353U; 87086; 96372; 99212; J0696

== ENCOUNTER 2023-11-24 12:29 | Outpatient (AMB) | payer OTHER, SELFPAY ==
[2023-11-24 12:30] VITALS: BP 114/82; BMI 50.2
--- NOTE | 2023-11-24 12:30 | A.OFFVIS_ITS ---
Intake Vital Signs 11/24/23 12:30 Height 5 ft Weight 257 lb BMI 50.2 BP 114/82 Intake Visit Reasons: post op Allergies No Known Allergies Allergy (Verified 11/10/23 09:00) HPI HPI Comments History of Present Illness Details The patient is presenting post hysteroscopy D&C no complaints minimal vaginal bleeding no feverishness chills or abdominal pain. The pathology showed the following: A. Endometrium, curettage: Benign inactive to weakly proliferative endometrium, markedly fragmented, and fragments of benign endocervical glandular and squamous epithelium; no atypia or carcinoma. B. Endometrial polyp, resection: Fragments of benign endometrial polyp and fragments of benign endocervical glandular and squamous mucosa; no atypia or carcinoma Last mammogram was in 11/06 was [facility] 1 [facility] Medical History PONV (postoperative nausea and vomiting) History of endometriosis Lymphedema Chest pain Asthma-COPD overlap syndrome Epigastric pain Pneumonia Asthma BRENNA (obstructive sleep apnea) Dyspnea Pneumonitis Paget disease of bone Vitamin D deficiency Elevated alkaline phosphatase level Abdominal adhesions Tubal ligation evaluation Surgical History H/O cervical polypectomy History of appendectomy H/O lithotripsy History of renal stent Family History Father HTN (hypertension), benign BRENNA (obstructive sleep apnea) Mother HTN (hypertension), benign Osteoporosis Paternal Grandmother Stomach cancer Other Family history of arthritis Social History Household Members: Children Alcohol intake: current Alcohol intake frequency: holidays/special occasions only Alcohol type: wine Patient Tobacco Use Status: Never used Tobacco e-Cigarette/Vaping Use: Never Used Second Hand Smoke Exposure: No Current occupational status: employed Current occupation: [employer] Cognitive needs: No Hearing needs: No Vision needs: No Review of Systems Const All systems reviewed & are unremarkable except as noted in HPI and below Reports as per HPI and Reports no additional complaints GI Reports no additional complaints Reports no additional complaints Physical Exam Vital Signs: Last Vital Signs BP 114/82 11/24/23 12:30 BMI result Body Mass Index 50.2 Assessment & Plan Assessment & Plan (1) Abnormal uterine bleeding: Comment: Elevated FSH/LH Proliferative endometrium Code(s): N93.9 - Abnormal uterine and vaginal bleeding, unspecified Plan: Discussed with the patient the results of the pathology of the endometrial scrapings showing proliferative endometrium. Discussed with the patient the sensitivity, specificity, positive and negative predictive value, of endometrial biopsy in detecting endometrial pathology including but not limited to endometrial hyperplasia, cancer and other pathology; in addition discussed the patient the pathology of the endometrium in post menopause is associated with an increase in the risk of endometrial hyperplasia and malignancy in patient with preferred of endometrial pathology in menopause. Recommended to the patient progesterone treatment , levo norgestrel IUD or p.o. progestins in addition to repeat endometrial biopsy every 3 months for a year. All pros and cons, risks and benefits of each were discussed with the patient. The patient decided to proceed with Provera, so a more detailed discussion was conducted with the patient re: Progesterone treatment including mechanism of action, benefits ( endometrial protection form unopposed estrogen and reduction in the risk of endometrial hyperplasia and/or cancer ...), risks (Thrombosis, mood changes, weight gain, breast soreness, ? increased breast ca, others). Provera 10 mg po qd sent to the patient's pharmacy; in addition , recommended repeat endometrial biopsy every 3 months for 1 year. Instructed the patient to call in case is vaginal bleeding bleeding recurs, schedule endometrial biopsy in 3 months. All questions answered and the patient verbalized understanding and agreed with the plan. Medications: New medroxyprogesterone (Provera) 10 mg PO DAILY 90 tabs 3RF 90 days Coding Level of Care Code Est Pt Level 3 (78432) Diagnoses Abnormal uterine bleeding N93.9
== END 2023-11-24 13:04 | disposition home or self-care (01) ==
LOC: HO.HWS 12:29
PROVIDERS: PCP Nurse Practitioner Family; Visit Provider Obstetrics & Gynecology
DX: N93.9 Abnormal uterine and vaginal bleeding, unspecified (principal)
CPT/HCPCS: 99213

== ENCOUNTER → 2023-11-24 12:29 | Outpatient (BNVA) | payer OTHER, SELFPAY | PROVIDERS: PCP Nurse Practitioner Family; Visit Provider Obstetrics & Gynecology | DX: N93.9 Abnormal uterine and vaginal bleeding, unspecified (principal) | CPT/HCPCS: 99212 ==

== ENCOUNTER 2023-12-17 13:51 | Outpatient (AMB) | payer OTHER, SELFPAY ==
[2023-12-17 13:55] VITALS: PULSE 70; O2SAT 98; BMI 46.9
--- NOTE | 2023-12-17 13:55 | A.OFFVIS_ITS ---
Intake Vital Signs 12/17/23 13:55 Height 5 ft Weight 240 lb BMI 46.9 Pulse 70 Pulse Source Pulse Oximeter Pulse Oximetry (%) 98 Oxygen Delivery Method Room Air Intake Visit Reasons: asthma: 2 month f/u Costume Mistress Required: No Allergies No Known Allergies Allergy (Verified 12/17/23 13:56) HPI HPI Comments History of Present Illness Details The patient is a 48-year-old woman previously healthy who apparently about a year ago developed significant pneumonia and pneumonitis. At that time the patient was tested for COVID and she was negative. However after that she never felt the same. She continues to have episodes of shortness of breath. Her shortness of breath episodes happen suddenly in the can be moderate to severe. She has been evaluated in the ER at [facility] multiple times. The patient has had repeat x-rays without any acute disease. Her symptoms have been very debilitating. Will do a workup at this time looking for etiologies for pneumonitis. 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 Recently did did get him a dehumidifier. In the meantime the patient also had daytime drowsiness. She has significant episodes which she wakes up at nighttime. Her Westley score is elevated 12/24. The patient will need to undergo a sleep study at this time as well. In addition to that did appears to have some degree of upper airway obstruction which could be secondary to vocal cord dysfunction that she be further addressed later on. 06/06/2021 the patient is here for a pulmonary follow-up visit. She continues to have dyspnea on exertion. Moderate severity. We did review her chest x-ray demonstrating no acute disease. Also, she did undergo pulmonary function studies which I personally be with her demonstrating significant air trapping likely from small airways disease and or bronchiolitis. Patient was supposed to undergo a CT scan of the chest but denied for some reason by her insurance company. Based on her ongoing symptoms and with a nondiagnostic chest x-ray along with abnormal pulmonary function studies I will again request for CT scan of the chest to further address the patient's symptoms. Patient also continues to have significant daytime drowsiness with an elevated Westley score 11/24. She is to undergo a sleep study and we will review it once is available. She has responded partially well to the respiratory therapy and she continues to use it regularly. Also to know her blood work demonstrating an elevated white count. The rest of the blood work were without any other significant findings. 07/28/2021 the patient is here for a pulmonary follow-up visit. She is complaining of some substernal chest discomfort and epigastric discomfort. Symptoms tend to worsen when she lays flat. She also has episodes which she wakes up short of breath. She does have significant daytime drowsiness. Her Westley score continues to be elevated 09/05. We did review her home sleep study. Her AHI was up to 18 events an hour. She has significant issues with hypoxia and also evidence of tachycardia throughout the night. I explained the findings to the patient. The patient is agreeable in starting CPAP at this time. in the meantime she does have the epigastric discomfort. It appears that may be gastritis or esophagitis due to reflux disease. Will go ahead and treat her for this at this time. If the patient is no better consider getting a barium swallow and also a cardiac evaluation. We did review her CT scan of the chest demonstrating minimal plan glass opacities at the bases suggesting the possibility of aspiration pneumonitis. In addition to that her blood work demonstrated some allergies to mold although her hypersensitivity panel was negative. Her inflammatory markers are slightly elevated. At this point the patient will start a reflux diet and start a PPI and will start CPAP therapy. We will assess her progress when she returns in 2-3 months. 10/30/2021 the patient is here for a pulm onary follow-up visit. Unfortunately the patient has not gotten her CPAP yet. It is mainly because of a long wait due to the lack of supplies through the [employer]. I did call the [employer] company in the going to try to expedite her Pap therapy as well as possible. In the meantime she is complaining of episodes of shortness of breath and also chest discomfort. She had been having a lot of these episodes and then symptoms improved and now they seem to be getting worse. She also complains of lower extremity edema feels very edematous. Her chest back discomfort is in the reproducible. Primarily on the left side. Likely musculoskeletal. Never had a history of blood clots and the patient had a D-dimer in the past for similar symptoms which was negative and reassuring. The patient did have evidence of pneumonitis on her CT scan back June. Side just in the possibility of underlying connective tissue conditions or inflammatory conditions. Therefore will request additional blood work. In the meantime will treat her for her discomfort with nonsteroidal therapy. The patient continues to have asthma symptoms and chronic bronchitis. We will maximize respiratory therapy by placing her on Trelegy. However because of her frequent exacerbations she also responding well to Daliresp 12/25/2021 the patient is here for a pulmonary follow-up visit. She is getting discouraged because she has not received her CPAP yet. Again called the [employer] to try to help facilitate the process. I am hopeful that she is going to get a machine soon. In the meantime she continues to be symptomatic with daytime drowsiness and elevated Westley score. Patient also also trying to stay active exercising and trying to cut down on over eating. However, she she has not seen the significant decrease in her weight which is discouraged in to her. Will go ahead and refer her to the weight management program. Actually, we did give her the information for her to call. The patient did start Daliresp. Appears to be helping some. Therefore will increase to the full dose of 500 mcg. Again, I did call the [employer] in order for her to start her CPAP therapy as soon as possible. She continues on the Trelegy inhaler. Appears to be affecting beneficial. Also to note we did review her blood work demonstrating a mild leukocytosis with an elevation in the sedimentation rate. I did ask her if she has any potential areas suggesting infection. And she does state that she has a toe that has a cut that has not been able to heel and does her. I did encourage her to reach out to her primary care doctor to look at this as soon as possible. 05/08/2022 the patient is here for a pulmonary follow-up visit. She finally got her CPAP machine. She is still getting used to it. The patient understands that she needs using more than 4 hours a night. I did download the machine in appears that she is trying to use it. Although, appears that she has a significant air leak likely from open her mouth using a nasal mask. Under reach out to the [employer] to see if they can help her with a full face mask or chin strap to help her minimize the air leakage. Her AHI still elevated at 8 episodes per hour likely due to the fact that she is having suggest significant air leak which is not helping with mean airway pressure to stent open the airway. Her respiratory status appears to be stable on the current respiratory medications. She is going to continue it. She is not clear if she is using the Daliresp. I did tell it that she needs to continue it for now. She is still dealing with infections over lower extremities although she will be seen podiatry soon. She does have lower extremity edema. Appears to be getting worse. I did advise her to continue with a low-sodium diet. I will give her a diuretic for 3 days to see if we can improve her volume status but she needs to understand that she cannot rely on this medication since sick potentially be harmful long-term. 08/21/2022 the patient is here for pulmon patricia follow-up visit. She has been having difficulties with her CPAP. The mask broke and she has not been able to use it. She did bring it into the office and appeared that the plastic crack. She has not gotten a new 1 as of yet. She is currently using an N20 mask. She does not like if she feels is a low to cumbersome. She rather have something smaller. I did recommend the P 10 nasal pillows. I do believe that this will be more comfortable for her. Otherwise her AHI is below 5 so is reassuring that she it is working. However, the patient has not been will to use it because of the broken mask. I was resubmit a prescription to her [employer] company in order to get the new supplies and a new mask. In the meantime she does complaint of dyspnea on exertion. She has been having increasing asthma symptoms. She has been using her rescue inhaler almost on a daily basis. She believes is because the season change in the weather and cold air. She has been on Trelegy. She does not feel like is working as well. Will go ahead and switch her over to a different inhaler, Breztri which I hope will work a little better for her without quicker time action and on more frequent administration. She is going to continue with the other medications. Will follow-up in 6 months. 12/23/2022 the patient is here for a pulm onary follow-up visit. She is still struggling with the CPAP. She is wearing the nasal mask. However, has significant air leakage therefore resulting in dry mouth and not able to tolerated. We did download the machine and appears that her AHI is down to about 3.5. The patient was provided with F 30 small mask in order for her to tolerate a fullface mask and avoid the air leak is through the mouth. The patient understands that she does use it every night for 4 hours so she can get the best effect specially since she is still very tired with an elevated Westley score of 11/24. The patient is also complaining of significant lower extremity edema. She is trying to walk and exercise. She is trying to minimize salt intake. I will go ahead and send her additional diuretics at least 3-5 days. However, it appears to be more myxedema since is nonpitting. The patient should follow-up with her primary care doctor. I did request that she can call her primary care doctor's office to make an appointment to be further evaluated for the possibility of myxedema. She continues her respiratory medications with good effect. She has not required any prednisone or rescue inhaler. Will continue with current respiratory regimen at this time. 09/09/2023 the patient is here for a pu lmonary follow-up visit. The patient is not feeling well at all. Still has significant chest pain, but overall better on the current therapy. Her shortness of breath is also better. Her lower extremity is worse, but appears to be more lymphaedema. The patient is out of her diuretic. At this point the diuretics will be helpful just to get some volume off her and hopefully this will allow her to feel better. She may also have either a inflammatory arthritis or need to consider fibromyalgia as a possibility. She did have an elevated HERNESTO in the past. Will go ahead and repeat that. The meantime will try some Plaquenil to see if this helps her. Will just do a for a month. The patient may benefit from a Rheumatology consultation to further address her symptoms if her pulmonary evaluation is reassuring. 12/17/2023 the patient is here for pulmonary follow-up visit. The patient is feeling little better. She did go to the lymphedema clinic and she found it very helpful. She is frustrated with diagnosis but she is trying to make things better for herself. The patient did take some diuretics as needed. However it does make her feel tired and weak and therefore she does not like to take it much. the patient has been using her CPAP for the last 4 days. She is found it affecting beneficial. I did download the data and appears that her AHI is below one which is reassuring. Although right now she has no longer active from the [employer] standpoint because she has not used in a while. She will need another sleep study in order to get activated again. She does have significant daytime drowsiness and significant lower extremity edema specially she does not use CPAP. Her Westley score when she was not using the CPAP was up to 12/24. Therefore, now that she is using CPAP she should start feeling better. Will go ahead and repeat her sleep study in order for her to go to get active with the [employer] and be able to get supplies and avoid using equipment that is contaminated. [facility] Medical History PONV (postoperative nausea and vomiting) History of endometriosis Lymphedema Chest pain Asthma-COPD overlap syndrome Epigastric pain Pneumonia Asthma BRENNA (obstructive sleep apnea) Dyspnea Pneumonitis Paget disease of bone Vitamin D deficiency Elevated alkaline phosphatase level Abdominal adhesions Tubal ligation evaluation Surgical History H/O cervical polypectomy History of appendectomy H/O lithotripsy History of renal stent Family History Father HTN (hypertension), benign BRENNA (obstructive sleep apnea) Mother HTN (hypertension), benign Osteoporosis Paternal Grandmother Stomach cancer Other Family history of arthritis Social History Household Members: Children Alcohol intake: current Alcohol intake frequency: holidays/special occasions only Alcohol type: wine Patient Tobacco Use Status: Never used Tobacco e-Cigarette/Vaping Use: Never Used Second Hand Smoke Exposure: No Current occupational status: employed Current occupation: N Cognitive needs: No Hearing needs: No Vision needs: No Review of Systems Const Reports daytime sleepiness, Reports difficulty sleeping and Denies night sweats ENT Reports Normal hearing present, Denies change in voice, Denies lip swelling, Denies mouth pain, Reports nasal congestion, Reports nasal discharge and Denies tongue swelling Card Reports chest pain, Reports leg edema and Reports dyspnea Resp Reports chest congestion, Reports cough, Reports dyspnea, Denies stridor and Denies wheezing GI Reports abdominal pain Musc Denies no additional complaints Neuro Reports Normal hearing present, Denies Neuro-related abnormal movements and Denies Abnormal speech present Psych Denies no additional complaints David/Lymph Denies easy bleeding and Denies lymphadenopathy Aller/Immun Denies lip swelling, Denies tongue swelling and Denies wheezing Physical Exam Vital Signs: Last Vital Signs Pulse 70 12/17/23 13:55 Pulse Ox 98 12/17/23 13:55 Oxygen Delivery Method Room Air 12/17/23 13:55 BMI result Body Mass Index 46.9 Const General: alert Neck Neck: Yes normal visual inspection, Yes full ROM and Yes no lymphadenopathy Chest Chest palpation & inspection: normal inspection of the chest Resp Effort & Inspection: normal respiratory effort Auscultation: diminished lung sounds Cardio Rate: regular rate Rhythm: regular rhythm Heart sounds: S1 normal heart sound present and S2 normal heart sound present General: Yes no CVA tenderness Back/Spine/Pelvis Back: no CVA tenderness Neuro Cranial nerves: Yes Normal hearing present Speech: No Abnormal speech present Extrem General: Yes edema (non pitting) Assessment & Plan Assessment & Plan (1) Asthma: Code(s): J45.909 - Unspecified asthma, uncomplicated Qualifiers: Asthma complication type: uncomplicated Asthma persistence: persistent Asthma severity: moderate Qualified Code(s): J45.40 - Moderate persistent asthma, uncomplicated (2) BRENNA (obstructive sleep apnea): Code(s): G47.33 - Obstructive sleep apnea (adult) (pediatric) (3) Dyspnea: Code(s): R06.00 - Dyspnea, unspecified Qualifiers: Dyspnea type: dyspnea on exertion Qualified Code(s): R06.09 - Other forms of dyspnea (4) Pneumonitis: Code(s): J18.9 - Pneumonia, unspecified organism (5) Chest pain: Code(s): R07.9 - Chest pain, unspecified Qualifiers: Chest pain type: unspecified Qualified Code(s): R07.9 - Chest pain, unspecified (6) Lymphedema: Code(s): I89.0 - Lymphedema, not elsewhere classified Plan continue CPAP, needs to use it 4 hours or more. Will try a f30 small mask. Needs a repeat Home [facility] to requalify her for APAP and to get supplies from D[facility] [employer] (Breztri was not covered) continue Daliresp 500mcg short-acting beta agonist as needed melatonin for sleep follow-up in 3-4 months Orders: Orders RT home sleep study 12/17/23 Coding Level of Care Code Est Pt Level 4 (43296) Diagnoses Moderate persistent asthma without complication J45.40 Asthma complication type: uncomplicated Asthma persistence: persistent Asthma severity: moderate BRENNA (obstructive sleep apnea) G47.33 Dyspnea on exertion R06.09 Dyspnea type: dyspnea on exertion Pneumonitis J18.9 Chest pain, unspecified type R07.9 Chest pain type: unspecified Lymphedema I89.0 Time Spent (min) 17
== END 2023-12-17 14:16 | disposition home or self-care (01) ==
PROVIDERS: PCP Nurse Practitioner Family; Visit Provider Hospitalist
DX: J45.40 Moderate persistent asthma, uncomplicated (principal); G47.33 Obstructive sleep apnea (adult) (pediatric); R06.09 Other forms of dyspnea; J18.9 Pneumonia, unspecified organism; R07.9 Chest pain, unspecified; I89.0 Lymphedema, not elsewhere classified
CPT/HCPCS: 99214

== ENCOUNTER → 2023-12-17 13:51 | Outpatient (BNVA) | payer OTHER, SELFPAY | PROVIDERS: PCP Nurse Practitioner Family; Visit Provider Hospitalist | DX: G47.33 Obstructive sleep apnea (adult) (pediatric) (principal); J45.40 Moderate persistent asthma, uncomplicated; J18.9 Pneumonia, unspecified organism; R06.09 Other forms of dyspnea; R07.9 Chest pain, unspecified; I89.0 Lymphedema, not elsewhere classified | CPT/HCPCS: 99212 ==

== ENCOUNTER 2024-01-13 09:42 | Outpatient (AMB) | payer OTHER, SELFPAY ==
[2024-01-13 09:46] VITALS: PULSE 61; O2SAT 97; BMI 46.9
--- NOTE | 2024-01-13 09:46 | A.OFFVIS_ITS ---
Vital Signs 01/13/24 09:46 Height 5 ft Weight 240 lb BMI 46.9 Pulse 61 Pulse Source Pulse Oximeter Pulse Oximetry (%) 97 Oxygen Delivery Method Room Air Intake Visit Reasons: follow up for med refills Straight Line Press Setter Required: No Allergies No Known Allergies Allergy (Verified 01/13/24 09:47) HPI Comments Details: The patient is a 48-year-old woman previously healthy who apparently about a year ago developed significant pneumonia and pneumonitis. At that time the patient was tested for COVID and she was negative. However after that she never felt the same. She continues to have episodes of shortness of breath. Her shortness of breath episodes happen suddenly in the can be moderate to severe. She has been evaluated in the ER at [facility] multiple times. The patient has had repeat x-rays without any acute disease. Her symptoms have been very debilitating. Will do a workup at this time looking for etiologies for pneumonitis. 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 Recently did did get him a dehumidifier. In the meantime the patient also had daytime drowsiness. She has significant episodes which she wakes up at nighttime. Her Lynch score is elevated 12/24. The patient will need to undergo a sleep study at this time as well. In addition to that did appears to have some degree of upper airway obstruction which could be secondary to vocal cord dysfunction that she be further addressed later on. 12/23/2022 the patient is here for a pulmonary follow-up visit. She is still st ruggling with the CPAP. She is wearing the nasal mask. However, has significant air leakage therefore resulting in dry mouth and not able to tolerated. We did download the machine and appears that her AHI is down to about 3.5. The patient was provided with F 30 small mask in order for her to tolerate a fullface mask and avoid the air leak is through the mouth. The patient understands that she does use it every night for 4 hours so she can get the best effect specially since she is still very tired with an elevated Lynch score of 11/24. The patient is also complaining of significant lower extremity edema. She is trying to walk and exercise. She is trying to minimize salt intake. I will go ahead and send her additional diuretics at least 3-5 days. However, it appears to be more myxedema since is nonpitting. The patient should follow-up with her primary care doctor. I did request that she can call her primary care doctor's office to make an appointment to be further evaluated for the possibility of myxedema. She continues her respiratory medications with good effect. She has not required any prednisone or rescue inhaler. Will continue with current respiratory regimen at this time. 09/09/2023 the patient is here for a pulmonary follow-up visit. The patient is not feeling well at all. Still has significant chest pain, but overall better on the current therapy. Her shortness of breath is also better. Her lower extremity is worse, but appears to be more lymphaedema. The patient is out of her diuretic. At this point the diuretics will be helpful just to get some volume off her and hopefully this will allow her to feel better. She may also have either a inflammatory arthritis or need to consider fibromyalgia as a possibility. She did have an elevated HERNESTO in the past. Will go ahead and repeat that. The meantime will try some Plaquenil to see if this helps her. Will just do a for a month. The patient may benefit from a Rheumatology consultation to further address her symptoms if her pulmonary evaluation is reassuring. 12/17/2023 the patient is here for pulmonary follow-up visit. The patient is feeling little better. She did go to the lymphedema clinic and she found it very helpful. She is frustrated with diagnosis but she is trying to make things better for herself. The patient did take some diuretics as needed. However it does make her feel tired and weak and therefore she does not like to take it much. the patient has been using her CPAP for the last 4 days. She is found it affecting beneficial. I did download the data and appears that her AHI is below one which is reassuring. Although right now she has no longer active from the [employer] standpoint because she has not used in a while. She will need another sleep study in order to get activated again. She does have significant daytime drowsiness and significant lower extremity edema specially she does not use CPAP. Her Lynch score when she was not using the CPAP was up to 09/05. Therefore, now that she is using CPAP she should start feeling better. Will go ahead and repeat her sleep study in order for her to go to get active with the [employer] and be able to get supplies and avoid using equipment that is contaminated. 01/13/2024 the patient is here for pulmonary follow-up visit. The patient overall been doing well. She has been using the CPAP. The CPAP therapy has been affecting beneficial. She does try to use it more than 4 hours a night. Some nights she still has a hard time because she has insomnia. I did explain to her that she needs to use the 4 hours to qualify. Her AHI is below 5 which is reassuring. In addition to that we did talk about her dietary indiscretions. She needs to make sure she maintains a low-sodium diet because lymphedema. Will go ahead and keep her on the Lasix although she will need to have blood work today and also in 3 months' time when she comes back. Will hold off on the Plaquenil explained to her that has adverse effects and I do not believe she needs it. She continue with current respiratory therapy. Will follow-up in 3 months. [facility] Medical History (Updated 01/13/24 @ 10:00 by Hadley Shukla MD) Anemia PONV (postoperative nausea and vomiting) History of endometriosis Lymphedema Chest pain Asthma-COPD overlap syndrome Epigastric pain Pneumonia Asthma BRENNA (obstructive sleep apnea) Dyspnea Pneumonitis Paget disease of bone Vitamin D deficiency Elevated alkaline phosphatase level Abdominal adhesions Tubal ligation evaluation Surgical History H/O cervical polypectomy History of appendectomy H/O lithotripsy History of renal stent Family History Father HTN (hypertension), benign BRENNA (obstructive sleep apnea) Mother HTN (hypertension), benign Osteoporosis Paternal Grandmother Stomach cancer Other Family history of arthritis Social History Household Members: Children Alcohol intake: current Alcohol intake frequency: holidays/special occasions only Alcohol type: wine Patient Tobacco Use Status: Never used Tobacco e-Cigarette/Vaping Use: Never Used Second Hand Smoke Exposure: No Current occupational status: employed Current occupation: [employer] Cognitive needs: No Hearing needs: No Vision needs: No Review of Systems Const Reports difficulty sleeping and Denies night sweats ENT Reports Normal hearing present, Denies change in voice, Denies lip swelling, Denies mouth pain, Reports nasal congestion, Reports nasal discharge and Denies tongue swelling Card Reports chest pain, Reports leg edema and Reports dyspnea Resp Reports chest congestion, Reports cough, Reports dyspnea, Denies stridor and Denies wheezing GI Reports abdominal pain Musc Denies no additional complaints Neuro Reports Normal hearing present, Denies Neuro-related abnormal movements and Denies Abnormal speech present Psych Denies no additional complaints David/Lymph Denies easy bleeding and Denies lymphadenopathy Aller/Immun Denies lip swelling, Denies tongue swelling and Denies wheezing Physical Exam Vital Signs: Last Vital Signs Pulse 61 01/13/24 09:46 Pulse Ox 97 01/13/24 09:46 Oxygen Delivery Method Room Air 01/13/24 09:46 BMI result Body Mass Index 46.9 Const General: alert Neck Neck: Yes normal visual inspection, Yes full ROM and Yes no lymphadenopathy Chest Chest palpation & inspection: normal inspection of the chest Resp Effort & Inspection: normal respiratory effort Auscultation: diminished lung sounds Cardio Rate: regular rate Rhythm: regular rhythm Heart sounds: S1 normal heart sound present and S2 normal heart sound present General: Yes no CVA tenderness Back/Spine/Pelvis Back: no CVA tenderness Neuro Cranial nerves: Yes Normal hearing present Speech: No Abnormal speech present Extrem General: Yes edema (non pitting) Assessment & Plan Assessment & Plan (1) Lymphedema: Code(s): I89.0 - Lymphedema, not elsewhere classified Category: Medical (2) Asthma: Code(s): J45.909 - Unspecified asthma, uncomplicated Category: Medical Qualifiers: Asthma severity: moderate Asthma persistence: persistent Asthma complication type: uncomplicated Qualified Code(s): J45.40 - Moderate persistent asthma, uncomplicated (3) BRENNA (obstructive sleep apnea): Code(s): G47.33 - Obstructive sleep apnea (adult) (pediatric) Category: Medical (4) Dyspnea: Code(s): R06.00 - Dyspnea, unspecified Category: Medical Qualifiers: Dyspnea type: dyspnea on exertion Qualified Code(s): R06.09 - Other forms of dyspnea (5) Chest pain: Code(s): R07.9 - Chest pain, unspecified Category: Medical Qualifiers: Chest pain type: unspecified Qualified Code(s): R07.9 - Chest pain, unspecified Plan continue CPAP, needs to use it 4 hours or more. Will try a f30 small mask. symbicort/spiriva (Breztri was not covered) continue Daliresp 500mcg short-acting beta agonist as needed melatonin for sleep restart lasix, bloodwork today stopped plaquenil follow-up in 3 months Orders: Orders Basic Metabolic Panel Today D64.9 - Anemia, unspecified, I89.0 - Lymphedema, not elsewhere classified, R07.9 - Chest pain, unspecified Erythrocyte Sedimentation Rate Today D64.9 - Anemia, unspecified, I89.0 - Lymphedema, not elsewhere classified, R07.9 - Chest pain, unspecified PT, INR - Anti Coag Today D64.9 - Anemia, unspecified, I89.0 - Lymphedema, not elsewhere classified, R07.9 - Chest pain, unspecified Ferritin Today D64.9 - Anemia, unspecified, I89.0 - Lymphedema, not elsewhere classified, R07.9 - Chest pain, unspecified IRON PROFILE Today D64.9 - Anemia, unspecified, I89.0 - Lymphedema, not elsewhere classified, R07.9 - Chest pain, unspecified Complete Blood Count Auto Diff Today D64.9 - Anemia, unspecified, I89.0 - Lym phedema, not elsewhere classified, R07.9 - Chest pain, unspecified Medications: Changed From furosemide (Lasix) 10 mg (1/2 x 20 mg) PO DAILY 90 days PRN 45 tabs 0RF edema To furosemide (Lasix) 20 mg PO DAILY 90 tabs 0RF 90 days Coding Level of Care Code Est Pt Level 4 (46788) Diagnoses Lymphedema I89.0 Moderate persistent asthma without complication J45.40 Asthma severity: moderate Asthma persistence: persistent Asthma complication type: uncomplicated BRENNA (obstructive sleep apnea) G47.33 Dyspnea on exertion R06.09 Dyspnea type: dyspnea on exertion Chest pain, unspecified type R07.9 Chest pain type: unspecified Time Spent (min) 17
== END 2024-01-13 10:08 | disposition home or self-care (01) ==
PROVIDERS: PCP Nurse Practitioner Family; Visit Provider Hospitalist
DX: I89.0 Lymphedema, not elsewhere classified (principal); J45.40 Moderate persistent asthma, uncomplicated; G47.33 Obstructive sleep apnea (adult) (pediatric); R06.09 Other forms of dyspnea; R07.9 Chest pain, unspecified
CPT/HCPCS: 99214

== ENCOUNTER → 2024-01-13 09:42 | Outpatient (BNVA) | payer OTHER, SELFPAY | PROVIDERS: PCP Nurse Practitioner Family; Visit Provider Hospitalist | DX: J45.40 Moderate persistent asthma, uncomplicated (principal); I89.0 Lymphedema, not elsewhere classified; G47.33 Obstructive sleep apnea (adult) (pediatric); R06.09 Other forms of dyspnea; R07.9 Chest pain, unspecified | CPT/HCPCS: 99212 ==

== ENCOUNTER → 2024-01-24 14:07 | Outpatient (REF) | payer OTHER, SELFPAY | LOC: HO.SL 14:07 | PROVIDERS: PCP Nurse Practitioner Family; Visit Provider Hospitalist | DX: G47.33 Obstructive sleep apnea (adult) (pediatric) (principal) | CPT/HCPCS: 95806 ==

== ENCOUNTER → 2024-01-24 14:20 | Outpatient (BNV) | payer OTHER, SELFPAY | PROVIDERS: PCP Nurse Practitioner Family; Visit Provider Internal Medicine | DX: G47.33 Obstructive sleep apnea (adult) (pediatric) (principal) | CPT/HCPCS: 95806 ==

== ENCOUNTER 2024-02-16 11:24 | Outpatient (AMB) | payer OTHER, SELFPAY ==
[2024-02-16 11:30] VITALS: BP 122/76; BMI 46.5
--- NOTE | 2024-02-16 11:30 | A.OFFVIS_ITS ---
Vital Signs 02/16/24 11:30 Height 5 ft Weight 238 lb 1.588 oz BMI 46.5 BP 122/76 Intake Visit Reasons: Follow-up Pharmaceutical Engineer Required: No Information Interpreted: non-clinical & clinical Multiple Pressure Riveter Operator: Multiple Pressure Riveter Operator Present (Sheila TYLER) Accompanied by: Self / Same As Patient Allergies No Known Allergies Allergy (Verified 02/16/24 11:38) HPI Comments Details: Presenting for 3 months follow-up after starting Provera 10 mg p.o. q.d., the patient is complaining of continuous vaginal bleeding. The following workup was done.: H&H= 13.8/40.7 TSH, hCG, GC and chlamydia were negative. FSH/LH in the menopausal range Hysteroscopy D&C polypectomy, pathology showed the following: A. Endometrium, curettage: Benign inactive to weakly proliferative endometrium, markedly fragmented, and fragments of benign endocervical glandular and squamous epithelium; no atypia or carcinoma. B. Endometrial polyp, resection: Fragments of benign endometrial polyp and fragments of benign endocervical glandular and squamous mucosa; no atypia or carcinoma Co testing was done was negative. Mammogram was BI-RADS 1. Pelvic ultrasound showed the following: Uterus: The uterus is anteverted and measures 11.2 x 3.9 x 5.3 cm. 1.5 x 1.6 x 1.7 cm subserosal fibroid is seen in the posterior body of the uterus. 0.8 x 0.5 x 0.6 cm intramural fundal fibroid is seen. The endometrial thickness is 0.4 mm. Adnexa: Both ovaries are visualized. There is normal color flow to the adnexa. There is no ovarian torsion. There is no pelvic ascites or fluid collection. Right ovary measures 3.1 x 1.5 x 2.5 cm. Volume 6.2 mL. Left ovary measures 3.0 x 0.9 x 1.9 cm. Volume 2.6 mL. [facility] Medical History (Updated 02/16/24 @ 11:58 by Choco Franz MD) Anemia PONV (postoperative nausea and vomiting) History of endometriosis Lymphedema Chest pain Asthma-COPD overlap syndrome Epigastric pain Pneumonia Asthma BRENNA (obstructive sleep apnea) Dyspnea Pneumonitis Paget disease of bone Vitamin D deficiency Elevated alkaline phosphatase level Abdominal adhesions Tubal ligation evaluation Surgical History H/O cervical polypectomy History of appendectomy H/O lithotripsy History of renal stent Family History Father HTN (hypertension), benign BRENNA (obstructive sleep apnea) Mother HTN (hypertension), benign Osteoporosis Paternal Grandmother Stomach cancer Other Family history of arthritis Social History Household Members: Children Alcohol intake: current Alcohol intake frequency: holidays/special occasions only Alcohol type: wine Patient Tobacco Use Status: Never used Tobacco e-Cigarette/Vaping Use: Never Used Second Hand Smoke Exposure: No Current occupational status: employed Current occupation: [employer] Cognitive needs: No Hearing needs: No Vision needs: No Review of Systems Const All systems reviewed & are unremarkable except as noted in HPI and below Reports as per HPI and Reports no additional complaints GI Reports no additional complaints Reports no additional complaints Physical Exam Vital Signs: BMI result Body Mass Index 46.5 Results AMB Test Urine AMB Test Urine Negative Last Edit by Sheila Varela CMA on 11:44 Assessment & Plan Assessment & Plan (1) Abnormal uterine bleeding: Comment: Elevated FSH/LH Proliferative endometrium on Provera Code(s): N93.9 - Abnormal uterine and vaginal bleeding, unspecified Category: Medical Plan: EMB attempted but could not be tolerated by the patient , so it was aborted . The patient is requesting surgical management for persistent vaginal bleeding. Discussed with the patient the different types of hysterectomies including, vaginal, laparoscopic assisted vaginal, robotic assisted laparoscopic,& abdominal with BSO. All pros, cons, r/b of each approach were discussed the patient including evidence that morbidity is less and recovery is shorter with minimally invasive approaches to hysterectomy. Discussed with the patient the lack of availability of the robot DaVinci robot and/or minimally invasive swim instructor specialist at [facility]. The Patient will be referred to a tertiary care center, [facility] for minimally invasive hysterectomy. All questions answered, the patient verbalized understanding. Instructed the patient to call our office back in case a referral appointment is not scheduled, missed or canceled so that we will assist on rescheduling another appointment, the patient verbalized understanding agreed with the plan. Orders: Orders AMB HCG Urine Test Today Z32.02 - Encounter for test, result negative Coding Level of Care Code Est Pt Level 3 (15327) Diagnoses Abnormal uterine bleeding N93.9
== END 2024-02-16 12:02 | disposition home or self-care (01) ==
PROVIDERS: PCP Nurse Practitioner Family; Visit Provider Obstetrics & Gynecology
DX: N93.9 Abnormal uterine and vaginal bleeding, unspecified (principal); Z32.02 Encounter for pregnancy test, result negative
CPT/HCPCS: 99213

== ENCOUNTER → 2024-02-16 11:24 | Outpatient (BNVA) | payer OTHER, SELFPAY | PROVIDERS: PCP Nurse Practitioner Family; Visit Provider Obstetrics & Gynecology | DX: N93.9 Abnormal uterine and vaginal bleeding, unspecified (principal) | CPT/HCPCS: 81025; 99212 ==

== ENCOUNTER 2024-04-20 13:47 | Outpatient (AMB) | payer OTHER, SELFPAY ==
--- NOTE | 2024-04-20 13:54 | MHC.OFFVIS ---
Vital Signs 04/20/24 13:56 Height 5 ft Weight 256 lb 13.416 oz BMI 50.2 BP 132/86 Blood Pressure Location Rt brachial Position Sitting Pulse 68 Pulse Source Doppler Pulse Oximetry (%) 98 Oxygen Delivery Method Room Air Intake Visit Reasons: Asthma/Sleep Study Follow Up Allergies No Known Allergies Allergy (Verified 04/20/24 13:59) HPI Comments Details: The patient is a 49-year-old woman previously healthy who apparently about a year ago developed significant pneumonia and pneumonitis. At that time the patient was tested for COVID and she was negative. However after that she never felt the same. She continues to have episodes of shortness of breath. Her shortness of breath episodes happen suddenly in the can be moderate to severe. She has been evaluated in the ER at [facility] multiple times. The patient has had repeat x-rays without any acute disease. Her symptoms have been very debilitating. Will do a workup at this time looking for etiologies for pneumonitis. 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 Recently did did get him a dehumidifier. In the meantime the patient also had daytime drowsiness. She has significant episodes which she wakes up at nighttime. Her Bagley score is elevated 09/05. The patient will need to undergo a sleep study at this time as well. In addition to that did appears to have some degree of upper airway obstruction which could be secondary to vocal cord dysfunction that she be further addressed later on. 12/17/2023 the patient is here for pulmonary follow-up visit. The patient is feeling little better. She did go to the lymphedema clinic and she found it very helpful. She is frustrated with diagnosis but she is trying to make things better for herself. The patient did take some diuretics as needed. However it does make her feel tired and weak and therefore she does not like to take it much. the patient has been using her CPAP for the last 4 days. She is found it affecting beneficial. I did download the data and appears that her AHI is below one which is reassuring. Although right now she has no longer active from the [employer] standpoint because she has not used in a while. She will need another sleep study in order to get activated again. She does have significant daytime drowsiness and significant lower extremity edema specially she does not use CPAP. Her Bagley score when she was not using the CPAP was up to 12/24. Therefore, now that she is using CPAP she should start feeling better. Will go ahead and repeat her sleep study in order for her to go to get active with the [employer] company and be able to get supplies and avoid using equipment that is contaminated. 01/13/2024 the patient is here for pulmonary follow-up visit. The patient overall been doing well. She has been using the CPAP. The CPAP therapy has been affecting beneficial. She does try to use it more than 4 hours a night. Some nights she still has a hard time because she has insomnia. I did explain to her that she needs to use the 4 hours to qualify. Her AHI is below 5 which is reassuring. In addition to that we did talk about her dietary indiscretions. She needs to make sure she maintains a low-sodium diet because lymphedema. Will go ahead and keep her on the Lasix although she will need to have blood work today and also in 3 months' time when she comes back. Will hold off on the Plaquenil explained to her that has adverse effects and I do not believe she needs it. She continue with current respiratory therapy. Will follow-up in 3 months. 04/20/2024 the patient is here for a pulmonary follow-up visit. The patient overall has been doing well. She is getting ready for surgery. 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 She was referred to [facility] which is going to have robotic surgery with vein she. The patient has been using her CPAP. CPAP therapy has been affecting beneficial. She does use it for more than 4 hours a night. Respiratory status has been stable. She has been trying to maintain a low-sodium diet. She had been on Lasix as needed. Will try to hold off on additional diuretics she continues to make lifestyle changes. Lower extremity edema appears to be better as well. the patient also has been doing well from an asthma standpoint. She has been on the Trelegy inhaler with good effect. She has not required her rescue inhaler. Otherwise patient is without any other complaints. Will send us noticed a preoperative evaluation. The patient may be able to proceed with anesthesia and surgery from a pulmonary standpoint. The patient needs to be provided pre and post bronchodilator therapy as needed for her asthma. She also will need to use her CPAP machine if she does of to stay in the hospital. the patient also tends to retain fluids so therefore close monitoring of her volume status postoperatively also warranted. [facility] Medical History (Updated 04/20/24 @ 22:31 by Hadley Shukla MD) Anemia PONV (postoperative nausea and vomiting) History of endometriosis Lymphedema Chest pain Asthma-COPD overlap syndrome Epigastric pain Pneumonia Asthma BRENNA (obstructive sleep apnea) Dyspnea Pneumonitis Paget disease of bone Vitamin D deficiency Elevated alkaline phosphatase level Abdominal adhesions Tubal ligation evaluation Surgical History H/O cervical polypectomy History of appendectomy H/O lithotripsy History of renal stent Family History Father HTN (hypertension), benign BRENNA (obstructive sleep apnea) Mother HTN (hypertension), benign Osteoporosis Paternal Grandmother Stomach cancer Other Family history of arthritis Social History Household Members: Children Alcohol intake: current Alcohol intake frequency: holidays/special occasions only Alcohol type: wine Patient Tobacco Use Status: Never used Tobacco e-Cigarette/Vaping Use: Never Used Second Hand Smoke Exposure: No Current occupational status: employed Current occupation: N Cognitive needs: No Hearing needs: No Vision needs: No Review of Systems Const Reports difficulty sleeping and Denies night sweats ENT Reports Normal hearing present, Denies change in voice, Denies lip swelling, Denies mouth pain, Reports nasal congestion, Reports nasal discharge and Denies tongue swelling Card Denies chest pain and Reports leg edema Resp Denies chest congestion, Reports cough, Denies stridor and Denies wheezing GI Reports no additional complaints Musc Denies no additional complaints Neuro Reports Normal hearing present, Denies Neuro-related abnormal movements and Denies Abnormal speech present Psych Denies no additional complaints David/Lymph Denies easy bleeding and Denies lymphadenopathy Aller/Immun Denies lip swelling, Denies tongue swelling and Denies wheezing Physical Exam Vital Signs: Last Vital Signs Pulse 68 04/20/24 13:56 BP 132/86 04/20/24 13:56 Pulse Ox 98 04/20/24 13:56 Oxygen Delivery Method Room Air 04/20/24 13:56 BMI result Body Mass Index 50.2 Const General: alert Neck Neck: Yes normal visual inspection, Yes full ROM and Yes no lymphadenopathy Chest Chest palpation & inspection: normal inspection of the chest Resp Effort & Inspection: normal respiratory effort Auscultation: diminished lung sounds Cardio Rate: regular rate Rhythm: regular rhythm Heart sounds: S1 normal heart sound present and S2 normal heart sound present General: Yes no CVA tenderness Back/Spine/Pelvis Back: no CVA tenderness Neuro Cranial nerves: Yes Normal hearing present Speech: No Abnormal speech present Extrem General: Yes edema (non pitting) Assessment & Plan Assessment & Plan (1) Pre-op chest exam: Code(s): Z01.811 - Encounter for preprocedural respiratory examination Category: Medical (2) Lymphedema: Code(s): I89.0 - Lymphedema, not elsewhere classified Category: Medical (3) Asthma: Code(s): J45.909 - Unspecified asthma, uncomplicated Category: Medical Qualifiers: Asthma complication type: uncomplicated Asthma persistence: persistent Asthma severity: moderate Qualified Code(s): J45.40 - Moderate persistent asthma, uncomplicated (4) BRENNA (obstructive sleep apnea): Code(s): G47.33 - Obstructive sleep apnea (adult) (pediatric) Category: Medical (5) Dyspnea: Code(s): R06.00 - Dyspnea, unspecified Category: Medical Qualifiers: Dyspnea type: dyspnea on exertion Qualified Code(s): R06.09 - Other forms of dyspnea (6) Chest pain: Code(s): R07.9 - Chest pain, unspecified Category: Medical Qualifiers: Chest pain type: unspecified Qualified Code(s): R07.9 - Chest pain, unspecified Plan proceed with anesthesia and surgery continue CPAP, needs to use it 4 hours or more. Will try a f30 small mask. symbicort/spiriva short-acting beta agonist as needed melatonin for sleep low Na diet follow-up in 6 months Coding Level of Care Code Est Pt Level 4 (15696) Diagnoses Pre-op chest exam Z01.811 Lymphedema I89.0 Moderate persistent asthma without complication J45.40 Asthma complication type: uncomplicated Asthma persistence: persistent Asthma severity: moderate BRENNA (obstructive sleep apnea) G47.33 Dyspnea on exertion R06.09 Dyspnea type: dyspnea on exertion Chest pain, unspecified type R07.9 Chest pain type: unspecified Time Spent (min) 16
[2024-04-20 13:56] VITALS: BP 132/86; PULSE 68; O2SAT 98; BMI 50.2
== END 2024-04-20 15:54 | disposition home or self-care (01) ==
PROVIDERS: PCP Nurse Practitioner Family; Visit Provider Hospitalist
DX: Z01.811 Encounter for preprocedural respiratory examination (principal); I89.0 Lymphedema, not elsewhere classified; J45.40 Moderate persistent asthma, uncomplicated; G47.33 Obstructive sleep apnea (adult) (pediatric); R06.09 Other forms of dyspnea; R07.9 Chest pain, unspecified
CPT/HCPCS: 99214

== ENCOUNTER → 2024-04-20 13:47 | Outpatient (BNVA) | payer MEDICAID, SELFPAY | PROVIDERS: PCP Nurse Practitioner Family; Visit Provider Hospitalist | DX: Z01.811 Encounter for preprocedural respiratory examination (principal); J45.40 Moderate persistent asthma, uncomplicated; I89.0 Lymphedema, not elsewhere classified; G47.33 Obstructive sleep apnea (adult) (pediatric); R06.09 Other forms of dyspnea; R07.9 Chest pain, unspecified | CPT/HCPCS: 99212 ==

== ENCOUNTER 2024-06-19 13:42 | Outpatient (AMB) | payer OTHER, SELFPAY ==
--- NOTE | 2024-06-19 13:44 | MHC.PC.OV ---
Vital Signs 06/19/24 13:46 Height 5 ft Weight 261 lb BMI 51.0 BP 130/80 Blood Pressure Location Rt brachial Position Sitting Pulse 72 Pulse Source Pulse Oximeter Pulse Oximetry (%) 97 Oxygen Delivery Method Room Air Intake Visit Reasons: PRE-OP HYSTERECTOMY Intake Note: pt is here for Pre op for HYsterectomy, per [facility] SITE CONTROLLER she does not require EKG or labs. It is up to PCP if needed. Advertising Copywriter Required: No Allergies No Known Allergies Allergy (Verified 06/19/24 17:07) Medication List - Last Reconciled 06/19/24 by Ko Byers FILLER IN- albuterol sulfate 90 mcg/actuation 2 inhalations inhalation DAILY PRN 30 days albuterol sulfate 2.5 mg (3 mL) inhalation Q6H PRN 30 days bisacodyl (Dulcolax (bisacodyl)) 10 mg orally 2 TABS QHS AND 1 QAM; CPAP (CPAP Machine/Device) As directed docusate sodium 100 mg PO BID PRN famotidine 40 mg PO BEDTIME PRN 30 days tntjzbzhlkm-vzaewszif-reppryzp 200-62.5-25 mcg (Trelegy Ellipta) 1 inh inhalation DAILY 30 days hydroxychloroquine (Plaquenil) 200 mg PO DAILY 30 days medroxyprogesterone (Provera) 10 mg PO DAILY 90 days melatonin 5 mg PO BEDTIME PRN 30 days nebulizers As directed omeprazole 40 mg PO DAILY oxybutynin chloride ER 15 mg PO DAILY roflumilast (Daliresp) 500 mcg PO DAILY sertraline mg PO Symbicort 160-4.5 mcg/actuation (budesonide-formoterol) 2 puffs inhalation BID 30 days NS tiotropium bromide 2.5 mcg/actuation (Spiriva Respimat) 2 puffs inhalation DAILY 90 days Tobacco use date assessed: 06/19/24 Dental Screening Dental Screen Date: 06/19/24 Did you have a dental visit in the last 12 months?: Yes Did you have a dental problem in the last 6 months where you did not have access to dental care?: No Was dental information given to patient?: Patient has dentist HPI PRE-OP HYSTERECTOMY HPI Details Pt is here for a pre-op evaluation. She is scheduled to undergo a hysterectomy on 07/06. She is having this due to precancerous cells (according to pt) and abnormal uterine bleeding. Will order labs. Pt's thyroid feels/looks enlarged on exam, will order US. This will not interfere with her surgery. Chronic leukocytosis noted. PT IS CLEAR FOR SURGERY FROM MY STANDPOINT. [facility] Medical History Anemia PONV (postoperative nausea and vomiting) History of endometriosis Lymphedema Chest pain Asthma-COPD overlap syndrome Epigastric pain Pneumonia Asthma BRENNA (obstructive sleep apnea) Dyspnea Pneumonitis Paget disease of bone Vitamin D deficiency Elevated alkaline phosphatase level Abdominal adhesions Tubal ligation evaluation Surgical History H/O cervical polypectomy History of appendectomy H/O lithotripsy History of renal stent Family History Father HTN (hypertension), benign BRENNA (obstructive sleep apnea) Mother HTN (hypertension), benign Osteoporosis Paternal Grandmother Stomach cancer Other Family history of arthritis Social History Household Members: Children Alcohol intake: current Alcohol intake frequency: holidays/special occasions only Alcohol type: wine Patient Tobacco Use Status: Never used Tobacco e-Cigarette/Vaping Use: Never Used Second Hand Smoke Exposure: No Current occupational status: employed Current occupation: N Cognitive needs: No Hearing needs: No Vision needs: No Questionnaire PHQ-9 Over the last 2 weeks, how often have you been bothered by any of the following problems? 1. Little interest or pleasure in doing things: not at all 2. Feeling down, depressed, or hopeless: more than half the days 3. Trouble falling or staying asleep, or sleeping too much: more than half the days 4. Feeling tired or having little energy: more than half the days 5. Poor appetite or overeating: more than half the days 6. Feeling bad about yourself - or that you are a failure or have let yourself or your family down: more than half the days 7. Trouble concentrating on things, such as reading the newspaper or watching television: more than half the days 8. Moving or speaking so slowly that other people could have noticed. Or the opposite - being so fidgety or restless that you have been moving around a lot more than usual: not at all 9. Thoughts that you would be better off or of hurting yourself in some way: not at all Total score: 12 Depression Screening Interpretation: Positive (will have our team reach out to pt, denies any si or hi) Depression Screening Follow-up: Existing condition Depression Screening Done: Yes 32435 - PHQ-9 Billing: Yes Source: Developed by Drs. Pee Davey, Rosalie Powers, Max Erwin and colleagues, with an educational siddharth from [employer]. Thrive Questionnaire Date Thrive assessed: 06/19/24 I am a: Parent/Caregiver What is your living situation today?: I choose not to answer this question Within the past 12 months, did the food you bought not last and you didn't have the money to get more?: I choose not to answer this question Within the past 12 months, did you worry whether your food would run out before you got money to buy more?: I choose not to answer this question Do you have trouble paying for medicines?: I choose not to answer this question Do you have trouble getting transportation to medical appointments?: No Do you have trouble paying your heating and electricity bill?: I choose not to answer this question Do you have trouble taking care of your child, family member or friend?: I choose not to answer this question Do you have trouble with day-to-day activities such as bathing, preparing meals, shopping, managing finances, etc.?: I choose not to answer this question Are you interested in more education?: I choose not to answer this question Please select the resources that you would like help with: Daily support Currently or been in a relationship where the following occur: No concerns reported THRIVE Score: 0 AUDIT C Alcohol Use Questionnaire (AUDIT-C) 1. How often do you have a drink containing alcohol?: Monthly or less 2. How many drinks containing alcohol do you have on a typical day when you are drinking?: 3 or 4 3. How often do you have six or more drinks on one occasion?: Never Total Score: 2 Score Reviewed/Action Taken: Yes SEAN-7 AMB Questionnaire SEAN-7 Date SEAN - 7 assessed: 06/19/24 Feeling nervous, anxious, or on edge: 3 = Nearly every day Not being able to stop or control worryin = Nearly every day Worrying too much about different things: 3 = Nearly every day Trouble relaxin = Nearly every day Being so restless that it is hard to sit still: 2 = More than half the days Becoming easily annoyed or irritable: 1 = Several days Feeling afraid as if something awful might happen: 1 = Several days Total SEAN-7 score (0-4 normal; 5-9 mild; 10-14 moderate; 15-21 severe): 16 Source: Developed by Drs. Pee Davey, Rosalie Powers, Max Erwin and colleagues, with an educational siddharth from [employer]. SEAN-7 Assessment Billing SEAN-7 Assessment Tool: SEAN-7 Assessment 49989 Review of Systems Const Denies chills and Denies fever(s) Eyes Denies blurry vision ENT Denies vertigo, Denies dizziness and Denies sore throat Card Denies chest pain at rest, Denies chest pain with activity, Denies diaphoresis, Denies dyspnea and Denies dyspnea on exertion Resp Denies cough, Denies dyspnea, Denies dyspnea on exertion and Denies wheezing GI Denies abdominal pain, Denies melena, Denies hematochezia, Denies constipation, Denies diarrhea and Denies loose stools Denies hematuria Musc Denies numbness and Denies tingling Skin/Breast Denies lesions Neuro Denies vertigo, Denies dizziness, Denies numbness and Denies tingling Psych Denies anxiety, Denies depression, Denies homicidal ideation, Denies suicidal ideation and Denies other (substance abuse) Aller/Immun Denies wheezing Physical exam (Primary Care) Vital Signs: Last Vital Signs Pulse 72 06/19/24 13:46 BP 130/80 06/19/24 13:46 Pulse Ox 97 06/19/24 13:46 Oxygen Delivery Method Room Air 06/19/24 13:46 BMI result Body Mass Index 51.0 Tobacco/Smoking Status: Tobacco use Status Tobacco use date assessed 06/19/24 06/19/24 13:48 Patient Tobacco Use Status Never used Tobacco 06/19/24 13:46 e-Cigarette/Vaping Use Never Used 06/19/24 13:46 PHQ-9: PHQ-9 Score PHQ-9: Total score 12 06/19/24 16:51 Depression Screening Interpretation: Positive (will have our BH team reach out to pt, denies any si or hi) Depression Screening Follow-up: Existing condition Thrive Assessment: Date of Thrive Assessment Date Thrive assessed 06/19/24 06/19/24 13:48 Currently or been in a relationship where the following occur: No concerns reported Const General: cooperative Nutritional Appearance: obese morbidly obese Orientation/consciousness: patient oriented x3 Neck Other: thyroid enlarged Neck: Yes no lymphadenopathy Resp Effort & Inspection: normal respiratory effort Auscultation: clear to auscultation bilaterally Cardio Rate: regular rate Rhythm: regular rhythm Heart sounds: S1 normal heart sound present, S2 normal heart sound present and no murmurs Neuro General: patient oriented x3 Psych Appearance: grossly normal Mental Status: mental status grossly normal Speech and movement: Normal speech and movement present Affect: normal affect Attitude: cooperative Thought process: Normal thought process present Thought content: Normal thought content present Insight: Good insight present (Psych) Judgement: Good judgement present (Psych) Coding Level of Care Code Est Pt Prev Care 40-64y(97404) Diagnoses Pre-op evaluation Z01.818 Enlarged thyroid E04.9 Elevated alkaline phosphatase level R74.8 Elevated WBC count D72.829 Screening for colon cancer Z12.11 Additional Codes SEAN-7 Assessment Billing - SEAN-7 Assessment Tool: SEAN-7 Assessment 29311 ([id number]) Assessment & Plan Assessment & Plan (1) Pre-op evaluation: Code(s): Z01.818 - Encounter for other preprocedural examination Category: Medical Plan: Labs ordered (2) Enlarged thyroid: Code(s): E04.9 - Nontoxic goiter, unspecified Category: Medical Plan: US ordered (3) Elevated alkaline phosphatase level: Comment: fractionated study reordered, has seen GI and endo in the past for this Code(s): R74.8 - Abnormal levels of other serum enzymes Category: Medical (4) Elevated WBC count: Comment: chronic Code(s): D72.829 - Elevated white blood cell count, unspecified Category: Medical Plan: chronically elevated (5) Screening for colon cancer: Code(s): Z12.11 - Encounter for screening for malignant neoplasm of colon Category: Medical Plan The patient agreed to the use of a forensic medical examiner for this encounter. Scribed for Ko Byers, FILLER IN-BC by Kristal Hackett forensic medical examiner, on 06/19/2024 at 14:10 EST. Orders: Orders Complete Blood Count Auto Diff Today Z01.818 - Encounter for other preprocedural examination Alkaline Phosphatase Isoenzyme Today R74.8 - Abnormal levels of other serum enzymes Gamma Glutamyl Transpeptidase Today R74.8 - Abnormal levels of other serum enzymes Comprehensive Met. Panel Today Z01.818 - Encounter for other preprocedural examination TSH reflex Free T4 Today Z01.818 - Encounter for other preprocedural examination UA CC w/rflx Micro + Cult Today Z01.818 - Encounter for other preprocedural examination Prothrombin Time INR Today Z01.818 - Encounter for other preprocedural examination Partial Thromboplastin Time Today Z01.818 - Encounter for other preprocedural examination US thyroid Today E04.9 - Nontoxic goiter, unspecified Referrals Gastroenterology Referral Z12.11 - Encounter for screening for malignant neoplasm of colon Hematology & Oncology Referral D72.829 - Elevated white blood cell count, unspecified, Z12.11 - Encounter for screening for malignant neoplasm of colon
[2024-06-19 13:46] VITALS: BP 130/80; PULSE 72; O2SAT 97; BMI 51.0
== END 2024-06-19 16:55 | disposition home or self-care (01) ==
PROVIDERS: PCP Nurse Practitioner Family; Visit Provider Nurse Practitioner Family
DX: Z01.818 Encounter for other preprocedural examination (principal); E04.9 Nontoxic goiter, unspecified; R74.8 Abnormal levels of other serum enzymes; D72.829 Elevated white blood cell count, unspecified; Z12.11 Encounter for screening for malignant neoplasm of colon

== ENCOUNTER → 2024-06-19 13:42 | Outpatient (BNVA) | payer MEDICAID, SELFPAY | PROVIDERS: PCP Nurse Practitioner Family; Visit Provider Nurse Practitioner Family ==

== ENCOUNTER 2024-06-19 14:15 | Outpatient (REF) | payer OTHER, SELFPAY ==
[2024-06-19 16:13] LABS: MANUAL DIFF FLAG NO
[2024-06-19 16:20] LABS: Prothrombin Time 11.7 SEC (10.9-12.4)
[2024-06-19 16:21] LABS: Appearance Urine Clear; Color Urine Yellow; Glucose Urine UA Negative (Negative); Leukocyte Esterase Urine Negative (Negative); Nitrite Urine Negative (Negative); Specific Gravity - Urine 1.025 (1.005-1.025); Urine Blood Negative (Negative); Urine Ketones Negative (Negative); Urine Protein Negative (Neg-Trace)
[2024-06-19 16:23] LABS: Partial Thromboplastin Time 34.6 SEC (26.0-36.8)
[2024-06-19 16:34] LABS: Basophils Absolute Auto 0.1 X10*3/uL (0.0-0.2); Basophils Percent Auto 0.7 % (0-2); Eosinophils Absolute Auto 0.3 X10*3/uL (0.0-0.4); Eosinophils Percent Auto 2.5 % (0-4); Hematocrit 43.2 % (37.0-47.0); Hemoglobin 13.7 g/dl (12.0-16.0); Imm Gran Abs Auto 0.08 X10*3/uL (0.00-0.03); Imm Gran Pct Auto 0.7 % (0.0-0.4); Lymphocytes Absolute Auto 3.4 X10*3/uL (1.2-4.9); Lymphocytes Percent Auto 29.3 % (20-40); Mean Corpuscular HGB Conc 31.7 g/dl (31.0-35.0); Mean Corpuscular Hemoglobin 24.2 pg (27.0-33.0); Mean Corpuscular Volume 76.2 fL (80.0-98.0); Mean Platelet Volume 10.9 fL (9.4-12.3); Monocytes Absolute Auto 0.7 X10*3/uL (0.1-1.2); Neutrophils Percent Auto 60.8 % (45-73); Platelet Count 300 X10*3/uL (160-400); Red Blood Count 5.67 X10*6/uL (4.20-5.50); Red Cell Distribution Width 14.6 % (11.0-16.0); White Blood Count 11.5 X10*3/uL (4.8-10.8)
[2024-06-19 16:38] LABS: Alanine Aminotransferase 41 U/L (0-31); Albumin Level 4.2 g/dL (3.5-5.0); Alkaline Phosphatase 222 U/L (39-117); Anion Gap 12 (12-20); Aspartate Amino Transferase 28 U/L (5-31); Bilirubin Total 0.3 mg/dL (0.0-1.0); Blood Urea Nitrogen 11 mg/dL (9-16); Carbon Dioxide 26 mmol/L (22-29); Chloride 106 mmol/L (96-108); Estimated Glomerular Filt Rate > 60; Glucose Random 95 mg/dL (60-115); Sodium 140 mmol/L (135-145); Total Protein 7.9 g/dL (6.5-8.0)
[2024-06-19 16:53] LABS: TSH reflex Free T4 2.13 uIU/mL (0.32-4.0)
== END 2024-06-19 14:16 | disposition home or self-care (01) ==
LOC: HO.HMGCLDS 14:15
PROVIDERS: PCP Nurse Practitioner Family; Visit Provider Nurse Practitioner Family
DX: Z01.818 Encounter for other preprocedural examination (principal); E04.9 Nontoxic goiter, unspecified; R74.8 Abnormal levels of other serum enzymes; D72.829 Elevated white blood cell count, unspecified
CPT/HCPCS: 36415; 80053; 81003; 84443; 85025; 85610; 85730; 96127; 99212

== ENCOUNTER 2024-06-27 13:48 | Outpatient (REF) | payer OTHER, SELFPAY ==
[2024-06-27 16:19] LABS: Gamma Glutamyl Transpeptidase 322 U/L (7-33)
[2024-06-30 19:23] LABS: Alk.Phos Iso. Macrohepatic 0 % (<=0); Alk.Phos Isoenzymes Bone 31 % (28-66); Alk.Phos Isoenzymes Intest 6 % (1-24); Alk.Phos Isoenzymes Liver 63 % (25-69); Alk.Phos Isoenzymes Placental 0 % (<=0); Alk.Phos Isoenzymes Total 211 U/L (37-153)
== END 2024-06-27 13:49 | disposition home or self-care (01) ==
LOC: HO.US 13:48
PROVIDERS: PCP Nurse Practitioner Family; Visit Provider Nurse Practitioner Family
DX: E04.9 Nontoxic goiter, unspecified (principal); R74.8 Abnormal levels of other serum enzymes
CPT/HCPCS: 36415; 76536; 82977; 84080

== ENCOUNTER → 2024-08-18 14:33 | Outpatient (BNV) | payer OTHER, SELFPAY | PROVIDERS: PCP Nurse Practitioner Family; Referring Provider Nurse Practitioner Family; Visit Provider Internal Medicine Medical Oncology | DX: D72.829 Elevated white blood cell count, unspecified (principal) | CPT/HCPCS: 99204 ==

== ENCOUNTER 2024-09-20 14:56 | Outpatient (AMB) | payer OTHER, SELFPAY ==
[2024-09-20 14:58] VITALS: BP 110/72; PULSE 62; BMI 51.2
--- NOTE | 2024-09-20 14:58 | A.OFFVIS_ITS ---
Vital Signs 09/20/24 14:58 Height 5 ft Weight 262 lb 2.074 oz BMI 51.2 BP 110/72 Blood Pressure Location Lt brachial Position Sitting Pulse 62 Pulse Source Pulse Oximeter Intake Visit Reasons: Disorder of thyroid Intake Note: Patient present today for Disorder of thyroid office visit. Pull Tab Dealer Required: No Accompanied by: Self / Same As Patient Allergies No Known Allergies Allergy (Verified 09/20/24 15:02) Medication List - Last Reconciled 09/20/24 by Elina Herring MD albuterol sulfate 90 mcg/actuation 2 inhalations inhalation DAILY PRN 30 days albuterol sulfate 2.5 mg (3 mL) inhalation Q6H PRN 30 days bisacodyl (Dulcolax (bisacodyl)) 10 mg orally 2 TABS QHS AND 1 QAM; CPAP (CPAP Machine/Device) As directed docusate sodium 100 mg PO BID PRN famotidine 40 mg PO BEDTIME PRN 30 days bmdwjbuxnwj-phgpwwqvx-iqrwfdhc 200-62.5-25 mcg (Trelegy Ellipta) 1 inh inhalation DAILY 30 days hydroxychloroquine (Plaquenil) 200 mg PO DAILY 30 days melatonin 5 mg PO BEDTIME PRN 30 days nebulizers As directed omeprazole 40 mg PO DAILY sertraline 100 mg PO DAILY Symbicort 160-4.5 mcg/actuation (budesonide-formoterol) 2 puffs inhalation BID 30 days NS tiotropium bromide 2.5 mcg/actuation (Spiriva Respimat) 2 puffs inhalation DAILY 90 days HPI Comments Details: 49-year-old female here today for initial evaluation of solitary thyroid nodule. Thyroid ultrasound done 06/27/2024, I reviewed the images myself showed a left isthmus 1.6 cm solid, hypoechoic nodule, not taller than wide, no punctate echogenic foci. TR 4 category. Per ROB guidelines this is a low suspicion nodule with 5-10% chance of malignancy however given that greater than 1.5 cm in size, meets criteria for FNA. PCP palpated the nodule which lead to the ultrasound. Patient currently , hair loss, palpitation, anxiety, weight changes, mood changes,, changes in appearance of eyes or vision changes, tremors, increased diaphoresis or dry skin. ? Hysterectomy June 2024, was bed bound for 6 weeks, has gained 20 lbs since then Does have constipation Reports tiredness low energy Report heat intolerance Describes choking sensation since the past 3 months. Worsening with time. Also feels tender in the neck area. Does have difficulty breathing, chronic due to COPD / asthma. Feels like voice is deeper. Patient denies any history of childhood neck radiation. Denies having ever used lithium, amiodarone or biotin supplements. Patient denies any family history of thyroid cancer. Mother has hypothyroidism . Family history Paternal aunt Colon cancer Maternal aunt Cervical cancer Never smoker Review of systems Constitutional: no fevers, chills HEENT: no changes in vision Cardiac: No chest pain, discomfort or palpitations. Pulmonary: chronic SOB GI:No abdominal pain, no nausea or vomiting, no anorexia, no blood in stool : reports urinary incontinence Physical exam General: sitting comfortably in no acute distress HEENT: normocephalic/atraumatic, EOM intact, moist oral mucosa Neck: supple, palpable left-sided isthmus 2 cm nodule Cardiac: normal heart sounds Pulm: normal breath sounds B/L, no added breath sounds Abd: not distended, no tenderness Extremities: no edema, no signs of myxedema Neuro: AAO x3, Speech: normal, no facial droop, moving all 4 extremities Laboratory Tests 09/15/23 06/19/24 16:16 14:25 TSH 1.94 2.13 US THYROID 06/27/24 CLINICAL INFORMATION: Nontoxic goiter, unspecified. COMPARISON: Thyroid ultrasound 08/23/2013. TECHNIQUE: Linear transducer grayscale and color Doppler examination with attention to the region of the thyroid. FINDINGS: SIZE: Measurements of the thyroid lobes and nodules are given in sagittal, anteroposterior and transverse dimensions respectively. Right Thyroid Lobe: 3.7 x 1.2 x 1.5 cm, volume 3.5 mL. Previously 4.1 x 1.3 x 1.5 cm, volume 3.9 mL. Parenchyma: The gland echotexture is homogeneous. Thyroid vascularity is normal. Left Thyroid Lobe: 3.9 x 1.0 x 1.5 cm, volume 3.1 mL. Previously 3.6 x 1.3 x 1.5 cm, volume 3.8 mL. Parenchyma: The gland echotexture is homogeneous. Thyroid vascularity is normal. Isthmus: 0.5 cm in maximum AP dimension. Previously 0.3 cm. Estimated total number of nodules greater than or equal to 1 cm: 1. Contract Administration Manager nodules are described as follows: 1. Location: Left isthmus. Size: 1.6 x 1.0 x 1.3 cm, volume 1.1 mL. Previously: Not documented. Nodule characteristics: Composition: Solid/almost completely solid (2). Echogenicity: Hypoechoic (2). Shape: Not taller than wide (0). Margins: Smooth (0). Echogenic Foci: None (0). ACR TI-RADS total points: 4 ACR TI-RADS category: 4 NODES: No lymphadenopathy is seen in the tissue surrounding the thyroid gland. US/US thyroid IMPRESSION: 1.6 cm TR4 left isthmic mass meets criteria for biopsy which is recommended. [facility] Medical History (Updated 09/20/24 @ 15:31 by Elina Herring MD) Thyroid nodule Anemia PONV (postoperative nausea and vomiting) History of endometriosis Lymphedema Chest pain Asthma-COPD overlap syndrome Epigastric pain Pneumonia Asthma BRENNA (obstructive sleep apnea) Dyspnea Pneumonitis Paget disease of bone Vitamin D deficiency Elevated alkaline phosphatase level Abdominal adhesions Tubal ligation evaluation Surgical History History of partial hysterectomy H/O cervical polypectomy History of appendectomy H/O lithotripsy History of renal stent Family History Father BRENNA (obstructive sleep apnea) HTN (hypertension), benign Mother Osteoporosis HTN (hypertension), benign Paternal Grandmother Stomach cancer Maternal Grandmother Lung cancer Paternal Aunt Colon cancer Other Family history of arthritis Social History Household Members: Children Alcohol intake: current Alcohol intake frequency: holidays/special occasions only Alcohol type: wine Patient Tobacco Use Status: Never used Tobacco e-Cigarette/Vaping Use: Never Used Second Hand Smoke Exposure: No service: No Current occupational status: employed Current occupation: [employer] Cognitive needs: No Hearing needs: No Vision needs: No Physical Exam Vital Signs: Last Vital Signs Pulse 62 09/20/24 14:58 BP 110/72 09/20/24 14:58 BMI result Body Mass Index 51.2 Assessment & Plan Assessment & Plan (1) Thyroid nodule: Code(s): E04.1 - Nontoxic single thyroid nodule Category: Medical Plan: 49-year-old female here today for initial evaluation of left isthmus solitary thyroid nodule. Ultrasound from June 2024 showed a solitary left isthmus 1.6 cm nodule. Patient does have some degree of compressive symptoms. Unlikely that it is related to her nodule because the nodule is so small the she has tenderness of the exact spot where I can feel her nodule. Labs normal from June 2024 but she does complain of increased tiredness. We will recheck thyroid function. Thyroid ultrasound done 06/27/2024, I reviewed the images myself showed a left isthmus 1.6 cm solid, hypoechoic nodule, not taller than wide, no punctate echogenic foci. TR 4 category. Per ROB guidelines this is a low suspicion nodule with 5-10% chance of malignancy however given that greater than 1.5 cm in size, meets criteria for FNA. I explained that it is common to have thyroid nodules. About 95% of the time these nodules are benign. However if the nodule is > 1 cm in size or suspicious on ultrasound then a fine need aspiration biopsy is recommended. We discussed that a FNAB involves 4-5 passes with a small gauge needle and material obtained is sent off for cytology.If the cytopathology is benign then the nodule will be followed annually with repeat ultrasounds. However if it is suspicious or malignant, we will need to discuss further management. Indeterminate cytology can be further investigated with repeat FNA, genetic testing or empiric lobectomy. Malignant cytology is managed with either lobectomy or total thyroidectomy. We discussed briefly that thyroid cancer is, in most patients, an indolent disease that does not affect mortality. We will arrange for FNA of the left isthmus 1.6 cm thyroid nodule at next available opening and patient will follow up with me in clinic thereafter for results and further decision making. Plan: -ordered TSH, free T4 -scheduled for FNA of the left isthmus 1.6 cm nodule and follow up 2 weeks after to discuss results Plan I spent 45 minutes in reviewing the record, seeing the patient and documenting in the medical record. Orders: Orders US biopsy thyroid Today E04.1 - Nontoxic single thyroid nodule Thyroid Stimulating Hormone Today E04.1 - Nontoxic single thyroid nodule Free T4 (Free Thyroxine) Today E04.1 - Nontoxic single thyroid nodule Patient Instructions: Do blood work today , we will reach out with results We will book you for a thyroid biopsy and a follow up 2 weeks after to discuss results Coding Level of Care Code New Pt Level 4 (40407) Diagnoses Thyroid nodule E04.1 Time Spent (min) 45
== END 2024-09-20 15:38 | disposition home or self-care (01) ==
PROVIDERS: PCP Nurse Practitioner Family; Visit Provider Student in an Organized Health Care Education/Training Program
DX: E04.1 Nontoxic single thyroid nodule (principal)
CPT/HCPCS: 99204

== ENCOUNTER 2024-09-20 14:56 | Outpatient (REF) | payer OTHER, SELFPAY ==
[2024-09-20 18:24] LABS: Free T4 (Free Thyroxine) 1.05 ng/dL (0.71-1.85); Thyroid Stimulating Hormone 1.75 uIU/mL (0.32-4.0)
== END 2024-09-20 14:57 | disposition home or self-care (01) ==
LOC: HO.LAB 14:56
PROVIDERS: PCP Nurse Practitioner Family; Visit Provider Student in an Organized Health Care Education/Training Program
DX: E04.1 Nontoxic single thyroid nodule (principal)
CPT/HCPCS: 36415; 84439; 84443; 99202

== ENCOUNTER 2024-10-23 14:40 | Outpatient (REF) | payer OTHER, SELFPAY | END 2024-10-23 14:41 | disposition home or self-care (01) | LOC: HO.MAMMO 14:40 | PROVIDERS: PCP Nurse Practitioner Family; Visit Provider Obstetrics & Gynecology | DX: Z12.31 Encounter for screening mammogram for malignant neoplasm of breast (principal) | CPT/HCPCS: 77063; 77067 ==

== ENCOUNTER → 2024-10-23 14:45 | Outpatient (BNV) | payer OTHER, SELFPAY | PROVIDERS: PCP Nurse Practitioner Family; Visit Provider Internal Medicine | DX: Z12.31 Encounter for screening mammogram for malignant neoplasm of breast (principal) | CPT/HCPCS: 77063; 77067 ==

== ENCOUNTER 2024-10-27 13:56 | Outpatient (AMB) | payer OTHER, SELFPAY ==
--- OUTSIDE RECORDS SUMMARY | 2024-10-27 13:57 | XMS_ITS | Clinical Summary ---
Author Organization [facility] Address [address] [place] [address] Care Team Providers Care Ecmo Specialist Name Role Phone Marvin Gibbs PRIVATE INVESTIGATOR SURVEILLANCE Primary Care Provider [phone] Source Comments PLEASE NOTE, if this patient is a minor, it may be UNLAWFUL to discuss sensitive information that is contained in these records (such as FAMILY PLANNING, MENTAL HEALTH or SUBSTANCE ABUSE) with the minor patient's parent or other person without the patient's specific authorization.[facility] Allergies No known active allergies Immunizations Name Administration Dates Next Due MODERNA COVID-19 VACCINE BIVALENT, BLUE CAP, 6M+ 08/29/2022 Family History Medical History Relation Name Comments Hypertension Father Other (See Comments) Father BRENNA Arthritis Mother spine Cancer Paternal Grandmother patient not sure Relation Name Status Comments Father Alive Mother Alive Paternal Grandmother Social History Tobacco Use Types Packs/Day Years Used Date Smoking Tobacco: Never Smokeless Tobacco: Never Tobacco Cessation:Counseling Given: No Alcohol Use Standard Drinks/Week Comments Yes 0 (1 standard drink = 0.6 oz pur e alcohol) weekends Social Connections Answer Date Recorded Social Connections and Isolation 0 05/08/2019 Financial Resource Strain Answer Date R ecorded Financial Resource Strain 0 2018 Stress Answer Date Recorded Stress 0 05/08/2019 Physical Activity Answer Date Recorded Physical Activity 0 05/08/2019 Food Insecurity Answer Date Recorded Food 0 05/08/2019 Transportation Needs Answer Date Record ed Transportation 0 05/08/2019 Housing Stability Answer Date Recorded Housing 0 05/08/2019 Safety and Environment Answer Date Alin rded Safety 0 05/08/2019 Utilities Answer Date Recorded Utilities 0 05/08/2019 Employment Answer Date Recorded Employment 0 05/08/2019 Comments No Sex and Gender Information Value Date Recorded Sex Assigned at Female 11/01/2017 3:32 PM PST Legal Sex Female 7:30 AM PST Gender Identity Female 11/01/2017 3:32 PM PST Sexual Orientation Straight 11/01/2017 3: 32 PM PST Last Filed Vital Signs Vital Sign Reading Time Taken Comments Blood Pressure 100/84 10/21/2017 1:46 PM EST Pulse 60 10/21/2017 1:46 PM EST Temperature 36.6 ??C (97.9 ??F) 10/21/2017 1:46 PM ES T Respiratory Rate 15 10/21/2017 1:46 PM EST Oxygen Saturation - - Inhaled Oxygen Concentration - - Weight 111.3 kg (245 lb 4.8 oz) 10/21/2017 1:46 PM EST Height 153 cm (5' 0.24 ) 10/21/2017 1:46 PM EST Body Mass Index 47.53 10/21/2017 1:46 PM EST Plan of Treatment Health Maintenance Due Date Last Done Comments HPV Screening 1974 Hepatitis C Screening 1974 Lipid Screening 1974 Pap + HPV 1974 Tobacco Screening 1974 HIV Screening 1989 Annual Preventive Care Visit 1992 Imm-Hepatitis B (1 of 3 - 19 + 3-dose series) 1993 Cervical Cancer Screening 1995 Pap Smear 1995 Breast Cancer Screening (Mammogram) 2014 Imm-DTaP/Tdap/Td (2 - Td or Tdap) 08/15/2018 008 Hypertension Screening (#1) 10/21/2018 CT Colonography 2019 Colonoscopy 2019 Colorectal Cancer Screening 2019 FIT/gFOBT 2019 Fecal DNA 2019 Flexible Sigmoidoscopy 2019 Diabetes Screening 10/21/2020 10/21/2017 Imm-Zoster, Recombinant (1 of 2) 2024 [id number] ( season) 2024 08/29/2022, 06/05/2021, 05/08/2021 Imm-Influenza (#1) 2024 08/11/2022, 1 10/14/2020, 08/14/2020 Alcohol and Drug Screen 09/13/2024 10/21/2017 Depression Annual Screen 09/13/2024 Cervical Ablation/Cold-Knife Conization Discontinued Cervical Cryotherapy Discontinued Colposcopy Discontinued Endometrial Biopsy Discontinued Excision/Leep Discontinued HPV Genotyping Discontinued Vaginal Pap Discontinued Vulvoscopy Discontinued Procedures Procedure Name Priority Date/Time Associated Diagnosis Comments COMPREHENSIVE METABOLIC PANEL Routine 10/21/2017 2:38 PM EST Pelvic pain Irregular periods from Last 3 Months or Most Recently Relevant to Health Maintenance Results * (ABNORMAL) COMPRE METAB PANEL (10/21/2017 2:38 PM EST) GLUCOSE 99 70 - 100 mg/dL [facility] Comment:Reference range appl icable to fasting specimens only BUN 9 5 - 25 mg/dL [facility] CREAT 0.77 0.5 - 1.1 mg/dL [facility] GLOMERULAR FILTRATION RATE > 60 [facility] Comment: If patient is -[place], multiply result by 1.21 Chronic Kidney Disease: < 60 ml/min/1.73 square meters Kidney Failure: < 15 ml/min/1.73 square meters SODIUM 138 133 - 145 mmol/L [facility] POTASSIUM 4.1 3.5 - 5.5 mmol/L [facility] CHLORIDE 104 96 - 110 mmol/L [facility] CO2 29 21 - 32 mmol/L [facility] ANION GAP 5 3 - 11 [facility] CALCIUM 9.3 8.5 - 10.5 mg/dL [facility] TOTAL PROTEIN 7.4 6.0 - 8.0 G/dL [facility] ALBUMIN 3.6 3.2 - 5.0 G/dL [facility] BILI, TOTAL 0.2 0.0 - 1.4 mg/dL [facility] SGOT 26 10 - 42 U/L [facility] SGPT 41 10 - 60 U/L [facility] ALK PHOS 193(H) 42 - 121 U/L [facility] Blood specimen (specimen) Blood / Unknown 10/21/2017 2:38 PM EST 10/21/2017 2:53 PM EST Narrative [facility] - 10/21/2017 6:26 PM EST [facility] [address] [place] [address] PT ID [id number] ORD# [id number] Marvin [facility] - BLOOD DRAW Final Result [facility] [address] [place] [address], from Last 3 Months or Most Recently Relevant to Health Maintenance Insurance [facility] [employer] Member Subscriber Plan / Payer (Ef fective 2022-Present) Name:Rudy Floresy Relation to Subscriber:Self Name:Rudy Floresy Payer ID:[id number] Group ID:[id number] Type:Medicaid Address: [facility] [address] [place] [address] Care Teams Ecmo Specialist Relationship Specialty Start Date End Date Marvin Gibbs FNP [address] [place] [address] PCP - General Family Medicine, CLERICAL ADMINISTRATIVE ASSISTANT 08/10/17
--- OUTSIDE RECORDS SUMMARY | 2024-10-27 13:57 | XMS_ITS | Clinical Summary ---
Author Organization [facility] Address [address] [place] [address] Care Team Providers Care Tab Builder Name Role Phone Jaime Franco MD Primary Care Provider Unava ilable Surgical History Surgery Date Site/Laterality Comments SECTION PROCEDURE: HISTORICAL Family History Medical History Relation Name Comments Other cancer Aunt 1 Hypertension Father Diabetes Paternal Grandmother Heart attack Uncle 1 Relation Name Status Comments Aunt 1 Aunt 2 Father Paternal Grandmother Uncle 1 Uncle 2 Social History Tobacco Use Types Packs/Day Years Used Date Smoking Tobacco: Never Alcohol Use Standard Drinks/Week Comments Yes 0 (1 standard drink = 0.6 oz pur e alcohol) Comments Unknown Sex and Gender Information Value Date Recorded Sex Assigned at Not on file Legal Sex Female 2:34 PM EST Gender Identity Not on file Sexual Orientation Not on file Obstetrics History Plan of Treatment Health Maintenance Due Date Last Done Comments Breast Cancer Screening 1974 Hepatitis B Vaccines (1 of 3 - 19+ 3-dose series) 1993 Cervical Cancer Screening: P ap Smear 1995 DTaP,Tdap,and Td Vaccines (2 - Td or Tdap) 08/15/2018 08/15/2008 Colorectal Cancer Screening: Colonoscopy 08/12/2022 Depression Screening 08/12/2022 HIV Screening 08/12/2022 Hepatitis C Screening 08/12/2022 Social Influencers of Health Screening 08/12/2022 Pneumococcal Vaccine: 50+ Ye ars (1 of 1 - PCV) 2024 Zoster Vaccines (1 of 2) 2024 COVID-19 Vaccine (2023-2 5 season) 2024 Influenza Vaccine (#1) 2024 HIB Vaccines Aged Out No longer eligi ble based on patient's age to complete this topic HPV Vaccines Aged Out No longer eligi ble based on patient's age to complete this topic Hepatitis A Vaccines Aged Out No long er eligible based on patient's age to complete this topic IPV Vaccines Aged Out No longer eligi ble based on patient's age to complete this topic MMR Vaccines Aged Out No longer eligi ble based on patient's age to complete this topic Meningococcal ACWY Vaccine Aged Out N o longer eligible based on patient's age to complete this topic Meningococcal B Vacine Aged Out No lo nger eligible based on patient's age to complete this topic Pneumococcal Vaccine: Pediat rics (0 to 5 Years) and At-Risk Patients (6 to 64 Years) Aged Out No longer eligi ble based on patient's age to complete this topic RSV Immunization Patients Un joseph 20 months Aged Out No longer eligible b ased on patient's age to complete this topic Varicella Vaccines Aged Out No longer eligible based on patient's age to complete this topic Advance Directives Documents on File Type Date Recorded Patient Radiosonde Specialist Expl anation Health Care Decision (hx) 08/23/2013 AD VALENZUELA DIRECTIVE Health Care Decision (hx) 08/23/2013 AD VALENZUELA DIRECTIVE Health Care Decision (hx) 08/17/2013 AD VALENZUELA DIRECTIVE Health Care Decision (hx) 08/17/2013 AD VALENZUELA DIRECTIVE Care Teams Tab Builder Relationship Specialty Start Date End Date Jaime Franco MD PCP - General 09/08/17
[2024-10-27 14:00] VITALS: BP 118/76; PULSE 62; O2SAT 99; BMI 51.0
--- NOTE | 2024-10-27 14:00 | A.OFFVIS_ITS ---
Vital Signs 10/27/24 14:00 Height 5 ft Weight 261 lb 3.964 oz BMI 51.0 BP 118/76 Blood Pressure Location Rt brachial Position Sitting Pulse 62 Pulse Source Pulse Oximeter Pulse Oximetry (%) 99 Oxygen Delivery Method Room Air Intake Visit Reasons: Asthma Allergies No Known Allergies Allergy (Verified 10/27/24 14:04) HPI Comments Details: The patient is a 49-year-old woman previously healthy who apparently about a year ago developed significant pneumonia and pneumonitis. At that time the patient was tested for COVID and she was negative. However after that she never felt the same. She continues to have episodes of shortness of breath. Her shortness of breath episodes happen suddenly in the can be moderate to severe. She has been evaluated in the ER at [facility] multiple times. The patient has had repeat x-rays without any acute disease. Her symptoms have been very debilitating. Will do a workup at this time looking for etiologies for pneumonitis. 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 Recently did did get him a dehumidifier. In the meantime the patient also had daytime drowsiness. She has significant episodes which she wakes up at nighttime. Her [place] score is elevated 12/24. The patient will need to undergo a sleep study at this time as well. In addition to that did appears to have some degree of upper airway obstruction which could be secondary to vocal cord dysfunction that she be further addressed later on. 12/23/2022 the patient is here for a pulmonary follow-up visit. She is still struggling with the CPAP. She is wearing the nasal mask. However, has significant air leakage therefore resulting in dry mouth and not able to tolerated. We did download the machine and appears that her AHI is down to about 3.5. The patient was provided with F 30 small mask in order for her to tolerate a fullface mask and avoid the air leak is through the mouth. The patient understands that she does use it every night for 4 hours so she can get the best effect specially since she is still very tired with an elevated [place] score of 11/24. The patient is also complaining of significant lower extremity edema. She is trying to walk and exercise. She is trying to minimize salt intake. I will go ahead and send her additional diuretics at least 3-5 days. However, it appears to be more myxedema since is nonpitting. The patient should follow-up with her primary care doctor. I did request that she can call her primary care doctor's office to make an appointment to be further evaluated for the possibility of myxedema. She continues her respiratory medications with good effect. She has not required any prednisone or rescue inhaler. Will continue with current respiratory regimen at this time. 09/09/2023 the patient is here for a pulmonary follow-up visit. The patient is not feeling well at all. Still has significant chest pain, but overall better on the current therapy. Her shortness of breath is also better. Her lower extremity is worse, but appears to be more lymphaedema. The patient is out of her diuretic. At this point the diuretics will be helpful just to get some volume off her and hopefully this will allow her to feel better. She may also have either a inflammatory arthritis or need to consider fibromyalgia as a possibility. She did have an elevated HERNESTO in the past. Will go ahead and repeat that. The meantime will try some Plaquenil to see if this helps her. W ill just do a for a month. The patient may benefit from a Rheumatology consultation to further address her symptoms if her pulmonary evaluation is reassuring. 12/17/2023 the patient is here for pulmonary follow-up visit. The patient is feeling little better. She did go to the lymphedema clinic and she found it very helpful. She is frustrated with diagnosis but she is trying to make things better for herself. The patient did take some diuretics as needed. However it does make her feel tired and weak and therefore she does not like to take it much. the patient has been using her CPAP for the last 4 days. She is found it affecting beneficial. I did download the data and appears that her AHI is below one which is reassuring. Although right now she has no longer active from the [employer] standpoint because she has not used in a while. She will need another sleep study in order to get activated again. She does have significant daytime drowsiness and significant lower extremity edema specially she does not use CPAP. Her [place] score when she was not using the CPAP was up to 09/05. Therefore, now that she is using CPAP she should start feeling better. Will go ahead and repeat her sleep study in order for her to go to get active with the [employer] and be able to get supplies and avoid using equipment that is contaminated. 01/13/2024 the patient is here for pulmonary follow-up visit. The patient overall been doing well. She has been using the CPAP. The CPAP therapy has been affecting beneficial. She does try to use it more than 4 hours a night. Some nights she still has a hard time because she has insomnia. I did explain to her that she needs to use the 4 hours to qualify. Her AHI is below 5 which is reassuring. In addition to that we did talk about her dietary indiscretions. She needs to make sure she maintains a low-sodium diet because lymphedema. Will go ahead and keep her on the Lasix although she will need to have blood work today and also in 3 months' time when she comes back. Will hold off on the Plaquenil explained to her that has adverse effects and I do not believe she needs it. She continue with current respiratory therapy. Will follow-up in 3 months. 10/27/2024 the patient is here for a pulmonary follow-up visit. Overall the patient has been doing well. She has been tolerating the CPAP as much as possible. CPAP therapy has been affecting beneficial. She has been better. She is working with the lymphedema. She is trying holistic approaches. She is working on weight loss. Now she has a biopsy scheduled for her thyroid. She continues her respiratory therapy with good effect. Will plan to follow-up in 4-6 months. [facility] Medical History (Updated 09/20/24 @ 15:31 by Elina Herring MD) Thyroid nodule Anemia PONV (postoperative nausea and vomiting) History of endometriosis Lymphedema Chest pain Asthma-COPD overlap syndrome Epigastric pain Pneumonia Asthma BRENNA (obstructive sleep apnea) Dyspnea Pneumonitis Paget disease of bone Vitamin D deficiency Elevated alkaline phosphatase level Abdominal adhesions Tubal ligation evaluation Surgical History History of partial hysterectomy H/O cervical polypectomy History of appendectomy H/O lithotripsy History of renal stent Family History Father BRENNA (obstructive sleep apnea) HTN (hypertension), benign Mother Osteoporosis HTN (hypertension), benign Paternal Grandmother Stomach cancer Maternal Grandmother Lung cancer Paternal Aunt Colon cancer Other Family history of arthritis Social History Household Members: Children Alcohol intake: current Alcohol intake frequency: holidays/special occasions only Alcohol type: wine Patient Tobacco Use Status: Never used Tobacco e-Cigarette/Vaping Use: Never Used Second Hand Smoke Exposure: No service: No Current occupational status: employed Current occupation: N Cognitive needs: No Hearing needs: No Vision needs: No Review of Systems Const Reports difficulty sleeping and Denies night sweats ENT Reports Normal hearing present, Denies change in voice, Denies lip swelling, Denies mouth pain, Reports nasal congestion, Reports nasal discharge and Denies tongue swelling Card Denies chest pain and Reports leg edema Resp Denies chest congestion, Reports cough, Denies stridor and Denies wheezing GI Reports no additional complaints Musc Denies no additional complaints Neuro Reports Normal hearing present, Denies Neuro-related abnormal movements and Denies Abnormal speech present Psych Denies no additional complaints David/Lymph Denies easy bleeding and Denies lymphadenopathy Aller/Immun Denies lip swelling, Denies tongue swelling and Denies wheezing Physical Exam Vital Signs: Last Vital Signs Pulse 62 10/27/24 14:00 BP 118/76 10/27/24 14:00 Pulse Ox 99 10/27/24 14:00 Oxygen Delivery Method Room Air 10/27/24 14:00 BMI result Body Mass Index 51.0 Const General: alert Neck Neck: Yes normal visual inspection, Yes full ROM and Yes no lymphadenopathy Chest Chest palpation & inspection: normal inspection of the chest Resp Effort & Inspection: normal respiratory effort Auscultation: diminished lung sounds Cardio Rate: regular rate Rhythm: regular rhythm Heart sounds: S1 normal heart sound present and S2 normal heart sound present General: Yes no CVA tenderness Back/Spine/Pelvis Back: no CVA tenderness Neuro Cranial nerves: Yes Normal hearing present Speech: No Abnormal speech present Extrem General: Yes edema (non pitting) Assessment & Plan Assessment & Plan (1) Asthma: Code(s): J45.909 - Unspecified asthma, uncomplicated Category: Medical Qualifiers: Asthma complication type: uncomplicated Asthma persistence: persistent Asthma severity: moderate Qualified Code(s): J45.40 - Moderate persistent asthma, uncomplicated (2) BRENNA (obstructive sleep apnea): Code(s): G47.33 - Obstructive sleep apnea (adult) (pediatric) Category: Medical (3) Dyspnea: Code(s): R06.00 - Dyspnea, unspecified Category: Medical Qualifiers: Dyspnea type: dyspnea on exertion Qualified Code(s): R06.09 - Other forms of dyspnea (4) Chest pain: Code(s): R07.9 - Chest pain, unspecified Category: Medical Qualifiers: Chest pain type: unspecified Qualified Code(s): R07.9 - Chest pain, unspecified (5) Lymphedema: Code(s): I89.0 - Lymphedema, not elsewhere classified Category: Medical (6) Thyroid nodule: Code(s): E04.1 - Nontoxic single thyroid nodule Category: Medical Plan: 49-year-old female here today for initial evaluation of left isthmus solitary thyroid nodule. Ultrasound from June 2024 showed a solitary left isthmus 1.6 cm nodule. Patient does have some degree of compressive symptoms. Unlikely that it is related to her nodule because the nodule is so small the she has tenderness of the exact spot where I can feel her nodule. Labs normal from June 2024 but she does complain of increased tiredness. We will recheck thyroid function. Thyroid ultrasound done 06/27/2024, I reviewed the images myself showed a left isthmus 1.6 cm solid, hypoechoic nodule, not taller than wide, no punctate echogenic foci. TR 4 category. Per ROB guidelines this is a low suspicion nodule with 5-10% chance of malignancy however given that greater than 1.5 cm in size, meets criteria for FNA. I explained that it is common to have thyroid nodules. About 95% of the time these nodules are benign. However if the nodule is > 1 cm in size or suspicious on ultrasound then a fine need aspiration biopsy is recommended. We discussed that a FNAB involves 4-5 passes with a small gauge needle and material obtained is sent off for cytology.If the cytopathology is benign then the nodule will be followed annually with repeat ultrasounds. However if it is suspicious or malig nant, we will need to discuss further management. Indeterminate cytology can be further investigated with repeat FNA, genetic testing or empiric lobectomy. Malignant cytology is managed with either lobectomy or total thyroidectomy. We discussed briefly that thyroid cancer is, in most patients, an indolent disease that does not affect mortality. We will arrange for FNA of the left isthmus 1.6 cm thyroid nodule at next available opening and patient will follow up with me in clinic thereafter for results and further decision making. Plan: -ordered TSH, free T4 -scheduled for FNA of the left isthmus 1.6 cm nodule and follow up 2 weeks after to discuss results (7) Pre-op chest exam: Code(s): Z01.811 - Encounter for preprocedural respiratory examination Category: Medical Plan continue CPAP, needs to use it 4 hours or more. Will try a f30 small mask. symbicort/spiriva short-acting beta agonist as needed melatonin for sleep low Na diet follow-up in 6 months Coding Level of Care Code Est Pt Level 4 (28020) Diagnoses Moderate persistent asthma without complication J45.40 Asthma complication type: uncomplicated Asthma persistence: persistent Asthma severity: moderate BRENNA (obstructive sleep apnea) G47.33 Dyspnea on exertion R06.09 Dyspnea type: dyspnea on exertion Chest pain, unspecified type R07.9 Chest pain type: unspecified Lymphedema I89.0 Thyroid nodule E04.1 Pre-op chest exam Z01.811 Time Spent (min) 16
== END 2024-10-27 14:22 | disposition home or self-care (01) ==
PROVIDERS: PCP Nurse Practitioner Family; Visit Provider Hospitalist
DX: J45.40 Moderate persistent asthma, uncomplicated (principal); G47.33 Obstructive sleep apnea (adult) (pediatric); R06.09 Other forms of dyspnea; R07.9 Chest pain, unspecified; I89.0 Lymphedema, not elsewhere classified; E04.1 Nontoxic single thyroid nodule; Z01.811 Encounter for preprocedural respiratory examination
CPT/HCPCS: 99214

== ENCOUNTER → 2024-10-27 13:56 | Outpatient (BNVA) | payer OTHER, SELFPAY | PROVIDERS: PCP Nurse Practitioner Family; Visit Provider Hospitalist | DX: Z01.811 Encounter for preprocedural respiratory examination (principal); J45.40 Moderate persistent asthma, uncomplicated; G47.33 Obstructive sleep apnea (adult) (pediatric); R06.09 Other forms of dyspnea; E04.1 Nontoxic single thyroid nodule; I89.0 Lymphedema, not elsewhere classified; R07.9 Chest pain, unspecified; Z99.89 Dependence on other enabling machines and devices | CPT/HCPCS: 99212 ==

== ENCOUNTER 2024-11-08 08:41 | Outpatient (REF) | payer OTHER, SELFPAY ==
--- OUTSIDE RECORDS SUMMARY | 2024-11-08 09:20 | XMS_ITS | Clinical Summary ---
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
--- OUTSIDE RECORDS SUMMARY | 2024-11-08 09:20 | XMS_ITS | Clinical Summary ---
Author Organization [facility] Address [address] [place] [address] Care Team Providers Care Printed Circuit Boards Solder Leveler Name Role Phone Marvin Gibbs SPIRAL MACHINE OPERATOR Primary Care Provider [phone] Source Comments PLEASE NOTE, if this patient [...] 10/21/2017 Imm-Zoster, Recombinant (1 of 2) 2024 [id number] ( season) 2024 08/29/2022, 06/05/2021, 05/08/2021 Imm-Influenza [...] EST) GLUCOSE 99 70 - 100 mg/dL [facility] Comment:Reference range appl icable to fasting specimens only BUN 9 5 - 25 mg/dL [facility] CREAT 0.77 0.5 - 1.1 mg/dL [facility] GLOMERULAR FILTRATION RATE > 60 [facility] Comment: If patient is -Ukrainian, multiply result by 1.21 Chronic Kidney Disease: < 60 ml/min/1.73 square meters Kidney Failure: < 15 ml/min/1.73 square meters SODIUM 138 133 - 145 mmol/L [facility] POTASSIUM 4.1 3.5 - 5.5 mmol/L [facility] CHLORIDE 104 96 - 110 mmol/L [facility] CO2 29 21 - 32 mmol/L [facility] ANION GAP 5 3 - 11 [facility] CALCIUM 9.3 8.5 - 10.5 mg/dL [facility] TOTAL PROTEIN 7.4 6.0 - 8.0 G/dL [facility] ALBUMIN 3.6 3.2 - 5.0 G/dL [facility] BILI, TOTAL 0.2 0.0 - 1.4 mg/dL [facility] SGOT 26 10 - 42 U/L [facility] SGPT 41 10 - 60 U/L [facility] ALK PHOS 193(H) 42 - 121 U/L [facility] Blood specimen (specimen) Blood / Unknown 10/21/2017 2:38 PM EST 10/21/2017 2:53 PM EST Narrative [facility] - 10/21/2017 6:26 PM EST [facility] [address] [place] [address] PT ID [id number] ORD# [id number] Marvin [facility] - BLOOD DRAW Final Result [facility] [address] [place] [address], from Last 3 Months or Most Recently Relevant to Health Maintenance Insurance [facility] [employer] PL[employer] Member Subscriber Plan / Payer (Ef fective 2022-Present) Name:Rudy Floresy Relation to Subscriber:Self Name:Rudy Floresy Payer ID:[id number] Group ID:[id number] Type:Medicaid Address: [facility] [address] [place] [address] Care Teams Printed Circuit Boards Solder Leveler Relationship Specialty Start Date End Date Marvin Gibbs FNP [address] [place] [address] PCP - General Family Medicine, COOL ROOFING INSTALLER 08/10/17
--- NOTE | 2024-11-08 09:28 | PM.PROC ---
Brief Operative Note Date of procedure: 11/08/24 Pre-op diagnosis: 1.6 cm isthmus thyroid nodule FNA biopsy Post-op diagnosis: same Procedure: THYROID FINE NEEDLE ASPIRATION PROCEDURE NOTE ? PROCEDURE PERFORMED: Ultrasound-guided FNA of thyroid nodule ? OPERATORS: Dr. Elina Herring ? INDICATION: 1.6 cm isthmus thyroid nodule ; FNA performed to assess for malignancy ? DESCRIPTION OF PROCEDURE: The indications for FNA (to assess for malignancy) were reviewed with the patient in detail. Potential complications (e.g., bleeding, infection, damage to local structures, absence of clear diagnosis after FNA) were reviewed. Alternatives to FNA including conservative observation or surgery were described. The patient understood and agreed to proceed. This was documented by the signing of the written informed consent form. A time-out was performed to confirm the patient's identity and the site of planned FNA. The nodule of interest was identified using ultrasound (14 MHz linear array probe). The site of FNA was then draped in the usual fashion and carefully cleaned and prepared using alcohol swabs. The skin at the previously-identified site of needle insertion was iced and sprayed with numbing spray. Under ultrasound guidance, _4_ passes were performed using a 1.5-inch, 25-gauge needle, and sample was obtained via capillary action. The needle tip was clearly visualized to be within the nodule at the time of sampling for 4__ of _4_ passes The patient tolerated the procedure well. There were no immediate complications. A small adhesive bandage was applied, and the patient was advised to take acetaminophen (rather than NSAIDs) for any discomfort and to report any signs of inflammation/infection or marked swelling. IMPRESSION: Technically successful ultrasound-guided fine needle aspiration of 1.6 cm isthmus thyroid nodule. PLAN: The patient was advised that I will provide follow-up regarding the cytology result and any subsequent plans. Elina Herring MD Endocrinology Attending Condition: stable Disposition: same day
== END 2024-11-08 08:42 | disposition home or self-care (01) ==
LOC: HO.US 08:41
PROVIDERS: PCP Nurse Practitioner Family; Visit Provider Student in an Organized Health Care Education/Training Program
DX: E04.1 Nontoxic single thyroid nodule (principal)
CPT/HCPCS: 10005; 88173

== ENCOUNTER → 2024-11-08 08:41 | Outpatient (BNV) | payer OTHER, SELFPAY | PROVIDERS: PCP Nurse Practitioner Family; Visit Provider Student in an Organized Health Care Education/Training Program | DX: E04.1 Nontoxic single thyroid nodule (principal) | CPT/HCPCS: 10005 ==

== ENCOUNTER 2024-12-07 13:50 | Outpatient (AMB) | payer OTHER, SELFPAY ==
[2024-12-07 13:54] VITALS: BP 118/56; PULSE 65; BMI 51.5
--- NOTE | 2024-12-07 13:54 | MHC.OFFVIS ---
Vital Signs 12/07/24 13:54 Height 5 ft Weight 263 lb 10.766 oz BMI 51.5 BP 118/56 L Blood Pressure Location Lt brachial Position Sitting Pulse 65 Intake Visit Reasons: colo screening Intake Note: Patient in office today for colonoscopy screening. CC: Patient states I'm always constipated , and that she has seen blood in stool in the past. Patient reports nausea once in a while and a lot of acid reflux and heartburn. She also states trouble swallowing because she has a nodule in her thyroid. Neurologist Required: No Accompanied by: Self / Same As Patient Allergies No Known Allergies Allergy (Verified 12/07/24 14:05) HPI HPI colo screening: Details: PATIENT I HAD seen in the past for constipation but has not been seen by this practice since 2021 is now presenting for a screening colonoscopy. She is referred by Ko Byers PMX Morbid obesity Diabetes Asthma BRENNA Paget's disease Nephrolithiasis Chronic idiopathic constipation GERD ADAMS Thyromegaly Chronic widespread pain Endometriosis * SURGICAL HISTORY Total hysterectomy Appendectomy Lithotripsy Renal stent Cervical polypectomy * ALLERGIES: NKDA * [email or web address] LABS: Laboratory Tests 08/18/24 09/20/24 15:46 16:00 WBC 11.0 H Hgb 13.9 Hct 43.6 MCV 75.4 L MCH 24.0 L Plt Count 297 Estimated GFR > 60 Total Bilirubin 0.3 AST 31 ALT 40 H Alkaline Phosphatase 243 H TSH 1.75 TODAY'S VISIT She is really struggling with lymphedema of unknown origin that is very painful in her legs. She also just went through a hyst for severe endometriosis. Since her hyst she has struggles wtih CIC, she is using OTC laxatives but there is a delayed effect. SHe uses senna, dulcolax, colace, fiber, miralax and lactulaose w/o good effect and she is bloated. Did well on Linzess in the past but had co insurance cost problems. Will 72mcg and titrate. Her asthma and BRENNA are controlled and she denies cardiac problems. She had no anesthesia problems with her hysterectomy. NO ID problems. Her paternal aunt of CRC later in life and her father had polyps. ROV next available. COUNT INCLUDES [facility] Medical History (Updated 12/07/24 @ 14:15 by CLAU Linder) Screening for colon cancer Thyroid nodule Anemia PONV (postoperative nausea and vomiting) History of endometriosis Lymphedema Chest pain Asthma-COPD overlap syndrome Epigastric pain Pneumonia Asthma BRENNA (obstructive sleep apnea) Dyspnea Pneumonitis Paget disease of bone Vitamin D deficiency Elevated alkaline phosphatase level Abdominal adhesions Tubal ligation evaluation Surgical History History of partial hysterectomy H/O cervical polypectomy History of appendectomy H/O lithotripsy History of renal stent Family History Father BRENNA (obstructive sleep apnea) HTN (hypertension), benign Mother Osteoporosis HTN (hypertension), benign Paternal Grandmother Stomach cancer Maternal Grandmother Lung cancer Paternal Aunt Colon cancer Other Family history of arthritis Social History Household Members: Children Alcohol intake: current Alcohol intake frequency: holidays/special occasions only Alcohol type: wine Patient Tobacco Use Status: Never used Tobacco e-Cigarette/Vaping Use: Never Used Second Hand Smoke Exposure: No service: No Current occupational status: employed Current occupation: N Cognitive needs: No Hearing needs: No Vision needs: No Review of Systems Const Denies fatigue, Denies fever(s), Denies night sweats, Denies poor appetite, Reports weight gain and Denies weight loss ENT Reports Normal hearing present, Denies dental pain, Denies dysphagia, Denies hearing loss, Denies mouth pain, Denies odynophagia, Denies throat swelling, Denies tongue swelling and Reports other (Dentition adequate) Card Denies chest pain, Reports leg edema and Denies lightheadedness Resp Reports no additional complaints GI Details: Denies abdominal pain, Denies melena, Denies bloating, Denies hematochezia, Reports constipation, Denies GI cramping, Denies dysphagia, Denies excessive flatus, Denies early satiety, Denies heartburn, Denies diarrhea, Denies nausea, Denies odynophagia, Denies vomiting and Denies hematemesis Skin/Breast Denies pruritus, Denies lesions, Denies rash, Reports unusual bruising and Denies jaundice Neuro Reports Normal hearing present and Denies Abnormal speech present Psych Reports anxiety Endo Denies fatigue Aller/Immun Denies throat swelling and Denies tongue swelling Physical Exam Vital Signs: Last Vital Signs Pulse 65 12/07/24 13:54 BP 118/56 L 12/07/24 13:54 BMI result Body Mass Index 51.5 Const General: cooperative, no acute distress, well developed and well groomed Nutritional Appearance: well nourished and obese Orientation/consciousness: oriented to person, oriented to place and oriented to time Limitations: No language barrier HEENT Head: Yes normocephalic and Yes atraumatic Eyes General: appearance normal, both eyes and all related structures Pupils: Equal, round and reactive pupils present Neck Neck: Yes normal visual inspection and Yes no lymphadenopathy Thyroid: Thyroid normal Resp Effort & Inspection: normal respiratory effort and able to speak in complete sentences Auscultation: clear to auscultation bilaterally Cardio Rate: regular rate Rhythm: regular rhythm Heart sounds: Normal, physiologic split S2 sound present Peripheral pulses: radial pulses present and posterior tibial pulses present GI Inspection: No distended, Yes Abdominal panniculus present and Yes obesity Palpation (GI): Soft to palpation, nontender, no guarding, not rigid and No hepatosplenomegaly present Percussion: Yes normal to percussion Auscultation: normal bowel sounds Rectal Exam - Female: deferred Abdomen image: 1. surgical scars Skin General skin exam: no rashes or lesions noted, turgor normal, skin not dry, no jaundice, No spider nevi and no striae Rashes: no rashes Nails: normal Neuro General: oriented to person, oriented to place and oriented to time Cranial nerves: Yes Equal, round and reactive pupils present and Yes Normal hearing present Speech: No Abnormal speech present Extrem General: Yes normal to inspection, No clubbing, No cyanosis and Yes edema Psych Appearance: grossly normal and well kempt Mental Status: mental status grossly normal Speech and movement: Normal speech and movement present Affect: normal affect Attitude: cooperative Thought process: Normal thought process present and not confabulating Thought content: Normal thought content present Insight: Limited insight present (Psych) Judgement: Limited judgement present (Psych) Assessment & Plan Assessment & Plan (1) Pre-op evaluation: Code(s): Z01.818 - Encounter for other preprocedural examination Category: Medical (2) Chronic idiopathic constipation: Code(s): K59.04 - Chronic idiopathic constipation Category: Medical Plan She is really struggling with lymphedema of unknown origin that is very painful in her legs. She also just went through a hyst for severe endometriosis. Since her hyst she has struggles wtih CIC, she is using OTC laxatives but there is a delayed effect. SHe uses senna, dulcolax, colace, fiber, miralax and lactulaose w/o good effect and she is bloated. Did well on Linzess in the past but had co insurance cost problems. Will 72mcg and titrate. Her asthma and BRENNA are controlled and she denies cardiac problems. She had no anesthesia problems with her hysterectomy. NO ID problems. Her paternal aunt of CRC later in life and her father had polyps. ROV next available. Orders: Orders Colonoscopy - GI Use Only Today Z01.818 - Encounter for other preprocedural examination Medications: New linaclotide (Linzess) 72 mcg PO QAM 30 caps 6RF K59.04 - Chronic idiopathic constipation sodium,potassium,mag sulfates 17.5-3.13-1.6 gram (Suprep Bowel Prep Kit) 480 mL orally; FOR COLONOSCOPY PREP 354 mL 0RF Coding Level of Care Code Est Pt Level 4 (23424) Diagnoses Pre-op evaluation Z01.818 Chronic idiopathic constipation K59.04
== END 2024-12-07 14:35 | disposition home or self-care (01) ==
LOC: HO.HGI 13:51
PROVIDERS: PCP Nurse Practitioner Family; Visit Provider Nurse Practitioner
DX: Z01.818 Encounter for other preprocedural examination (principal); Z12.11 Encounter for screening for malignant neoplasm of colon; K59.04 Chronic idiopathic constipation
CPT/HCPCS: 99212

== ENCOUNTER → 2024-12-07 13:50 | Outpatient (BNVA) | payer OTHER, SELFPAY | PROVIDERS: PCP Nurse Practitioner Family; Visit Provider Nurse Practitioner | DX: Z01.818 Encounter for other preprocedural examination (principal); K21.9 Gastro-esophageal reflux disease without esophagitis; K59.04 Chronic idiopathic constipation | CPT/HCPCS: 99212 ==

== ENCOUNTER 2025-01-18 10:52 | Outpatient (AMB) | payer OTHER, SELFPAY ==
[2025-01-18 10:55] VITALS: BP 112/68; PULSE 68; O2SAT 98; BMI 51.9
--- NOTE | 2025-01-18 10:55 | A.OFFPC_ITS ---
Vital Signs 01/18/25 10:55 Height 5 ft Weight 266 lb BMI 51.9 BP 112/68 Blood Pressure Location Rt brachial Position Sitting Pulse 68 Pulse Source Pulse Oximeter Pulse Oximetry (%) 98 Oxygen Delivery Method Room Air Intake Visit Reasons: Annual PE Cardiothoracic Icu Rn Required: No Accompanied by: Self / Same As Patient Allergies No Known Allergies Allergy (Verified 01/18/25 10:56) Medication List - Last Reconciled 01/18/25 by Ko Byres, [facility] albuterol sulfate 90 mcg/actuation 2 inhalations inhalation DAILY PRN 30 days albuterol sulfate 2.5 mg (3 mL) inhalation Q6H PRN 30 days apple cider vinegar mg PO bisacodyl (Dulcolax (bisacodyl)) 10 mg orally 2 TABS QHS AND 1 QAM; CPAP (CPAP Machine/Device) As directed docusate sodium 100 mg PO BID PRN estradiol 0.01%(0.1mg/gram) vaginal famotidine 40 mg PO BEDTIME PRN 30 days nbconeldqwz-dvbccslru-hrpjujxy 200-62.5-25 mcg (Trelegy Ellipta) 1 inh inhalation DAILY 30 days hydroxychloroquine (Plaquenil) 200 mg PO DAILY 30 days linaclotide (Linzess) 72 mcg PO QAM nebulizers As directed sertraline 100 mg PO DAILY PRN Symbicort 160-4.5 mcg/actuation (budesonide-formoterol) 2 puffs inhalation BID 30 days NS tiotropium bromide 2.5 mcg/actuation (Spiriva Respimat) 2 puffs inhalation DAILY 90 days turmeric mg PO Tobacco use date assessed: 01/18/25 Dental Screening Dental Screen Date: 01/18/25 Did you have a dental visit in the last 12 months?: Yes Did you have a dental problem in the last 6 months where you did not have access to dental care?: No Was dental information given to patient?: Patient has dentist HPI Annual PE HPI Details History of Present Illness The patient is a 49-year-old female presenting for a physical examination and assessment of her chronic conditions. She has a chronic history of lymphedema in the lower extremities, maintaining a stable but bothersome presence. Additionally, she confronts challenges related to morbid obesity. Consideration of a GLP-1 agonist as a therapeutic intervention for weight loss is being explored, contingent upon insurance approval. The patient also manages a thyroid nodule under the guidance of endocrinology. Overall, she reports stable health except for the issues detailed. 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 Social History Review of Systems - Lymphatic: Reports chronic lymphedema in the lower extremities - Endocrine: Reports history of thyroid nodule; under endocrinology care denies any cp, increased sob, blood in stool, fevers, chills, SI or HI Physical Exam General: Cooperative, healthy appearing, comfortable, no acute distress and well developed, morbidly obese Orientation: Patient oriented x3 Limitations: No limitations Head: Normal to inspection Ears: Hearing grossly normal bilaterally Nose: Normal external nose present Face and sinus: Normal facial exam Eyes: Appearance normal, both eyes and all related structures Neck: Normal visual inspection and Yes full ROM, large left thyroid nodule Respiratory: Normal respiratory effort and able to speak in complete sentences. Clear to auscultation bilaterally Cardiovascular: Regular rate and rhythm. Normal S1 and S2 GI: Normal to inspection. Soft to palpation and nontender Skin: No rashes or lesions noted Neuro: Patient oriented x3 Extremities: Chronic lymphedema to bilateral lower extremities Results Plan I will direct the patient to a lymphedema clinic to pursue treatment that may alleviate the swelling and discomfort attributed to her chronic condition. She should contact her insurance to determine coverage for a GLP-1 agonist for her obesity, which presents potential health benefits if approved. Continuous coordination with her heavy duty diesel mechanic for the thyroid nodule is essential to ensure optimal management of her endocrinological health. Discussion Notes I discussed with the patient her current health issues, including the significant impact of her lymphedema and the importance of further treatment through a specialized lymphedema clinic. Moreover, I addressed the potential use of a GLP-1 agonist for obesity management, highlighting the benefits of weight loss on her overall health. She was urged to consult her insurance provider to confirm prescription coverage. We also confirmed her ongoing care with an heavy duty diesel mechanic for her thyroid nodule. Anticipatory guidance on these topics and the necessity for close follow-ups were emphasized. Patient Instructions - Follow up with the lymphedema clinic f or evaluation and treatment. - Contact your insurance provider to margret ck if they cover a GLP-1 agonist for weight management. - Continue your care with the endocrinol ogist for your thyroid nodule. - No changes in your mammogram schedule. Prepare for your upcoming colonoscopy. [facility] Medical History Screening for colon cancer Thyroid nodule Anemia PONV (postoperative nausea and vomiting) History of endometriosis Lymphedema Chest pain Asthma-COPD overlap syndrome Epigastric pain Pneumonia Asthma BRENNA (obstructive sleep apnea) Dyspnea Pneumonitis Paget disease of bone Vitamin D deficiency Elevated alkaline phosphatase level Abdominal adhesions Tubal ligation evaluation Surgical History History of partial hysterectomy H/O cervical polypectomy History of appendectomy H/O lithotripsy History of renal stent Family History Father BRENNA (obstructive sleep apnea) HTN (hypertension), benign Mother Osteoporosis HTN (hypertension), benign Paternal Grandmother Stomach cancer Maternal Grandmother Lung cancer Paternal Aunt Colon cancer Other Family history of arthritis Social History Household Members: Children Alcohol intake: current Alcohol intake frequency: holidays/special occasions only Alcohol type: wine Patient Tobacco Use Status: Never used Tobacco e-Cigarette/Vaping Use: Never Used Second Hand Smoke Exposure: No service: No Current occupational status: employed Current occupation: N Cognitive needs: No Hearing needs: No Vision needs: No Questionnaire PHQ-9 Over the last 2 weeks, how often have you been bothered by any of the following problems? 1. Little interest or pleasure in doing things: several days 2. Feeling down, depressed, or hopeless: several days 3. Trouble falling or staying asleep, or sleeping too much: several days 4. Feeling tired or having little energy: several days 5. Poor appetite or overeating: several days 6. Feeling bad about yourself - or that you are a failure or have let yourself or your family down: several days 7. Trouble concentrating on things, such as reading the newspaper or watching television: several days 8. Moving or speaking so slowly that other people could have noticed. Or the opposite - being so fidgety or restless that you have been moving around a lot more than usual: several days 9. Thoughts that you would be better off or of hurting yourself in some way: not at all Total score: 8 Depression Screening Interpretation: Positive Depression Screening Done: Yes 66248 - PHQ-9 Billing: Yes Source: Developed by Drs. Pee Davey, Rosalie Powers, Max Erwin and colleagues, with an educational siddharth from [employer]. Thrive Questionnaire Date Thrive assessed: 01/18/25 I am a: Patient What is your living situation today?: I have a steady place to live Within the past 12 months, did the food you bought not last and you didn't have the money to get more?: Never true Within the past 12 months, did you worry whether your food would run out before you got money to buy more?: Never true Do you have trouble paying for medicines?: No Do you have trouble getting transportation to medical appointments?: No Do you have trouble paying your heating and electricity bill?: No Do you have trouble taking care of your child, family member or friend?: No Do you have trouble with day-to-day activities such as bathing, preparing meals, shopping, managing finances, etc.?: Yes Are you currently unemployed and looking for a job?: Yes Are you interested in more education?: No Please select the resources that you would like help with: Daily support Currently or been in a relationship where the following occur: No concerns reported THRIVE Score: 0 AUDIT C Alcohol Use Questionnaire (AUDIT-C) 1. How often do you have a drink containing alcohol?: Monthly or less 2. How many drinks containing alcohol do you have on a typical day when you are drinking?: 3 or 4 3. How often do you have six or more drinks on one occasion?: Monthly Total Score: 4 Score Reviewed/Action Taken: Yes SEAN-7 AMB Questionnaire SEAN-7 Date SEAN - 7 assessed: 01/18/25 Feeling nervous, anxious, or on edge: 1 = Several days Not being able to stop or control worryin = Several days Worrying too much about different things: 1 = Several days Trouble relaxin = Several days Being so restless that it is hard to sit still: 1 = Several days Becoming easily annoyed or irritable: 1 = Several days Feeling afraid as if something awful might happen: 0 = Not at all Total SEAN-7 score (0-4 normal; 5-9 mild; 10-14 moderate; 15-21 severe): 6 Source: Developed by Drs. Pee Davey, Rosalie Powers, Max Erwin and colleagues, with an educational siddharth from [employer]. SEAN-7 Assessment Billing SEAN-7 Assessment Tool: SEAN-7 Assessment 12404 Physical exam (Primary Care) Vital Signs: Last Vital Signs Pulse 68 01/18/25 10:55 BP 112/68 01/18/25 10:55 Pulse Ox 98 01/18/25 10:55 Oxygen Delivery Method Room Air 01/18/25 10:55 BMI result Body Mass Index 51.9 Tobacco/Smoking Status: Tobacco use Status Tobacco use date assessed 01/18/25 01/18/25 10:57 Patient Tobacco Use Status Never used Tobacco 01/18/25 10:57 e-Cigarette/Vaping Use Never Used 01/18/25 10:57 PHQ-9: PHQ-9 Score PHQ-9: Total score 8 01/18/25 11:07 Depression Screening Interpretation: Positive Thrive Assessment: Date of Thrive Assessment Date Thrive assessed 01/18/25 01/18/25 10:57 Currently or been in a relationship where the following occur: No concerns reported Coding Level of Care Code Est Pt Prev Care 40-64y(19360) Diagnoses Encounter for routine adult physical exam with abnormal findings Z Lymphedema I89.0 Vitamin D deficiency E55.9 Additional Codes SEAN-7 Assessment Billing - SEAN-7 Assessment Tool: SEAN-7 Assessment 39626 ([id number]) PHQ-9 - 61268 - PHQ-9 Billing: Yes ([id number]) Assessment & Plan Assessment & Plan (1) Encounter for routine adult physical exam with abnormal findings: Code(s): Z00.01 - Encounter for general adult medical examination with abnormal findings Category: Medical (2) Lymphedema: Code(s): I89.0 - Lymphedema, not elsewhere classified Category: Medical (3) Vitamin D deficiency: Code(s): E55.9 - Vitamin D deficiency, unspecified Category: Medical Plan . Orders: Orders TSH reflex Free T4 Today Z00. - Encounter for general adult medical examination with abnormal findings Lipid Panel Today Z00.01 - Encounter for general adult medical examination with abnormal findings Vitamin D 25-OH Total Today E55.9 - Vitamin D deficiency, unspecified Complete Blood Count Auto Diff Today Z00.01 - Encounter for general adult medical examination with abnormal findings Comprehensive Hext. Panel Fast Today Z00.01 - Encounter for general adult medical examination with abnormal findings UA CC w/rflx Micro + Cult Today Z00.01 - Encounter for general adult medical examination with abnormal findings Referrals Open Access Screening Colonoscopy Referral Z12.11 - Encounter for screening for malignant neoplasm of colon, Z12.12 - Encounter for screening for malignant neoplasm of rectum Lymphedema Clinic Referral I89.0 - Lymphedema, not elsewhere classified
--- OUTSIDE RECORDS SUMMARY | 2025-01-18 12:24 | XMS_ITS | Clinical Summary ---
Author Organization [facility] Address [address] [place] [address] Care Team Providers Care Cloth Doubling Machine Operator Name Role Phone Marvin Gibbs ENVELOPE FOLDING MACHINE ADJUSTER Primary Care Provider [phone] Source Comments PLEASE NOTE, if this patient is a minor, it may be UNLAWFUL to discuss sensitive information that is contained in these records (such as FAMILY PLANNING, MENTAL HEALTH or SUBSTANCE ABUSE) with the minor patient's parent or other person without the patient's specific authorization.[facility] Allergies No known active allergies Immunizations Immunization Administration Dates Next Due MODERNA COVID-19 VACCINE [...] Health Maintenance Due Date Last Done Comments Anxiety Screening 1974 HPV Screening 1974 Hepatitis C Screening 1974 Lipid Screening 1974 Pap + HPV 1974 Tobacco Screening 1974 HIV Screening 1989 Imm-Hepatitis B (1 of 3 - 19 + 3-dose series) 1993 Cervical Cancer Screening 1995 Pap Smear 1995 Breast Cancer Screening (Mammogram) 2014 Imm-DTaP/Tdap/Td (2 - Td or Tdap) 08/15/2018 008 Hypertension Screening (#1) 10/21/2018 CT Colonography 2019 Colonoscopy 2019 Colorectal Cancer Screening 2019 FIT/gFOBT 2019 Fecal DNA 2019 Flexible Sigmoidoscopy 2019 Diabetes Screening 10/21/2020 10/21/2017 Imm-Zoster, Recombinant (1 of 2) 2024 [id number] ( season) 2024 08/29/2022, 06/05/2021, 05/08/2021 Imm-Influenza [...] EST) GLUCOSE 99 70 - 100 mg/dL [facility] Comment:Reference range appl icable to fasting specimens only BUN 9 5 - 25 mg/dL [facility] CREAT 0.77 0.5 - 1.1 mg/dL [facility] GLOMERULAR FILTRATION RATE > 60 [facility] Comment: If patient is -Romanian, multiply result by 1.21 Chronic Kidney Disease: < 60 ml/min/1.73 square meters Kidney Failure: < 15 ml/min/1.73 square meters SODIUM 138 133 - 145 mmol/L [facility] POTASSIUM 4.1 3.5 - 5.5 mmol/L [facility] CHLORIDE 104 96 - 110 mmol/L [facility] CO2 29 21 - 32 mmol/L [facility] ANION GAP 5 3 - 11 [facility] CALCIUM 9.3 8.5 - 10.5 mg/dL [facility] TOTAL PROTEIN 7.4 6.0 - 8.0 G/dL [facility] ALBUMIN 3.6 3.2 - 5.0 G/dL [facility] BILI, TOTAL 0.2 0.0 - 1.4 mg/dL [facility] SGOT 26 10 - 42 U/L [facility] SGPT 41 10 - 60 U/L [facility] ALK PHOS 193(H) 42 - 121 U/L [facility] Blood specimen (specimen) Blood / Unknown 10/21/2017 2:38 PM EST 10/21/2017 2:53 PM EST Narrative [facility] - 10/21/2017 6:26 PM EST [facility] [address] [place] [address] PT ID [id number] ORD# [id number] Marvin [facility] - BLOOD DRAW Final Result [facility] [address] [place] [address], from Last 3 Months or Most Recently Relevant to Health Maintenance Insurance [facility] [employer] Member Subscriber Plan / Payer (Ef fective 2022-Present) Name:Rudy Floresy Relation to Subscriber:Self Name:Rudy Floresy Payer ID:[id number] Group ID:[id number] Type:Medicaid Address: [facility] [id number] [place] [phone] Care Teams Cloth Doubling Machine Operator Relationship Specialty Start Date End Date Marvin Gibbs FNP [address] [place] [phone] PCP - General Family Medicine, STEAMING CABINET TENDER 08/10/17
--- OUTSIDE RECORDS SUMMARY | 2025-01-18 12:24 | XMS_ITS | Clinical Summary ---
Author Organization [facility] ity Address [address] [place] [address] Care Team Providers Care Head Filter Tank Tender Helper Name Role Phone Jaime Franco MD Primary [...] Vaccines (1 of 2) 2024 COVID-19 Vaccine ( - 2023-2 5 season) 2024 Influenza Vaccine (Season Ended) 2025 HIB Vaccines Aged Out No longer eligi [...] age to complete this topic Meningococcal B Vaccine Aged Out No l onger eligible based on patient's age to complete [...] Documents on File Type Date Recorded Patient Principal Automation Engineer Expl anation Health Care Decision (hx) 08/23/2013 AD VALENZUELA DIRECTIVE Health Care Decision (hx) 08/23/2013 AD VALENZUELA DIRECTIVE Health Care Decision (hx) 08/17/2013 AD VALENZUELA DIRECTIVE Health Care Decision (hx) 08/17/2013 AD VALENZUELA DIRECTIVE Care Teams Head Filter Tank Tender Helper Relationship Specialty Start Date End Date Jaime Franco MD PCP - General 09/08/17
== END 2025-01-18 11:43 | disposition home or self-care (01) ==
LOC: HO.HMCC 10:53
PROVIDERS: PCP Nurse Practitioner Family; Visit Provider Nurse Practitioner Family
DX: Z00.01 Encounter for general adult medical examination with abnormal findings (principal); I89.0 Lymphedema, not elsewhere classified; E55.9 Vitamin D deficiency, unspecified

== ENCOUNTER → 2025-01-18 10:52 | Outpatient (BNVA) | payer OTHER, SELFPAY | PROVIDERS: PCP Nurse Practitioner Family; Visit Provider Nurse Practitioner Family | DX: Z00.01 Encounter for general adult medical examination with abnormal findings (principal); I89.0 Lymphedema, not elsewhere classified; E04.1 Nontoxic single thyroid nodule; E55.9 Vitamin D deficiency, unspecified | CPT/HCPCS: 96127; 99396 ==

== ENCOUNTER 2025-03-21 10:18 | Outpatient (AMB) | payer OTHER, SELFPAY ==
[2025-03-21 10:19] VITALS: BP 106/76; PULSE 68; TEMP 36.7; O2SAT 97; BMI 51.6
--- NOTE | 2025-03-21 10:19 | AM.OFFWIN_ITS ---
Intake Vital Signs 03/21/25 10:19 Height 5 ft Weight 264 lb 2 oz BMI 51.6 BP 106/76 Blood Pressure Location Lt brachial Position Sitting Pulse 68 Pulse Source Pulse Oximeter Temp 98.1 F Temp Source Oral Pulse Oximetry (%) 97 Oxygen Delivery Method Room Air Intake Visit Reasons: EP lipedema on feet Intake Note: Patient present bilateral feet swelling. Patient has lipodema Patient Tobacco Use Status: Never used Tobacco Allergies No Known Allergies Allergy (Verified 03/21/25 10:24) Do you need a note to return to daycare/school/sports/work: Yes HPI HPI Comments History of Present Illness Details History - The patient is a 50-year-old female pr esenting with pain and swelling associated with lipedema and lymphedema. - The patient reports a history of liped millie and lymphedema, with swelling primarily in the legs and thighs, now extending to the feet, causing difficulty in finding fitting shoes. - The condition has been undiagnosed for three years, and the patient has been actively seeking appropriate medical care. - The patient has been evaluated at [facility] and is awaiting insurance approval for a manual pump to manage the condition. - Previous interventions include a fitti ng for a manual pump, which provided temporary relief. Physical Exam General: Cooperative, healthy appearing, comfortable, no acute distress and well developed Orientation: Patient oriented x3 Limitations: No limitations Head: Normal to inspection Ears: Hearing grossly normal bilaterally Nose: Normal External nose present Face and sinus: Normal facial exam Mouth: normal, moist oral mucosa Eyes: Appearance normal, both eyes and all related structures Neck: Normal visual inspection and Yes full ROM Respiratory: Normal respiratory effort and able to speak in complete sentences. Skin: no rashes or lesions noted Neuro: Patient oriented x3 Extremities: Swelling in legs, thighs, and feet noted. [facility], [facility] Medical History Screening for colon cancer Thyroid nodule Anemia PONV (postoperative nausea and vomiting) History of endometriosis Lymphedema Chest pain Asthma-COPD overlap syndrome Epigastric pain Pneumonia Asthma BRENNA (obstructive sleep apnea) Dyspnea Pneumonitis Paget disease of bone Vitamin D deficiency Elevated alkaline phosphatase level Abdominal adhesions Tubal ligation evaluation Surgical History History of partial hysterectomy H/O cervical polypectomy History of appendectomy H/O lithotripsy History of renal stent Family History Father BRENNA (obstructive sleep apnea) HTN (hypertension), benign Mother Osteoporosis HTN (hypertension), benign Paternal Grandmother Stomach cancer Maternal Grandmother Lung cancer Paternal Aunt Colon cancer Other Family history of arthritis Social History Household Members: Children Alcohol intake: current Alcohol intake frequency: holidays/special occasions only Alcohol type: wine Patient Tobacco Use Status: Never used Tobacco e-Cigarette/Vaping Use: Never Used Second Hand Smoke Exposure: No service: No Current occupational status: employed Current occupation: N Cognitive needs: No Hearing needs: No Vision needs: No Review of Systems Const All systems reviewed & are unremarkable except as noted in HPI and below Physical Exam Vital Signs: Last Vital Signs Temp 98.1 F 03/21/25 10:19 Pulse 68 03/21/25 10:19 BP 106/76 03/21/25 10:19 Pulse Ox 97 03/21/25 10:19 Oxygen Delivery Method Room Air 03/21/25 10:19 BMI result Body Mass Index 51.6 Assessment & Plan Assessment & Plan (1) Lipedema of lower extremity: Code(s): R60.0 - Localized edema Plan: Patient was informed and verbally consented to the use of an ambient scribe for clinic note documentation during this visit - The patient is advised to contact the clinic at [facility] for follow-up on the manual pump approval and further management of lipedema. This is not a condition we can help treat at the Walk In [facility]. Coding Level of Care Code Est Pt Level 3 (76595) Diagnoses Lipedema of lower extremity R60.0
--- OUTSIDE RECORDS SUMMARY | 2025-03-21 11:04 | XMS_ITS | Clinical Summary ---
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 Occupational Therapy [address] [address] Audrey Dias P, OTR/L Lymphedema, not elsewhere classified 02/01/2025 Plan of Care Documentation [facility] Occupational Therapy [address] [address] from Last 3 Months Surgical History Surgery Date Site/Laterality Comments SECTION [...] Done Comments Breast Cancer Screening 1974 Hepatitis A Vaccines (1 of 2 - Risk 2-dose series) 1993 Hepatitis B Vaccines (1 of 3 - 19+ 3-dose series) 1993 Cervical Cancer Screening: Pap Smear 1995 DTaP,Tdap,and Td Vaccines (2 - Td or Tdap) 08/15/2018 08/15/2008 Cholesterol Screening (Lipid Panel) 08/12/2022 Colorectal Cancer Screening: Colonoscopy 08/12/2022 Depression Screening 08/12/2022 HIV Screening 08/12/2022 Hepatitis C Screening 08/12/2022 Social Influencers of Health Screening 08/12/2022 Zoster Vaccines (1 of 2) 2024 COVID-19 Vaccine ( season) 2024 08/29/2022, 06/05/2021, 05/08/2021 Influenza Vaccine (#1) 2025 , 06/21/2023, 08/11/2022, Additional history exists Pneumococcal Vaccine: 50+ Years Completed 08/21/2022 HIB Vaccines Aged Out No longer eligi [...] to complete this topic RSV Immunization Patients Under 20 months Aged Out No longer eligible based on patient's age to complete this topic Varicella Vaccines Aged Out No longer eligible based on patient's age to complete this topic Goals Goal Patient Goal Type Associated Problems Recent Progress Patient-Stated? Author I just want somebody to do something General Yes Audrey Dias P, OTR/L Note: Patient will know the difference between lip edema and lymph edema Patent will know that this is a chronic condition, symptoms can be managed with weight loss/ diet, exercises /manual lymphatic massage / light compression Patient has been referred for intermittent compression pump ( tactile medical ) Patient has been assessed for Juzo sensation compression pantyhose Goals have been met NO ongoing CDT ( comprehensive decongestive therapy ) indicated at this time Insurance MEDICAID - [place] Advance Directives Documents on File Type Date Recorded Patient Golf Coach Expl anation Health Care Decision (hx) 08/23/2013 AD VALENZUELA DIRECTIVE Health Care Decision (hx) 08/23/2013 AD VALENZUELA DIRECTIVE Health Care Decision (hx) 08/17/2013 AD VALENZUELA DIRECTIVE Health Care Decision (hx) 08/17/2013 AD VALENZUELA DIRECTIVE Care Teams Stummel Selector Relationship Specialty Start Date End Date Jaime Franco MD PCP - General 09/08/17
--- OUTSIDE RECORDS SUMMARY | 2025-03-21 11:04 | XMS_ITS | Clinical Summary ---
Author Organization [facility] Address [address] [place] [address] Care Team Providers Care Administrator Health Care Facility Name Role Phone Marvin Gibbs REFINERY OPERATOR REFORMING UNIT Primary Care Provider [phone] Source Comments PLEASE NOTE, if this patient [...] 60 10/21/2017 1:46 PM EST Temperature 36.6 C (97.9 F) 10/21/2017 1:46 PM EST Respiratory Rate 15 10/21/2017 1:46 PM EST [...] 10/21/2017 Imm-Zoster, Recombinant (1 of 2) 2024 Udt-GTVBN-42 ( season) 2024 08/29/2022, 06/05/2021, 05/08/2021 Alcohol and Drug Screen 09/13/2024 10/21/2017 Depression Annual Screen 09/13/2024 Imm-Influenza (#1) 2025 08/11/2022, 1 10/14/2020, 08/14/2020 Imm-Pneumococcal 50+ Completed 08/21/2022 Cervical Ablation/Cold-Knife Conization Discontinued Cervical Cryotherapy Discontinued [...] EST) GLUCOSE 99 70 - 100 mg/dL [facility] Comment:Reference range appl icable to fasting specimens only BUN 9 5 - 25 mg/dL [facility] CREAT 0.77 0.5 - 1.1 mg/dL [facility] GLOMERULAR FILTRATION RATE > 60 [facility] Comment: If patient is -Dutch, multiply result by 1.21 Chronic Kidney Disease: < 60 ml/min/1.73 square meters Kidney Failure: < 15 ml/min/1.73 square meters SODIUM 138 133 - 145 mmol/L [facility] POTASSIUM 4.1 3.5 - 5.5 mmol/L [facility] CHLORIDE 104 96 - 110 mmol/L [facility] CO2 29 21 - 32 mmol/L [facility] ANION GAP 5 3 - 11 [facility] CALCIUM 9.3 8.5 - 10.5 mg/dL [facility] TOTAL PROTEIN 7.4 6.0 - 8.0 G/dL [facility] ALBUMIN 3.6 3.2 - 5.0 G/dL [facility] BILI, TOTAL 0.2 0.0 - 1.4 mg/dL [facility] SGOT 26 10 - 42 U/L [facility] SGPT 41 10 - 60 U/L [facility] ALK PHOS 193(H) 42 - 121 U/L [facility] Blood specimen (specimen) Blood / Unknown 10/21/2017 2:38 PM EST 10/21/2017 2:53 PM EST Narrative [facility] - 10/21/2017 6:26 PM EST [facility] [address] [place] [address] PT ID [id number] ORD# [id number] Marvin [facility] - BLOOD DRAW Final Result [facility] [address] [place] [address], from Last 3 Months or Most Recently Relevant to Health Maintenance Insurance [facility] [employer] PL[employer] Member Subscriber Plan / Payer (Ef fective 2022-Present) Name:Rudy Floresy Relation to Subscriber:Self Name:Rudy Floresy Payer ID:[id number] Group ID:[id number] Type:Medicaid Address: [facility] [address] [place] [address] Care Teams Administrator Health Care Facility Relationship Specialty Start Date End Date Marvin Gibbs FNP [address] [place] [address] PCP - General Family Medicine, CARPENTER/LABOR 08/10/17
== END 2025-03-21 12:26 | disposition home or self-care (01) ==
PROVIDERS: PCP Nurse Practitioner Family; Visit Provider Physician Assistant
DX: R60.0 Localized edema (principal)

== ENCOUNTER → 2025-03-21 10:18 | Outpatient (BNVA) | payer OTHER, SELFPAY | PROVIDERS: PCP Nurse Practitioner Family; Visit Provider Physician Assistant | DX: R60.0 Localized edema (principal) | CPT/HCPCS: 99212 ==

== ENCOUNTER 2025-07-26 11:20 | Outpatient (AMB) | payer OTHER, SELFPAY ==
[2025-07-26 11:23] VITALS: BP 114/68; PULSE 72; RESP 16; O2SAT 96; BMI 51.7
--- NOTE | 2025-07-26 11:23 | MHC.PC.OV ---
Vital Signs 07/26/25 11:23 Height 5 ft Weight 265 lb BMI 51.7 BP 114/68 Blood Pressure Location Lt brachial Position Sitting Respiration 16 Pulse 72 Pulse Source Pulse Oximeter Pulse Oximetry (%) 96 Oxygen Delivery Method Room Air Intake Visit Reasons: 6 months Embedded Linux Developer Required: No Accompanied by: Self / Same As Patient Allergies No Known Allergies Allergy (Verified 07/26/25 11:30) Tobacco use date assessed: 07/26/25 Dental Screening Dental Screen Date: 07/26/25 Did you have a dental visit in the last 12 months?: Yes Did you have a dental problem in the last 6 months where you did not have access to dental care?: No Was dental information given to patient?: Patient has dentist HPI 6 months HPI Details Chief Complaint The patient presents for a generalized follow-up, reporting increased swelling and pain in her left calf. History of Present Illness The patient is a 50-year-old female presenting for a generalized follow-up and evaluation of left calf swelling and pain. She has a known history of lymphedema and attends a lymphedema clinic on a regular basis. She reports a recent increase in swelling and pain in her left calf. The patient also follows with a developer advocate and an patrol captain. She has a large left thyroid nodule which is being monitored by her endocrinology team. Social History Health Maintenance - The patient follows regularly with a lymphedema clinic. - She follows with a developer advocate. - She is monitored by an endocrinology team for a left thyroid nodule. Review of Systems - Musculoskeletal: The patient reports increased pain in her left calf. - All other systems reviewed and are negative except as noted in the HPI. Physical Exam General: Cooperative, healthy appearing, comfortable, no acute distress and well developed, morbidly obese Orientation: Patient oriented x3 Limitations: No limitations Head: Normal to inspection Ears: Hearing grossly normal bilaterally Nose: Normal external nose present Face and sinus: Normal facial exam Eyes: Appearance normal, both eyes and all related structures Neck: Large nodule left thyroid, Respiratory: Normal respiratory effort and able to speak in complete sentences. Clear to auscultation bilaterally Cardiovascular: Regular rate and rhythm. Normal S1 and S2 GI: Normal to inspection. Soft to palpation and nontender Neuro: Patient oriented x3 Extremities: Increased calf swelling and pain to left calf, tender to palpation, not warm to touch, swollen due to history of lymphedema Results - encouraged pt to get labs drawn in the near future (ordered last january) Plan 1. Left Calf Swelling And Pain The patient presents with increased swelling and pain in her left calf, which is tender to palpation but not warm to the touch. Given her history of lymphedema, the differential includes exacerbation of this condition, but a deep vein thrombosis (DVT) will be ruled out. The patient was encouraged to continue follow-up with her lymphedema clinic. 2. Left Thyroid Nodule A large left thyroid nodule was noted on exam. This is being monitored by her endocrinology team, and she was encouraged to continue her follow-up with them. 3. Lymphedema The patient has a known history of lymphedema. She was encouraged to continue her regular follow-ups at the lymphedema clinic. Discussion Notes I explained that I will be ruling out a DVT today for her left calf swelling and pain. I encouraged her to continue following up with her lymphedema clinic, developer advocate, and patrol captain for her ongoing conditions. We discussed the recent elevated potassium result and the plan to repeat the lab test to verify it. Patient Instructions - We will perform a test to check for a blood clot in your leg (DVT). - Continue to follow up with your lymphedema clinic for your leg swelling. - Please make sure to follow up with your lung doctor (developer advocate) and your hormone doctor (patrol captain). - referred pt previously for colon screen, appears she missed an appt. re-submitted referral [facility] Medical History Screening for colon cancer Thyroid nodule Anemia PONV (postoperative nausea and vomiting) History of endometriosis Lymphedema Chest pain Asthma-COPD overlap syndrome Epigastric pain Pneumonia Asthma BRENNA (obstructive sleep apnea) Dyspnea Pneumonitis Paget disease of bone Vitamin D deficiency Elevated alkaline phosphatase level Abdominal adhesions Tubal ligation evaluation Surgical History History of partial hysterectomy H/O cervical polypectomy History of appendectomy H/O lithotripsy History of renal stent Family History Father BRENNA (obstructive sleep apnea) HTN (hypertension), benign Mother Osteoporosis HTN (hypertension), benign Paternal Grandmother Stomach cancer Maternal Grandmother Lung cancer Paternal Aunt Colon cancer Other Family history of arthritis Social History Household Members: Children Alcohol intake: current Alcohol intake frequency: holidays/special occasions only Alcohol type: wine Patient Tobacco Use Status: Never used Tobacco e-Cigarette/Vaping Use: Never Used Second Hand Smoke Exposure: No service: No Current occupational status: employed Current occupation: N Cognitive needs: No Hearing needs: No Vision needs: No Questionnaire Thrive Questionnaire Date Thrive assessed: 01/11/25 I am a: Patient What is your living situation today?: I have a steady place to live Within the past 12 months, did the food you bought not last and you didn't have the money to get more?: Never true Within the past 12 months, did you worry whether your food would run out before you got money to buy more?: Never true Do you have trouble paying for medicines?: No Do you have trouble getting transportation to medical appointments?: No Do you have trouble paying your heating and electricity bill?: No Do you have trouble taking care of your child, family member or friend?: No Do you have trouble with day-to-day activities such as bathing, preparing meals, shopping, managing finances, etc.?: Yes Are you currently unemployed and looking for a job?: Yes Are you interested in more education?: No Please select the resources that you would like help with: Daily support Currently or been in a relationship where the following occur: No concerns reported THRIVE Score: 0 SEAN-7 AMB Questionnaire SEAN-7 Date SEAN - 7 assessed: 01/18/25 Source: Developed by Drs. Pee Davey, Rosalie Powers, Max Erwin and colleagues, with an educational siddharth from [employer]. Physical exam (Primary Care) Vital Signs: Last Vital Signs Pulse 72 07/26/25 11:23 Resp 16 07/26/25 11:23 BP 114/68 07/26/25 11:23 Pulse Ox 96 07/26/25 11:23 Oxygen Delivery Method Room Air 07/26/25 11:23 BMI result Body Mass Index 51.7 Tobacco/Smoking Status: Tobacco use Status Tobacco use date assessed 07/26/25 07/26/25 11:24 Patient Tobacco Use Status Never used Tobacco 07/26/25 11:24 e-Cigarette/Vaping Use Never Used 07/26/25 11:24 Thrive Assessment: Date of Thrive Assessment Date Thrive assessed 01/11/25 07/26/25 11:24 Currently or been in a relationship where the following occur: No concerns reported Office Procedures Flu Questionnaire Does the patient have a severe egg allergy?: No Does the patient have severe life threatening allergies?: No Does the patient have a fever or illness today?: No Has the patient ever had Guillain-[place] Syndrome?: No Has the patient ever had any past reaction to a flu shot?: No Immunizations Fluarix [id number] (PF) 45 mcg (15 mcg x 3)/0.5 mL IM syringe Performing Provider: IJEOMA Espinal Performing Location[place] [facility] Administered by: Sumaya Nevarez MA on 07/26/25 12:03 Dose Route Admin Location Dispensed Lot Number Expiration Date [facility] Radiologist 0.5 mL IM Left Deltoid 0.5 mL [id number] 03/12/26 [id number] [id number] VIS Given Date VIS Provided VIS Publication Date 07/26/25 Single Vaccine 24 Eligibility Eligibility Date Funding Source Not [facility] Eligible 07/26/25 Private Coding Level of Care Code Est Pt Level 3 (61030) Diagnoses Pain of left calf M79.662 Lymphedema I89.0 Assessment & Plan Assessment & Plan (1) Pain of left calf: Code(s): M79.662 - Pain in left lower leg Category: Medical (2) Lymphedema: Code(s): I89.0 - Lymphedema, not elsewhere classified Category: Medical Plan . Orders: Orders US venous duplex LE LT Today M79.662 - Pain in left lower leg Influenza [id number] Immunization Today Z23 - Encounter for immunization
--- OUTSIDE RECORDS SUMMARY | 2025-07-26 14:26 | XMS_ITS | Clinical Summary ---
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 02/01/2025 Surgical History Surgery Date Site/Laterality Comments SECTION [...] Value Date Recorded Sex Assigned at Female 03/21/2025 12:28 PM EDT Legal Sex Female 2:34 PM EST Gender Identity Female 03/21/2025 12:28 PM EDT Sexual Orientation Straight 03/21/2025 12 :28 PM EDT Obstetrics History Plan of Treatment Health Maintenance Due Date Last Done Comments Breast Cancer Screening 1974 Colorectal Cancer Screening: Colonoscopy 1974 Hepatitis A Vaccines (1 of 2 - Risk 2-dose series) 1993 Hepatitis B Vaccines (1 of 3 - 19+ 3-dose series) 1993 Cervical Cancer Screening: Pap Smear 1995 DTaP,Tdap,and Td Vaccines (2 - Td or Tdap) 08/15/2018 08/15/2008 Cholesterol Screening (Lipid Panel) 08/12/2022 HIV Screening 08/12/2022 Hepatitis C Screening 08/12/2022 Social Influencers of Health Screening 08/12/2022 RSV Immunization Adult Patients (1 - Risk 50-74 years 1-dose series) 2024 Zoster Vaccines (1 of 2) 2024 Depression Screening 09/13/2024 COVID-19 Vaccine ( season) 2025 08/29/2022, 06/05/2021, 05/08/2021 Influenza Vaccine (#1) 2025 [...] on patient's age to complete this topic Insurance [place] - [place] Advance Directives Documents on File Type Date Recorded Patient Nuisance Animal Damage Control Agent Expl anation Health Care Decision (hx) 08/23/2013 AD VALENZUELA DIRECTIVE Health Care Decision (hx) 08/23/2013 AD VALENZUELA DIRECTIVE Health Care Decision (hx) 08/17/2013 AD VALENZUELA DIRECTIVE Health Care Decision (hx) 08/17/2013 AD VALENZUELA DIRECTIVE Care Teams Director Of Personnel Relationship Specialty Start Date End Date Jaime Franco MD [address] [place] [id number] PCP - General Internal Medicine 03/21/25
--- OUTSIDE RECORDS SUMMARY | 2025-07-26 14:26 | XMS_ITS | Encounter Summary ---
Author Organization [facility] Address [address] [place] [phone] Phone Care Team Providers Care Search Planner Name Role Phone Ko Byers TOOL PLANER SET UP OPERATOR Primary Care Provider + Encounter Details Date Type Department Care Team (Late st Contact Info) Description 05/10/2025 Procedure Pass [facility], Ct Scan - [address] [address] Social History Tobacco Use Types Packs/Day Years Used Date Smoking Tobacco: Never Assessed Education Answer Date Recorded Are you interested in more education? Not on abdi e 05/10/2025 Are you concerned about learning? Not on file 05/10/2025 No 05/10/2025 No 05/10/2025 Food Answer Date Recorded Within the past 6 months we worried whether our food would run out before we got money to buy more. Never True 05/10/2025 Within the past 6 months the food we bought just didn't last and we didn't have enough money to get more. Never True Residential Stability Answer Date Recor ded What is your housing situation today? I have peña sing 05/10/2025 How many times have you move d in the past 12 months? Zero (I did not move) 05/10/2025 Paying for Meds Answer Date Recorded Do you have trouble paying for medicines? No 05/10/2025 Paying Utility Bills Answer Date Record ed Do you have trouble paying your heating or elect ricity bill? No 05/10/2025 Transportation Answer Date Recorded Has the lack of transportati on kept you from medical appointments or from getting medications? No 05/10/2025 Digital Access Answer Date Recorded No 05/10/2025 Yes 05/10/2025 Do you have reliable internet access at home? Ye s 05/10/2025 Do you have a device (e.g., phone, tablet, computer) with a working camera? Yes 05/10/2025 Intimate Partner Violence Answer Date R ecorded Are you denied basic needs s uch as food, clothing, or medical care? No 05/10/2025 In the past 12 months have y ou been in a relationship with a person who hurts, threatens, or tries to control you? No 05/10/2025 Are you denied basic needs s uch as food, clothing, or medical care? No 05/10/2025 In the past 12 months have y ou been in a relationship with a person who hurts, threatens, or tries to control you? No 05/10/2025 Comments Unknown Sex and Gender Information Value Date Recorded Sex Assigned at Not on file Legal Sex Female 10:01 AM EDT Gender Identity Not on file Sexual Orientation Not on file documented as of this encounter Functional Status * Calculated C-SSRS Risk Score (Lifetime/Recent) Answer Date of Assessment Author No Risk Indicated 05/10/2025 10:08 AM EDT Jimmie Rand RN * [place] Suicide Severity Rating Scale (Screener/Recent Self-Report) Question Answer Date of Assessment Author 1. Wish to be (Past 1 Month) No 025 10:08 AM EDT Jimmie Rand, CARLOS ALBERTO 2. Non-Specific Active Suici katerina Thoughts (Past 1 Month) No 05/10/2025 10:08 AM EDT Jimmie Rand , CARLOS ALBERTO 6. Suicidal Behavior (Lifetime) No 10:08 AM EDT Jimmie Rand, CARLOS ALBERTO documented as of this encounter Plan of Treatment Not on file documented as of this encounter Visit Diagnoses Not on filedocumented in this encounter Additional Health Concerns Infection Onset Date Last Indicated Resolved Time CoV-Risk 05/10/2025 05/10/2025 05/21/2025 1:21 AM EDT documented as of this encounter Care Teams Search Planner Relationship Specialty Start Date End Date Ko Byers NP [address] [place] [address] PCP - General Nurse Practitioner 05/10/25 documented as of this encounter Additional Source Comments The information contained in this document represents components of the legal health record. It is not the complete legal health record.[facility]
--- OUTSIDE RECORDS SUMMARY | 2025-07-26 14:26 | XMS_ITS | Encounter Summary ---
Author Organization [facility] Address [address] [place] [phone] Phone Care Team Providers Care Rural Carrier Name Role Phone Ko Byers COLOR TECHNICIAN Primary Care Provider + Encounter Details Date Type Department Care Team (Late st Contact Info) Description 05/10/2025 Procedure Pass [facility], Ct Scan - [address] [address] Social History Tobacco Use Types Packs/Day Years [...] 10:08 AM EDT Jimmie Rand RN * [place] Suicide Severity Rating Scale (Screener/Recent Self-Report) Question [...] documented as of this encounter Care Teams Rural Carrier Relationship Specialty Start Date End Date Ko Byers NP [address] [place] [address] PCP - General Nurse Practitioner 05/10/25 documented as of this encounter Additional Source Comments The information contained in this document represents components of the legal health record. It is not the complete legal health record.[facility]
--- OUTSIDE RECORDS SUMMARY | 2025-07-26 14:26 | XMS_ITS | Clinical Summary ---
Author Organization [facility] Address [address] [place] [address] Care Team Providers Care Weed Inspector Name Role Phone Marvin Gibbs BUSINESS DIRECTOR Primary Care Provider [phone] Source Comments PLEASE NOTE, if this patient [...] Done Comments Anxiety Screening 1974 HPV Screening (self-collect) 1974 HPV Screening 1974 Hepatitis C Screening [...] 10/21/2017 Imm-Zoster, Recombinant (1 of 2) 2024 Alcohol and Drug Screen 09/13/2024 10/21/2017 Depression Annual Screen 09/13/2024 [id number] ( season) 2025 08/29/2022, 06/05/2021, 05/08/2021 Imm-Influenza (#1) 2025 08/11/2022, 1 10/14/2020, 08/14/2020 Imm-Pneumococcal 50+ Completed 08/21/2022 Cervical Ablation/Cold-Knife Conization Discontinued Cervical Cryotherapy Discontinued Colposcopy Discontinued Excision/Leep Discontinued HPV Genotyping Discontinued Vaginal Pap Discontinued Vulvoscopy Discontinued Procedures Procedure Name Priority Date/Time Associated Diagnosis Comments COMPREHENSIVE METABOLIC PANEL Routine 10/21/2017 2:38 PM EST Pelvic pain Irregular periods from Last 3 Months or Most Recently Relevant to Health Maintenance Results * (ABNORMAL) COMPRE METAB PANEL (10/21/2017 2:38 PM EST) GLUCOSE 99 70 - 100 mg/dL [facility] Comment:Reference range appl icable to fasting specimens only BUN 9 5 - 25 mg/dL [facility] CREAT 0.77 0.5 - 1.1 mg/dL [facility] GLOMERULAR FILTRATION RATE > 60 [facility] Comment: If patient is -Gabonese, multiply result by 1.21 Chronic Kidney Disease: < 60 ml/min/1.73 square meters Kidney Failure: < 15 ml/min/1.73 square meters SODIUM 138 133 - 145 mmol/L [facility] POTASSIUM 4.1 3.5 - 5.5 mmol/L [facility] CHLORIDE 104 96 - 110 mmol/L [facility] CO2 29 21 - 32 mmol/L [facility] ANION GAP 5 3 - 11 [facility] CALCIUM 9.3 8.5 - 10.5 mg/dL [facility] TOTAL PROTEIN 7.4 6.0 - 8.0 G/dL [facility] ALBUMIN 3.6 3.2 - 5.0 G/dL [facility] BILI, TOTAL 0.2 0.0 - 1.4 mg/dL [facility] SGOT 26 10 - 42 U/L [facility] SGPT 41 10 - 60 U/L [facility] ALK PHOS 193(H) 42 - 121 U/L [facility] Blood specimen (specimen) Blood / Unknown 10/21/2017 2:38 PM EST 10/21/2017 2:53 PM EST Narrative [facility] - 10/21/2017 6:26 PM EST [facility] [address] [place] [address] PT ID [id number] ORD# [id number] Marvin [facility] - BLOOD DRAW Final Result [facility] [address] [place] [address], from Last 3 Months or Most Recently Relevant to Health Maintenance Insurance [facility] [employer] Member Subscriber Plan / Payer (Ef fective 2022-Present) Name:Asya Flores Relation to Subscriber:Self Name:Asya Flores Payer ID:[id number] Group ID:[id number] Type:Medicaid Address: [facility] [address] [place] [address] Care Teams Weed Inspector Relationship Specialty Start Date End Date Marvin Gibbs FNP [address] [place] [address] PCP - General Family Medicine, UTILITIES SERVICE INVESTIGATOR 08/10/17
--- OUTSIDE RECORDS SUMMARY | 2025-07-26 14:26 | XMS_ITS | Clinical Summary ---
Author Organization [facility] Address [address] [facility] [address] [place] [phone] Phone Care Team Providers Care Analysis Specialist Name Role Phone Ko Byers NP Primary Care Provider + Allergies No known active allergies Medications meclizine (ANTIVERT) 25 mg tablet Take 1 tablet (25 mg total) by mouth 3 (three) times a day as needed for dizziness. 30 tablet 05/10/2025 Active Encounters Date Type Department Care Team Description 05/10/2025 10:33 AM EDT - 05/10/2025 7:54 PM EDT Emergency [facility] [address] [place] [address] Charly Gonzalez MD Noone, Caleb J, MD Discharge Disposition: Home or Self Care 05/10/2025 Procedure Pass [facility] [address] [place] [address] 05/10/2025 Procedure [facility] [address] [place] [address] 05/10/[address] [address] from Last 3 Months Social History Tobacco Use Types Packs/Day Years [...] your housing situation today? I have peña chester 05/10/2025 How many times have you move [...] on file Sexual Orientation Not on file Last Filed Vital Signs Vital Sign Reading Time Taken Comments Blood Pressure 121/64 05/10/2025 7:42 PM EDT Pulse 55 05/10/2025 7:42 PM EDT Temperature 36.4 C (97.5 F) 05/10/2025 7:42 PM EDT Respiratory Rate 19 05/10/2025 7:42 PM EDT Oxygen Saturation 98% 05/10/2025 7:42 PM EDT Inhaled Oxygen Concentration - - Weight 117.9 kg (260 lb) 05/10/2025 10:07 AM EDT Height 152.4 cm (5') 05/10/2025 10:07 AM EDT Body Mass Index 50.78 05/10/2025 10:07 AM EDT Plan of Treatment Health Maintenance Due Date Last Done Comments Adult Td,Tdap Booster 1974 LIPID PANEL 1974 DEPRESSION SCREENING 1986 SMOKING Hx and SMOKELESS TOB ACCO SCREENING 1987 HEPATITIS C SCREENING 1992 HIV ONE-TIME SCREENING (18-6 5 YEARS) 1992 PAP SMEAR 1995 MAMMOGRAM 2014 COLOGUARD 2019 COLONOSCOPY 2019 COLORECTAL CANCER SCREENING 2019 FIT TEST 2019 FOBT 2019 SIGMOIDOSCOPY 2019 VIRTUAL COLONOSCOPY 2019 PNEUMOCOCCAL VACCINES (50+ y ears) (1 of 1 - PCV) 2024 RSV VACCINE (1 - Risk 50-74 years 1-dose series) 2024 ZOSTER VACCINES (1 of 2) 2024 INFLUENZA VACCINE (#1) 2025 COVID-19 VACCINE (1 - 2024-2 6 season) 2025 SCREENING FOR DIABETES 05/10/2028 05/10/2025 HEPATITIS A VACCINES Aged Out No long er eligible based on patient's age to complete this topic HIB VACCINES Aged Out No longer eligi ble based on patient's age to complete this topic IPV VACCINES Aged Out No longer eligi ble based on patient's age to complete this topic MENINGOCOCCAL VACCINES (ACWY) Aged Out No longer eligible based on patient's age to complete this topic MENINGOCOCCAL VACCINES (B) Aged Out N o longer eligible based on patient's age to complete this topic Medical Devices Not on file Procedures Procedure Name Priority Date/Time Associated Diagnosis Comments CT ABDOMEN/PELVIS WITH CONTRAST Routine 05/10/2025 4:[address] CHEST PULMONARY ANGIOGRAM (ACUTE) Routine 05/10/2025 4:[address] ANGIO HEAD WITH AND WITHOUT CONTRAST, CT ANGIO NECK WITH CONTRAST Routine 05/10/2025 4:46 PM EDT XR CHEST PORTABLE Routine 05/10/2025 11: 29 AM EDT D-DIMER STAT 05/10/2025 11:23 AM EDT TROPONIN STAT 05/10/2025 11:23 AM EDT LAB ADD ON STAT 05/10/2025 11:23 AM EDT COVID PANDEMIC RESPIRATORY VIRAL ORDER (PRO) STAT 05/10/2025 11:22 AM EDT ECG 12-LEAD STAT 05/10/2025 11:18 AM EDT HUMAN CHORIONIC GONADOTROPIN (HCG), QUANTITATIVE, BLOOD Routine 05/10/2025 10:19 AM EDT TROPONIN Routine 05/10/2025 10:19 AM EDT LFTS (HEPATIC PANEL) Routine 05/10/2025 10:19 AM EDT LIPASE Routine 05/10/2025 10:19 AM EDT BASIC METABOLIC PANEL (BMP) STAT 05/10/2025 10:19 AM EDT CBC AND DIFFERENTIAL STAT 05/10/2025 10:19 AM EDT from Last 3 Months Results * CT ANGIO HEAD WITH AND WITHOUT CONTRAST, CT ANGIO NECK WITH CONTRAST (05/10/2025 4:46 PM EDT) Anatomical Region Laterality Modality Neck Computed Tomogra phy 05/10/2025 5:28 PM EDT Impressions 05/10/2025 5:35 PM EDT 1. No acute intracranial findings on noncontrast head CT. 2. No large vessel occlusion, high-grade stenosis, aneurysm or dissection in the head or neck. Narrative 05/10/2025 5:[address] ANGIO HEAD WITH AND WITHOUT CONTRAST, CT ANGIO NECK WITH CONTRAST Referring clinician's provided indication for this examination in Epic: * Vertigo, central TECHNIQUE: * CTA of the head was performed before and after administration of intravenous contrast using tailored dose modulation techniques. Images were reconstructed in the axial, coronal, and sagittal planes, including angiographic image post-processing. 3D angiographic images with reformatting and post-processing reconstructions were performed and interpreted. * CTA of the neck was performed after administration of intravenous contrast using tailored dose modulation techniques. Images were reconstructed in the axial, coronal, and sagittal planes. 3D angiographic images with reformatting and post- processing reconstructions were performed and interpreted. COMPARISON: None FINDINGS: CT HEAD: Brain Parenchyma: No midline shift, mass effect, parenchymal hemorrhage, or evidence of acute territorial infarct. Ventricular System and Extra-Axial Spaces: No extra-axial fluid collections. Basal cisterns are patent. No hydrocephalus. Osseous and Extracranial Structures: No calvarial fracture or significant soft tissue hematoma. No significant paranasal sinus disease. No orbital abnormality. CTA HEAD: No aneurysm or arteriovenous malformation. Intracranial internal carotid arteries: No occlusion or high grade stenosis. Anterior cerebral arteries: No occlusion or high grade stenosis. Middle cerebral arteries: No occlusion or high grade stenosis. Vertebrobasilar system: No occlusion or high grade stenosis. Posterior cerebral arteries: No occlusion or high grade stenosis. Venous: No dural sinus thrombosis. CTA NECK: Aortic Arch and Branch Vessel Origins: Normal branching anatomy. No high grade stenosis. Right Carotid Artery: No occlusion, high grade stenosis or dissection. Left Carotid Artery: No occlusion, high grade stenosis or dissection. Aberrant retropharyngeal course of the ICA. Right Vertebral Artery: No occlusion, high grade stenosis or dissection. Left Vertebral Artery: No occlusion, high grade stenosis or dissection. Venous structures: The jugular veins enhance normally. NON-VASCULAR FINDINGS: Lungs and Airways: Please refer to separately dictated report. Soft tissues: No adenopathy. 1.3 cm hypodense left thyroid nodule (16:422). Bones: Mild degenerative changes of the visualized spine. Procedure Note Edwin Del Valle MD - 05/10/2025 CT ANGIO HEAD WITH AND WITHOUT CONTRAST, CT ANGIO NECK WITH CONTRAST Referring clinician's provided indication for this examination in Epic: *Vertigo, central TECHNIQUE: * CTA of the head was performed before and after administration ofintravenous contrast using tailored dose modulation techniques. Imageswere reconstructed in the axial, coronal, and sagittal planes, includingangiographic image post- processing. 3D angiographic images withreformatting and post-processing reconstructions were performed andinterpreted. * CTA of the neck was performed after administration of intravenouscontrast using tailored dose modulation techniques. Images werereconstructed in the axial, coronal, and sagittal planes. 3D angiographicimages with reformatting and post-processing reconstructions wereperformed and interpreted. COMPARISON: None FINDINGS: CT HEAD: Brain Parenchyma: No midline shift, mass effect, parenchymal hemorrhage,or evidence of acute territorial infarct. Ventricular System and Extra-Axial Spaces: No extra-axial fluidcollections. Basal cisterns are patent. No hydrocephalus. Osseous and Extracranial Structures: No calvarial fracture or significantsoft tissue hematoma. No significant paranasal sinus disease. No orbitalabnormality. CTA HEAD: No aneurysm or arteriovenous malformation. Intracranial internal carotid arteries: No occlusion or high gradestenosis. Anterior cerebral arteries: No occlusion or high grade stenosis. Middle cerebral arteries: No occlusion or high grade stenosis. Vertebrobasilar system: No occlusion or high grade stenosis. Posterior cerebral arteries: No occlusion or high grade stenosis. Venous: No dural sinus thrombosis. CTA NECK: Aortic Arch and Branch Vessel Origins: Normal branching anatomy. No highgrade stenosis. Right Carotid Artery: No occlusion, high grade stenosis or dissection. Left Carotid Artery: No occlusion, high grade stenosis or dissection.Aberrant retropharyngeal course of the ICA. Right Vertebral Artery: No occlusion, high grade stenosis or dissection. Left Vertebral Artery: No occlusion, high grade stenosis or dissection. Venous structures: The jugular veins enhance normally. NON-VASCULAR FINDINGS: Lungs and Airways: Please refer to separately dictated report. Soft tissues: No adenopathy. 1.3 cm hypodense left thyroid nodule(16:422). Bones: Mild degenerative changes of the visualized spine. IMPRESSION: 1. No acute intracranial findings on noncontrast head CT. 2. No large vessel occlusion, high-grade stenosis, aneurysm or dissectionin the head or neck. us Charly Gonzalez MD IMG CT HEAD/NECK Final Result * CT ABDOMEN/PELVIS WITH CONTRAST (05/10/2025 4:46 PM EDT) Anatomical Region Laterality Modality Abdomen, Pelvis Computed Tomogra phy 05/10/2025 5:29 PM EDT Impressions 05/10/2025 5:35 PM EDT 1. No pulmonary embolus. 2. No acute cardiopulmonary abnormality. 3. No acute abdominal or pelvic abnormality. Narrative 05/10/2025 5:[address] CHEST PULMONARY ANGIOGRAM (ACUTE), CT ABDOMEN/PELVIS WITH CONTRAST Referring clinician's provided indication for this examination in Epic: * PE suspected, low/intermediate prob, positive D-dimer TECHNIQUE: * Multidetector-row CT pulmonary angiography was performed after administration of intravenous contrast. 3D angiographic postprocessing techniques were acquired in the form of axial maximum intensity projection images (MIPS). * Multidetector-row CT of the abdomen and pelvis was performed with intravenous contrast using tailored dose modulation techniques. Images were reconstructed in the axial, coronal, and sagittal planes. COMPARISON: None FINDINGS: CHEST: Pulmonary Angiogram: The pulmonary's are enlarged. Well-opacified. No filling defect. No acute pulmonary embolus. Devices/Tubes/Lines: None. Lungs: Mild bilateral dependent atelectasis. Mild regions of air trapping bilaterally. Pleura: No pleural effusion or pneumothorax. Mediastinum: The heart is slightly enlarged. No pericardial effusion. The aorta is normal in size. No aortic aneurysm or dissection. Lymph Nodes: No significant adenopathy. Chest Wall: No chest wall mass or adenopathy. Bones: No acute osseous abnormality. Mild degenerative changes of the spine. ABDOMEN / PELVIS: Liver: Normal size and enhancement. No hepatic lesion biliary dilation. Biliary: Gallbladder, licks unremarkable Spleen: Normal size and enhancement Pancreas: Normal size and enhancement. No pancreatic lesion or surrounding inflammation. Adrenal Glands: Normal. No nodules. Kidneys/Ureters: The kidneys enhance symmetrically. No hydronephrosis or obstructing calculus. Bowel: The bowel is not obstructed. No inflammatory changes about, no pneumatosis or pneumoperitoneum. The appendix is not identified, no inflammation in the expected location of the appendix Peritoneum/Retroperitoneum: No free fluid or free air. Lymph Nodes: No significant adenopathy. Pelvic Organs/Bladder: The bladder is normal in appearance. Post hysterectomy. No adnexal lesion. Vessels: Aorta and IVC are normal in size Bones/Soft Tissues: No acute osseous abnormality. Procedure Note Lidya Mckeon MD, PhD - 05/10/2025 CT CHEST PULMONARY ANGIOGRAM (ACUTE), CT ABDOMEN/PELVIS WITH CONTRAST Referring clinician's provided indication for this examination in Epic: *PE suspected, low/intermediate prob, positive D-dimer TECHNIQUE: * Multidetector-row CT pulmonary angiography was performed afteradministration of intravenous contrast. 3D angiographic postprocessingtechniques were acquired in the form of axial maximum intensity projectionimages (MIPS). * Multidetector-row CT of the abdomen and pelvis was performed withintravenous contrast using tailored dose modulation techniques. Imageswere reconstructed in the axial, coronal, and sagittal planes. COMPARISON: None FINDINGS: CHEST: Pulmonary Angiogram: The pulmonary's are enlarged. Well-opacified. No filling defect. No acutepulmonary embolus. Devices/Tubes/Lines: None. Lungs: Mild bilateral dependent atelectasis. Mild regions of air trappingbilaterally. Pleura: No pleural effusion or pneumothorax. Mediastinum: The heart is slightly enlarged. No pericardial effusion. Theaorta is normal in size. No aortic aneurysm or dissection. Lymph Nodes: No significant adenopathy. Chest Wall: No chest wall mass or adenopathy. Bones: No acute osseous abnormality. Mild degenerative changes of thespine. ABDOMEN / PELVIS: Liver: Normal size and enhancement. No hepatic lesion biliary dilation. Biliary: Gallbladder, licks unremarkable Spleen: Normal size and enhancement Pancreas: Normal size and enhancement. No pancreatic lesion or surroundinginflammation. Adrenal Glands: Normal. No nodules. Kidneys/Ureters: The kidneys enhance symmetrically. No hydronephrosis orobstructing calculus. Bowel: The bowel is not obstructed. No inflammatory changes about, nopneumatosis or pneumoperitoneum. The appendix is not identified, noinflammation in the expected location of the appendix Peritoneum/Retroperitoneum: No free fluid or free air. Lymph Nodes: No significant adenopathy. Pelvic Organs/Bladder: The bladder is normal in appearance. Posthysterectomy. No adnexal lesion. Vessels: Aorta and IVC are normal in size Bones/Soft Tissues: No acute osseous abnormality. IMPRESSION: 1. No pulmonary embolus. 2. No acute cardiopulmonary abnormality. 3. No acute abdominal or pelvic abnormality. Charly Gonzalez MD IMG CT ABD/PELVIS Final Result * CT CHEST PULMONARY ANGIOGRAM (ACUTE) (05/10/2025 4:46 PM EDT) Anatomical Region Laterality Modality Chest, Thoracic Vasculature Comp uted Tomography 05/10/2025 5:29 PM EDT Impressions 05/10/2025 5:35 PM EDT 1. No pulmonary embolus. 2. No acute cardiopulmonary abnormality. 3. No acute abdominal or pelvic abnormality. Narrative 05/10/2025 5:[address] CHEST PULMONARY ANGIOGRAM (ACUTE), CT ABDOMEN/PELVIS WITH CONTRAST Referring clinician's provided indication for this examination in Epic: * PE suspected, low/intermediate prob, positive D-dimer TECHNIQUE: * Multidetector-row CT pulmonary angiography was performed after administration of intravenous contrast. 3D angiographic postprocessing techniques were acquired in the form of axial maximum intensity projection images (MIPS). * Multidetector-row CT of the abdomen and pelvis was performed with intravenous contrast using tailored dose modulation techniques. Images were reconstructed in the axial, coronal, and sagittal planes. COMPARISON: None FINDINGS: CHEST: Pulmonary Angiogram: The pulmonary's are enlarged. Well-opacified. No filling defect. No acute pulmonary embolus. Devices/Tubes/Lines: None. Lungs: Mild bilateral dependent atelectasis. Mild regions of air trapping bilaterally. Pleura: No pleural effusion or pneumothorax. Mediastinum: The heart is slightly enlarged. No pericardial effusion. The aorta is normal in size. No aortic aneurysm or dissection. Lymph Nodes: No significant adenopathy. Chest Wall: No chest wall mass or adenopathy. Bones: No acute osseous abnormality. Mild degenerative changes of the spine. ABDOMEN / PELVIS: Liver: Normal size and enhancement. No hepatic lesion biliary dilation. Biliary: Gallbladder, licks unremarkable Spleen: Normal size and enhancement Pancreas: Normal size and enhancement. No pancreatic lesion or surrounding inflammation. Adrenal Glands: Normal. No nodules. Kidneys/Ureters: The kidneys enhance symmetrically. No hydronephrosis or obstructing calculus. Bowel: The bowel is not obstructed. No inflammatory changes about, no pneumatosis or pneumoperitoneum. The appendix is not identified, no inflammation in the expected location of the appendix Peritoneum/Retroperitoneum: No free fluid or free air. Lymph Nodes: No significant adenopathy. Pelvic Organs/Bladder: The bladder is normal in appearance. Post hysterectomy. No adnexal lesion. Vessels: Aorta and IVC are normal in size Bones/Soft Tissues: No acute osseous abnormality. Procedure Note Lidya Mckeon MD, PhD - 05/10/2025 CT CHEST PULMONARY ANGIOGRAM (ACUTE), CT ABDOMEN/PELVIS WITH CONTRAST Referring clinician's provided indication for this examination in Epic: *PE suspected, low/intermediate prob, positive D-dimer TECHNIQUE: * Multidetector-row CT pulmonary angiography was performed afteradministration of intravenous contrast. 3D angiographic postprocessingtechniques were acquired in the form of axial maximum intensity projectionimages (MIPS). * Multidetector-row CT of the abdomen and pelvis was performed withintravenous contrast using tailored dose modulation techniques. Imageswere reconstructed in the axial, coronal, and sagittal planes. COMPARISON: None FINDINGS: CHEST: Pulmonary Angiogram: The pulmonary's are enlarged. Well-opacified. No filling defect. No acutepulmonary embolus. Devices/Tubes/Lines: None. Lungs: Mild bilateral dependent atelectasis. Mild regions of air trappingbilaterally. Pleura: No pleural effusion or pneumothorax. Mediastinum: The heart is slightly enlarged. No pericardial effusion. Theaorta is normal in size. No aortic aneurysm or dissection. Lymph Nodes: No significant adenopathy. Chest Wall: No chest wall mass or adenopathy. Bones: No acute osseous abnormality. Mild degenerative changes of thespine. ABDOMEN / PELVIS: Liver: Normal size and enhancement. No hepatic lesion biliary dilation. Biliary: Gallbladder, licks unremarkable Spleen: Normal size and enhancement Pancreas: Normal size and enhancement. No pancreatic lesion or surroundinginflammation. Adrenal Glands: Normal. No nodules. Kidneys/Ureters: The kidneys enhance symmetrically. No hydronephrosis orobstructing calculus. Bowel: The bowel is not obstructed. No inflammatory changes about, nopneumatosis or pneumoperitoneum. The appendix is not identified, noinflammation in the expected location of the appendix Peritoneum/Retroperitoneum: No free fluid or free air. Lymph Nodes: No significant adenopathy. Pelvic Organs/Bladder: The bladder is normal in appearance. Posthysterectomy. No adnexal lesion. Vessels: Aorta and IVC are normal in size Bones/Soft Tissues: No acute osseous abnormality. IMPRESSION: 1. No pulmonary embolus. 2. No acute cardiopulmonary abnormality. 3. No acute abdominal or pelvic abnormality. Charly Gonzalez MD IMG CT CHEST F inal Result * XR Chest Portable (05/10/2025 11:29 AM EDT) Anatomical Region Laterality Modality Chest Computed Radiogr aphy 05/10/2025 12:0 5 PM EDT Impressions 05/10/2025 12:08 PM EDT Hazy opacities in the right lung base could represent atelectasis or pneumonia. Narrative 05/10/2025 12:08 PM EDT XR CHEST PORTABLE Referring clinician's provided indication for this examination in [facility]: Cough COMPARISON: None. FINDINGS: Devices/Tubes/Lines: None. Lungs: Hazy opacities in the right lung base. Pleura: No pleural effusion or pneumothorax. Heart/Mediastinum: Normal heart and mediastinum. Bones/Soft Tissues: No significant abnormality. Procedure Note Mara Eugene MD - 05/10/2025 XR CHEST PORTABLE Referring clinician's provided indication for this examination in [facility]:Cough COMPARISON: None. FINDINGS: Devices/Tubes/Lines: None. Lungs: Hazy opacities in the right lung base. Pleura: No pleural effusion or pneumothorax. Heart/Mediastinum: Normal heart and mediastinum. Bones/Soft Tissues: No significant abnormality. IMPRESSION: Hazy opacities in the right lung base could represent atelectasis orpneumonia. Charly Gonzalez MD IMG XR CHEST F inal Result * (ABNORMAL) D-dimer (05/10/2025 11:23 AM EDT) D-DIMER 630(H) <500 ng/mL FEU [facility] Comment:In patients with low to moderate pre-test probability scores for VTE (PE or DVT), a D-Dimer cut-off less than 500 ng/mL (FEU) has a negative predictive value (NPV) of 97 to 100%. Blood 05/10/2025 11:2 3 AM EDT 05/10/2025 11:32 AM EDT Charly Gonzalez MD LAB BLOOD BKR ORD ERABLES Final Result Performing Organization Address City/[facility]/ZIP Co de Phone Number [address] [address] * Lab Add On: Lipase; LFTs; Troponin (05/10/2025 11:23 AM EDT) TEST REQUESTED LIPASE LFTS TROPONIN [facility] Comments (Chemistry) Add on order being processed. Floor or provider will be notified if testing cannot be performed [facility] 05/10/2025 11:2 3 AM EDT 05/10/2025 11:32 AM EDT Charly Gonzalez MD LAB BLOOD ORDERAB LES Final Result Performing Organization Address City/[facility]/ZIP Co de Phone Number [address] [address] * Troponin (05/10/2025 11:23 AM EDT) Only the most recent of2 resultswithin the time period is included. Troponin-T, HS Gen5 <6 0 - 9 ng/L [facility] Blood 05/10/2025 11:2 3 AM EDT 05/10/2025 11:32 AM EDT Charly Gonzalez MD LAB BLOOD BKR ORD ERABLES Final Result Performing Organization Address [facility] Co de Phone Number [address] [address] * COVID Pandemic Respiratory Viral Order (PRO) (05/10/2025 11:22 AM EDT) Test Ordered Rapid COVID has been ordered [facility] Specimen Source/Description NASAL [facility] SARS-CoV 2 (COVID-19) PCR Not Detected Not Detected [facility] Comment: SARS-CoV-2 not detected Negative results do not preclude SARS-CoV-2 infection and should not be used as the sole basis for patient management decisions. Negative results must be combined with clinical observations, patient history, and epidemiological information. Other (Nasopharyngeal swab) 05/10/2025 11:22 AM EDT 05/10/2025 1:15 PM EDT Charly Gonzalez MD LAB GENERAL ORDER JURGEN Final Result Performing Organization Address [facility] de Phone Number [address] [address] * ECG 12-LEAD (05/10/2025 11:18 AM EDT) Ventricular Rate EKG/MIN 55 BPM [facility] Atrial Rate 55 BPM [facility] OK Interval 144 ms [facility] QRS Duration 76 ms [facility] QT Interval 448 ms [facility] QTC Interval 428 ms [facility] P [place] 3 degrees [facility] R Wave [place] 23 degrees [facility] T Wave [place] -25 degrees [facility] 05/10/2025 11:1 8 AM EDT 05/10/2025 1:59 PM EDT Narrative [facility] - 05/10/2025 1:59 PM EDT Sinus bradycardia Low voltage QRS Cannot rule out Inferior infarct , age undetermined Abnormal ECG No previous ECGs available Confirmed by Keyon Valentino ([id number]) on 05/10/2025 1:59:27 PM Charly Gonzalez MD ECG ORDERABLES F inal Result [facility] * (ABNORMAL) LFTs (hepatic panel) (05/10/2025 10:19 AM EDT) ALKALINE PHOSPHATASE 256(H) 39 - 117 U/L [facility] TOTAL BILIRUBIN 0.3 0.0 - 1.2 mg/dL [facility] DIRECT BILIRUBIN <0.1 0.0 - 0.2 mg/dL [facility] Bilirubin (Indirect) NOT CALCULATED 0 - 1.5 mg/dL [facility] AST 38(H) 0 - 37 U/L [facility] ALT 46(H) 0 - 40 U/L [facility] TOTAL PROTEIN 7.9 6.5 - 8.0 g/dL [facility] ALBUMIN 4.0 3.9 - 4.8 g/dL [facility] GLOBULIN 3.9 1 - 4.8 g/dL [facility] A/G Ratio 1.03 1.00 - 4.80 RATIO [facility] 05/10/2025 10:1 9 AM EDT 05/10/2025 10:38 AM EDT us Charly Gonzalez MD LAB BLOOD BKR ORD ERABLES Final Result [facility] [address] [place] [address] * (ABNORMAL) CBC and differential (05/10/2025 10:19 AM EDT) WBC 9.88 4.00 - 11.00 K/uL [facility] RBC 5.62(H) 4.00 - 5.20 M/uL [facility] HGB 13.6 12.0 - 16.0 g/dL [facility] HCT 44.1 36.0 - 46.0 % [facility] [facility] PLT 281 150 - 450 K/uL [facility] MCV 78.5(L) 80.0 - 100.0 fL [facility] MCH 24.2(L) 27.0 - 31.0 pg [facility] MCHC 30.8(L) 32.0 - 36.0 g/dL [facility] RDW 14.6(H) 11.5 - 14.5 % [facility] MPV 10.6 8.4 - 12.0 fL [facility] NRBC 0.00 0.00 /100 WBCs [facility] ABSOLUTE NRBC 0.00 0.00 K/uL [facility] DIFF METHOD Auto [facility] NEUTS 64.7 48.0 - 76.0 % [facility] LYMPHS 26.7 18.0 - 41.0 % [facility] MONOS 4.3 4.0 - 11.0 % [facility] EOS 2.7 0.0 - 5.0 % [facility] BASOS 0.9 0.0 - 1.5 % [facility] Granulocytes, immature (%) 0.7 0.0 - 0.9 % [facility] ABSOLUTE NEUTS 6.39 1.92 - 7.60 K/uL [facility] ABSOLUTE LYMPHS 2.64 0.72 - 4.10 K/uL [facility] ABSOLUTE MONOS 0.42 0.16 - 1.10 K/uL [facility] ABSOLUTE EOS 0.27 0.00 - 0.50 K/uL [facility] ABSOLUTE BASOS 0.09 0.00 - 0.15 K/uL [facility] Granulocytes, immature 0.07 0.00 - 0.09 K/uL [facility] Blood 05/10/2025 10:1 9 AM EDT 05/10/2025 10:38 AM EDT us Charly Gonzalez MD LAB BLOOD BKR ORD ERABLES Final Result [facility] [address] [place] [address] * HCG (Quantitative, Blood) (05/10/2025 10:19 AM EDT) Pathologist [facility] HCG BETA 2.0 mIU/mL [facility] Comment: Interpretation: FEMALE: Negative: Less than or equal to 1 mIU/mL. 4 Weeks Post Conception: 9.5 - 750 mIU/mL. 12 Weeks Post Conception: 84172 - 220997 mIU/mL. Test Methodology Renae e801 Patient results determined by assays using different manufacturers or methods may not be comparable. 05/10/2025 10:1 9 AM EDT 05/10/2025 10:38 AM EDT Charly Gonzalez MD LAB BLOOD BKR ORD ERABLES Final Result Performing Organization Address [facility]/ZIP Co de Phone Number [address] [address] * Lipase (05/10/2025 10:19 AM EDT) Pathologist [facility] LIPASE 29 16 - 63 U/L [facility] 05/10/2025 10:1 9 AM EDT 05/10/2025 10:38 AM EDT Charly Gonzalez MD LAB BLOOD BKR ORD ERABLES Final Result Performing Organization Address [facility]/ZIP Co de Phone Number [address] [address] * Basic metabolic panel (05/10/2025 10:19 AM EDT) Pathologist [facility] SODIUM 141 133 - 146 mmol/L [facility] CHLORIDE 106 96 - 108 mmol/L [facility] POTASSIUM 4.1 3.3 - 5.1 mmol/L [facility] Comment:Specimen slightly he molyzed, result may be falsely elevated. CO2 25 21 - 35 mmol/L [facility] BUN 12 6 - 19 mg/dL [facility] CREATININE 0.70 0.5 - 1.5 mg/dL [facility] GLUCOSE 86 70 - 99 mg/dL [facility] CALCIUM 9.6 8.4 - 10.3 mg/dL [facility] EGFR 105 >59 mL/min/1.7 3m2 [facility] Comment:Estimated glomerular filtration rate calculated using the CKD-EPI refit equation. ANION GAP 14 10 - 20 mmol/L [facility] Blood 05/10/2025 10:1 9 AM EDT 05/10/2025 10:38 AM EDT us Charly Gonzalez MD LAB BLOOD BKR ORD ERABLES Final Result [facility] [address] [place] [address] from Last 3 Months Insurance [place] [place] [address] [place] [address] [address] [place] [address] [place] [address] [place] [address] ACO Care Teams Analysis Specialist Relationship Specialty Start Date End Date Ko Byers NP [facility] [place] [address] PCP - General Nurse Practitioner 05/10/25 Additional Source Comments The information contained in this document represents components of the legal health record. It is not the complete legal health record.[facility]
--- OUTSIDE RECORDS SUMMARY | 2025-07-26 14:26 | XMS_ITS | Encounter Summary ---
Author Organization [facility] Address [address] [place] [phone] Phone Care Team Providers Care Marine Scientist Name Role Phone Ko Byers BRIM POUNCER Primary Care Provider + Encounter Details Date Type Department Care Team (Late st Contact Info) Description 05/10/2025 Procedure Pass [facility], Ct Scan - [address] [address] Social History Tobacco Use Types Packs/Day Years [...] 10:08 AM EDT Jimmie Rand RN * [place] Suicide Severity Rating Scale (Screener/Recent Self-Report) Question [...] documented as of this encounter Care Teams Marine Scientist Relationship Specialty Start Date End Date Ko Byers NP [address] [place] [address] PCP - General Nurse Practitioner 05/10/25 documented as of this encounter Additional Source Comments The information contained in this document represents components of the legal health record. It is not the complete legal health record.[facility]
== END 2025-07-26 12:26 | disposition home or self-care (01) ==
LOC: HO.HMCC 11:21
PROVIDERS: PCP Nurse Practitioner Family; Visit Provider Nurse Practitioner Family
DX: M79.662 Pain in left lower leg (principal); I89.0 Lymphedema, not elsewhere classified; Z23 Encounter for immunization

== ENCOUNTER 2025-07-26 13:25 | Outpatient (REF) | payer OTHER, SELFPAY ==
--- NOTE | ~2025-07-26 | US_ITS ---
EXAMINATION: US TRIPLEX LOWER EXTREMITY, LEFT CLINICAL INFORMATION: Pain. Rule out DVT COMPARISON: Venous insufficiency lower extremity ultrasound May 2020 TECHNIQUE: Color-flow triplex imaging with spectral analysis and compression Doppler were performed on the left lower extremity. FINDINGS: Respiratory variation, normal compression and augmented flow are noted throughout the left lower extremity. The visualized common femoral vein, superficial femoral vein, profunda femoral vein, popliteal vein and midcalf peroneal and posterior tibial venous segments show no evidence of deep venous thrombosis. Contralateral right common femoral vein is patent. There is no Urban's cyst. US/US venous duplex LE LT IMPRESSION: No evidence of deep venous thrombosis involving the left lower extremity. Electronically signed by: Aaliyah Medina MD 07/26/2025 02:02 PM [facility]
== END 2025-07-26 13:26 | disposition home or self-care (01) ==
LOC: HO.HMGCX 13:25
PROVIDERS: PCP Nurse Practitioner Family; Visit Provider Nurse Practitioner Family
DX: Z23 Encounter for immunization (principal); I89.0 Lymphedema, not elsewhere classified; M79.662 Pain in left lower leg
CPT/HCPCS: 90471; 90656; 93971; 99212

== ENCOUNTER → 2025-07-26 13:26 | Outpatient (BNV) | payer OTHER, SELFPAY | PROVIDERS: PCP Nurse Practitioner Family; Visit Provider Radiology Diagnostic Radiology | DX: M79.662 Pain in left lower leg (principal) | CPT/HCPCS: 93971 ==